=== PATIENT | male | born 1940 | race Caucasian/White ===

== ENCOUNTER 2023-09-19 10:38 | Emergency (ER) | payer OTHER, SELFPAY ==
[2023-09-19 10:44] VITALS: BP 143/74; PULSE 60; RESP 14; TEMP 36.5; O2SAT 99; BMI 28.5
--- NOTE | 2023-09-19 11:27 | ED_ITS ---
HPI - General Adult General Date Seen: 09/19/23 Chief complaint: Hip Injury/Pain Stated complaint: falling - right leg weakness Time Seen by Provider: 09/19/23 11:26 History of Present Illness HPI narrative: This is a very pleasant 82-year-old gentleman accompanied to the ER today by his concern for pain affecting his left buttock and radiating down his left leg in particular down the left hamstring. He is generally healthy. He has a history of colon cancer with colon resection done about 2 or 3 years ago (in [place]) with negative lymph node. He did not require any follow-up radiation or chemotherapy for his colon cancer and is not thought to be cancer free. He does not take any anticoagulants other than baby aspirin. He does have a history of hypertension (on lisinopril) and dyslipidemia (on a statin). He 1st started experiencing some pain in his low back about a month or 2 ago. He says he was under his sink trying to fix a drain when his back was really hurting and made it difficult for him to get up. He saw his physicians in [facility] and apparently was offered pain meds but decided to manage conservatively with over counter medications. Pain got better for a while. He has had some intermittent low back pain since then. However for the past couple of weeks he has had worsening pain in particular in his right posterior pelvis and buttock and radiating down his right arm. Pain is gotten worse for the past couple of days and he is now getting shooting pains down his leg and he feels like sometimes when he steps on his leg it might give out on him. He has not fallen yet, but he came to the ER today saying that he needs an evaluation to figure out what is wrong before he falls. No numbness or weakness in his leg. He is not exactly sure why it is giving out though. No fever or chills. No anterior abdominal pain. His pain is predominantly in the right buttock area. He is not having much back pain today. Left leg is normal. Related Data Home Medications ?Medication ?Instructions ?Recorded ?Confirmed allopurinol 100 mg tablet 100 mg PO DAILY 09/19/23 09/19/23 aspirin 81 mg tablet,delayed 81 mg PO DAILY 09/19/23 09/19/23 release (Adult Aspirin Regimen) atenolol .ROUTE 09/19/23 atorvastatin .ROUTE 09/19/23 hydrochlorothiazide PO 09/19/23 lisinopril 2.5 mg tablet 2.5 mg PO DAILY 09/19/23 09/19/23 pantoprazole 40 mg granules 40 mg PO DAILY 09/19/23 09/19/23 delayed-release for susp in packet (Protonix) Previous Rx's ?Medication ?Instructions ?Recorded Walker- 4 Wheels #1 ea 09/19/23 hydrocodone 5 mg-acetaminophen 325 1 tab PO Q4-6H PRN pain #14 tabs 09/19/23 mg tablet metoclopramide HCl 10 mg tablet 10 mg PO Q6H PRN nausea and 09/19/23 (Reglan) vomiting #10 tabs Allergies Allergy/AdvReac Type Severity Reaction Status Date / Time acetaminophen [From Percocet] AdvReac Mild Depression Verified 09/19/23 10:53 oxycodone [From Percocet] AdvReac Mild Depression Verified 09/19/23 10:53 PFSH PFSH Social History Smoking Status: Former smoker What tobacco products do you use: cigarettes Smoking quit date/years: >15 years ago Do you use any of these nicotine containing products: None How often do you have a drink containing alcohol: monthly or less How many standard drinks containing alcohol do you have on a typical day: 1 or 2 How often do you have six or more drinks on one occasion: Never AUDIT-C Alcohol total score: 1 Non-prescribed substance use: denies use Exam Narrative: Exam Narrative: Constitutional: Appears well-developed and well-nourished. Alert. Conversant. Non toxic. HENT: Head: Atraumatic. Nose: Nose normal. Mouth/Throat: Oral mucosa is clear and moist. no trismus. Pharynx normal. Eyes: Conjunctivae normal. EOM normal. Pupils equal, round, and reactive to light. No scleral icterus. Neck: Normal range of motion. Neck supple. No tracheal deviation present. Cardiovascular: Normal rate, regular rhythm. No gallop. No friction rub. No murmur heard. Symmetric radial artery pulses Pulmonary/Chest: Effort normal. No stridor. No respiratory distress. No wheezes. No rales. No rhonchi . No tenderness. Abdominal: Soft. Bowel sounds normal. No distension. No mass. No tenderness. No rebound. No guarding. Musculoskeletal: RUE: Normal range of motion. No tenderness. No deformity LUE: Normal range of motion. No tenderness. No deformity RLE: Normal range of motion. No edema. No tenderness. No deformity LLE: Normal range of motion. No edema. No tenderness. No deformity Neurological: Alert and oriented to person, place, and time. Normal strength. CN II-VII intact. No sensory deficit. GCS eye subscore is 4. GCS verbal subscore is 5. GCS motor subscore is 6. Normal coordination . He walks with a walker in the hallway. No footdrop. He uses the walker to prevent his right leg from giving out on him. Sensory: Normal light touch sensation bilaterally on the anteromedial thigh (L3), medial malleolus (L4), dorsal first web space (L5), lateral malleolus (S1). Strength: 5/5 strength hip flexors (L3) on the rig ht and left 5/5 strength in the quadriceps (L4) on t he right and left 5/5 strength in the tibialis anterior 5/5 strength in the EHL (L5) on the righ t and left 5/5 strength in the gastrocnemius (S1) o n the right and left 5/5 strength in the hamstring on the rig ht and left DTRs: symmetric in the patella (2/4) Negative straight leg raise bilaterally. Skin: Skin is warm and dry. No rash noted. No pallor. Normal capillary refill. Psychiatric: Normal mood. Normal affect. Const: Vital Signs, click to edit/add: Vital Signs - 24 hr 09/19/23 10:44 Temperature 97.7 F Pulse Rate [Pulse Oximeter] 60 Respiratory Rate 14 Blood Pressure [Ri ght Upper Arm] 143/74 H Pulse Oximetry 99 Oxygen Delivery Me thod Room Air Course Vital Signs Vital signs: Initial Vital Signs Temperature 97.7 F 09/19/23 10:44 Temperature Source Temporal Artery Scan 09/19/23 10:44 Pulse Rate 60 09/19/23 10:44 Respiratory Rate 14 09/19/23 10:44 Blood Pressure 143/74 H 09/19/23 10:44 Blood Pressure Mean 97 09/19/23 10:44 Blood Pressure Position Sitting 09/19/23 10:44 Pulse Oximetry 99 09/19/23 10:44 Oxygen Delivery Method Room Air 09/19/23 10:44 Vital Signs Temperature 97.7 F 09/19/23 10:44 Pulse Rate 60 09/19/23 10:44 Respiratory Rate 14 09/19/23 10:44 Blood Pressure 143/74 H 09/19/23 10:44 Pulse Oximetry 99 09/19/23 10:44 Oxygen Delivery Method Room Air 09/19/23 10:44 Temperature 97.7 F 09/19/23 10:44 Pulse Rate 60 09/19/23 10:44 Respiratory Rate 14 09/19/23 10:44 Blood Pressure 143/74 H 09/19/23 10:44 Pulse Oximetry 99 09/19/23 10:44 Oxygen Delivery Method Room Air 09/19/23 10:44 Medical Decision Making MDM Narrative Medical decision making narrative: This patient presented with right-sided buttock pain with some pain radiating down his right leg. Broad differential considered. This would include lumbar spine pathology such as lumbar radiculopathy. Also consider pelvic pathology such as right hip fracture, pelvic or hip muscle injury. No evidence for i nguinal hernia, shingles, cellulitis. No evidence for ischemia in the leg. No focal weakness to suggest stroke. No fever chills to suggest a septic hip arthritis. The patient did not sustain any recent trauma, therefore x-rays are not necessary due to the low likelihood of fracture or subluxation. The patient has not had a fever, saddle/perineal anesthesia, bilateral foot numbness, or bowel or bladder dysfunction. There is no clinical evidence of cauda equina syndrome, discitis, spinal/epidural space hematoma or epidural abscess. However given history of malignancy and progressively worsening symptoms not responding to conservative management over the past month or 2, as well as his age, we did feel that MRI of his lumbar spine was indicated. MRI is obtained and shows evidence for lesions in the T12 vertebral body as well as in the right side of the sacrum and right iliac bone. These are very suspicious for metastatic disease, per Radiology report. Discussed the radiographic findings with the patient, his , and his granddaughter. Discussed with him that this point we do not know the exact nature of these lesions. However there suspicious for malignancy and given history of colon cancer, could be metastatic colon cancer lesions. He will certainly need further workup to determine whether not these lesions are cancer, or what else may be causing them. He does not currently have any medical care here in [place] (since he lives most of the year in [place]). He did recently have some labs done through his doctors at [facility] in [place]. On July 31 he had a carcinoma embryonic antigen level that was 1.6. He also had screening basic labs on July 31 that were otherwise normal. Alk- phos 112, total bilirubin 0.8. Other LFTs normal. Hemoglobin A1c normal. He plans to be here for the next couple of months and his family can be here to support him. Therefore I did contact our Oncology Department, Dr. Cash. Discussed the presentation with her. She requests that we add on a CBC and CMP to start the workup. These are ordered and pending at the time of discharge. The oncology clinic will contact the patient to arrange expeditious outpatient follow-up. Like will need further workup with PET-CT imaging, additional labs, probably biopsy. Discussed this with the patient and his family. He feels like he will be able to manage his pain with [place]-prescription provided. We discussed opiate precautions. Will also get him a walker to help with balance and prevent falls. Precautions for return to the ER reviewed. Also Recommended outpatient follow-up with the [facility] where he has had primary care [place] in the past. Return to the ER any time if needed. Lab Data Labs: Lab Results 09/19/23 Range/Units 14:37 WBC 10.57 (4.50-11.00) K/uL RBC 5.20 (4.30-5.90) m/uL Hgb 15.0 (13.5-17.5) gm/dL Hct 44.4 (37.0-53.0) % MCV 85 (80-100) fL MCH 29 (26-34) pg MCHC 34 (32-36) gm/dL RDW Coeff of Sweta 13.9 (11.5-15.5) % Plt Count 203 (140-440) K/uL Neut % (Auto) 64.4 (42.0-72.0) % Lymph % (Auto) 27.3 (20-44) % [place] % (Auto) 7.3 (0.0-11.0) % Eos % (Auto) 0.6 (0.0-7.0) % Baso % (Auto) 0.2 (0.0-3.0) % Neut # (Auto) 6.81 (1.7-7.0) K/uL Lymph # (Auto) 2.89 (0.90-2.90) K/uL [place] # (Auto) 0.80 (0.00-0.90) K/UL Eos # (Auto) 0.06 (0.00-0.50) K/uL Baso # (Auto) 0.02 (0.00-0.30) K/uL Abs Immat Gran (auto) 0.02 (0.00-0.30) K/uL Imm/Tot Granulo (auto) 0.2 % Sodium 136 (135-149) mmol/L Potassium 3.8 (3.6-5.1) mmol/L Chloride 106 (96-114) mmol/L Carbon Dioxide 20 (20-32) mmol/L Anion Gap 10 (7-15) mEq/L BUN 33 H (7-30) mg/dL Creatinine 1.3 (0.5-1.5) mg/dL Estimated Creat Clear 48.91 Estimated GFR 55 ml/min Glucose 119 H (60-115) mg/dL Calcium 9.6 (8.4-10.6) mg/dL Total Bilirubin 0.8 (0.1-1.5) mg/dL AST 36 H (12-35) U/L ALT 17 (4-50) U/L Alkaline Phosphatase 193 H (40-150) U/L Total Protein 8.1 (6.0-8.3) g/dL Albumin 4.8 (3.3-5.0) g/dL Imaging Data MRI L spine: Attestation: I have reviewed the pertinent imaging results. Radiologist's impression: Impression: 1. Multiple suspicious marrow lesions involving the T12 vertebral body, right S1 sacral ala, and right ilium, highly suspicious for metastatic disease. Clinical correlation advised. 2. No evidence of pathologic fracture. 3. Scattered spondylosis with low-grade neural foraminal narrowing as detailed. No spinal canal stenosis. 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 Discharge Plan Discharge Clinical Impression: Cancer, metastatic to bone Patient Disposition: Home, Self-Care Condition: Stable Instructions: Bone Metastasis (ED) Additional Instructions: As we discussed, you will receive a phone call from the [facility] oncology clinic to set up a plan for follow-up and further workup. It is very important for you to follow-up with the oncologists and get further testing. Also, please call your doctors at the [facility] to set up a checkup appointment with them. They will be able to help you with ongoing pain management. Use the prescription for pain medicine if needed for pain. Be careful because this can cause drowsiness and dizziness. Avoid dangerous activities such as driving while you are taking the pain killers. Prescriptions: New hydrocodone-acetaminophen 5-325 mg tablet 1 tab PO Q4-6H PRN (Reason: pain) Qty: 14 0RF metoclopramide HCl [Reglan] 10 mg tablet 10 mg PO Q6H PRN (Reason: nausea and vomiting) Qty: 10 0RF (DME) Walker- 4 Wheels Misc See Rx Instructions .Route Qty: 1 0RF Rx Instructions: As directed No Action lisinopril 2.5 mg tablet 2.5 mg PO DAILY pantoprazole [Protonix] [address] for susp in packet 40 mg PO DAILY hydrochlorothiazide PO atorvastatin .ROUTE atenolol .ROUTE aspirin [Adult Aspirin Regimen] 81 mg tablet,delayed release (DR/EC) 81 mg PO DAILY allopurinol 100 mg tablet 100 mg PO DAILY Follow Up/Referrals: Provider,Not a Local [Primary Care Provider] - Stand Alone Forms: My Team Zone Info Instructions
--- NOTE | 2023-09-19 11:45 | CRLHL7_ITS ---
For Patients: As a result of the Century Cures Act, medical imaging exams and procedure reports are released immediately into your electronic medical record. You may view this report before your referring provider. If you have questions, please contact your health care provider. Indication: Low back, right buttock, and right leg pain. Right leg weakness. Technique: Multiplanar, multisequence, MRI of the lumbar spine, obtained without contrast. Comparison: No relevant comparison studies available at this institution. Findings: The normal lumbar lordosis is. No significant spondylolisthesis. Minimal chronic anterior wedge configuration of L1. No acute osseous abnormality. Lipid-rich hemangioma within the left aspect of the T12 vertebral body. Focal sclerotic, STIR hyperintense lesions are noted at the right superior T12 body, right S1 sacral ala, and scattered throughout the right ilium. Low-lying conus medullaris, terminating at approximately L3-L4. No suspicious findings identified in the paraspinal soft tissues. Bilateral presumed renal cysts. Degenerative changes and bridging osteophytes at the included SI joints. T11-T12: No neural foraminal or spinal canal stenosis. T12-L1: Mild diffuse disc bulge. No neural foraminal or spinal canal stenosis. L1-L2: Mild diffuse disc bulge. No neural foraminal or spinal canal stenosis. L2-L3: Mild diffuse disc bulge, mild facet arthropathy. No neural foraminal or spinal canal stenosis. L3-L4: Mild diffuse disc bulge, mild facet arthropathy. No left, mild-moderate right neural foraminal narrowing. No spinal canal stenosis. L4-L5: Mild diffuse disc bulge, moderate right asymmetric facet arthropathy. No left, mild right neural foraminal narrowing. No spinal canal stenosis.. L5-S1: Shallow central protrusion, mild facet arthropathy. No neural foraminal or spinal canal stenosis. Impression: 1. Multiple suspicious marrow lesions involving the T12 vertebral body, right S1 sacral ala, and right ilium, highly suspicious for metastatic disease. Clinical correlation advised. 2. No evidence of pathologic fracture. 3. Scattered spondylosis with low-grade neural foraminal narrowing as detailed. No spinal canal stenosis. Dictated by Fely Vazquez MD @ 09/19/2023 12:52:33 PM (Electronically Signed)
[2023-09-19 14:45] LABS: Basophils Absolute Auto 0.02 K/uL (0.00-0.30); Basophils Percent Auto 0.2 % (0.0-3.0); Eosinophils Absolute Auto 0.06 K/uL (0.00-0.50); Eosinophils Percent Auto 0.6 % (0.0-7.0); Hematocrit 44.4 % (37.0-53.0); Immature Granulocytes Abs Auto 0.02 K/uL (0.00-0.30); Immature Granulocytes Pct Auto 0.2 %; Lymphocytes Absolute Auto 2.89 K/uL (0.90-2.90); Lymphocytes Percent Auto 27.3 % (20-44); Mean Corpuscular HGB Conc 34 gm/dL (32-36); Mean Corpuscular Hemoglobin 29 pg (26-34); Mean Corpuscular Volume 85 fL (80-100); Monocytes Percent Auto 7.3 % (0.0-11.0); Neutrophils Absolute Auto 6.81 K/uL (1.7-7.0); Neutrophils Percent Auto 64.4 % (42.0-72.0); Platelet Count* 203 K/uL (140-440); RDW Coefficient of Variation % 13.9 % (11.5-15.5); White Blood Count* 10.57 K/uL (4.50-11.00)
[2023-09-19 14:52] LABS: Slide Review Reflex No
[2023-09-19 15:15] LABS: Albumin* 4.8 g/dL (3.3-5.0); Chloride* 106 mmol/L (96-114); Potassium* 3.8 mmol/L (3.6-5.1); Sodium* 136 mmol/L (135-149)
[2023-09-19 15:17] LABS: Creatinine* 1.3 mg/dL (0.5-1.5); Est. Creatinine Clearance* 48.91; Estimated Glomerular Filt Rate 55 ml/min
[2023-09-19 15:18] LABS: Alanine Aminotransferase* 17 U/L (4-50); Alkaline Phosphatase* 193 U/L (40-150); Anion Gap 10 mEq/L (7-15); Aspartate Amino Transferase* 36 U/L (12-35); Bilirubin Total* 0.8 mg/dL (0.1-1.5); Blood Urea Nitrogen* 33 mg/dL (7-30); Calcium* 9.6 mg/dL (8.4-10.6); Carbon Dioxide* 20 mmol/L (20-32); Glucose* 119 mg/dL (60-115); Total Protein* 8.1 g/dL (6.0-8.3)
== END 2023-09-19 14:43 | disposition home or self-care (01) ==
PROVIDERS: Emergency Provider Emergency Medicine
DX: C79.51 Secondary malignant neoplasm of bone (principal)
CPT/HCPCS: 36415; 72148; 80053; 85025; 99284

== ENCOUNTER 2023-09-24 14:32 | Outpatient (CLI) | payer OTHER, SELFPAY ==
--- NOTE | 2023-09-24 15:00 | CRLHL7_ITS ---
For Patients: As a result of the 21st Century Cures Act, medical imaging exams and procedure reports are released immediately into your electronic medical record. You may view this report before your referring provider. If you have questions, please contact your health care provider. INDICATION: Colon cancer metastatic to bone TECHNIQUE: CT chest, abdomen and pelvis acquired with 103 mL Isovue 370 IV contrast. COMPARISON: 09/19/2023 lumbar spine MRI FINDINGS: CHEST: Cardiovascular structures: Heart size is normal. CABG. Postsurgical changes in the ascending aorta. Mediastinum and rebeca: Enlarged right hilar lymph node measuring 2.3 x 1.4 cm. No other adenopathy. Lungs and pleura: Hyperinflation and upper lung predominant paraseptal emphysema. 8 x 4 mm right upper lobe pulmonary nodule image 18 series 3. 7 x 5 mm subpleural nodule medial right lower lobe image 42. 8 mm nodule in the left lung on image 40. Numerous additional tiny nodules throughout both lungs. These are best seen on the MIP images. Chest wall and axilla: No mass or adenopathy. Bones: Sclerosis in the T5 vertebral body compatible with metastasis. Sclerotic T12 metastasis similar to the MRI. Sternotomy. ABDOMEN AND PELVIS: Liver: Unremarkable. Gallbladder and bile ducts: Subtle area of high density in the gallbladder, likely gallstone. Pancreas: Unremarkable. Spleen: Unremarkable. Adrenal glands: Unremarkable. Kidneys: Bilateral cysts. GI tract: Right hemicolectomy. Diverticulosis involving the remainder of the colon. No diverticulitis. Vascular structures: Unremarkable. Lymph nodes: Unremarkable. Miscellaneous: Very small left inguinal hernia containing a couple of sigmoid diverticula. Pelvic Organs: Soft tissue fullness and enhancement in the posterior left prostate gland spanning roughly 3 cm. Prostate cancer not excluded. Bones: Sclerotic lesions in right S1, right inferior pubic bone compatible with metastatic disease. Subtle sclerosis in the medial right iliac bone and posterior right femur also suspicious. IMPRESSION: 1. Multiple sclerotic lesions involving the spine and pelvis, likely metastatic disease. 2. Possible primary tumor in the posterior left prostate gland. Pattern of metastases is consistent with prostate cancer. 3. Alternatively, metastatic disease could be from patient`s known primary colon cancer. 4. Numerous lung nodules, nonspecific. Largest measures 8 mm. 5. Probable cholelithiasis. Please note that all CT scans at this facility use dose modulation, iterative reconstruction, and/or weight-based dosing when appropriate to reduce radiation dose to as low as reasonably achievable. Dictated by Benigno Maher MD @ 09/25/2023 3:42:06 PM (Electronically Signed)
== END 2023-09-24 14:33 | disposition home or self-care (01) ==
LOC: CT 14:35
PROVIDERS: Visit Provider Clinical Nurse Specialist
DX: C79.51 Secondary malignant neoplasm of bone (principal); C18.9 Malignant neoplasm of colon, unspecified
CPT/HCPCS: 71260; 74177; Q9967

== ENCOUNTER 2023-09-27 11:00 | Outpatient (REF) | payer OTHER, SELFPAY ==
[2023-09-29 11:08] LABS: Carcinoembryonic Antigen 1.5 ng/mL
== END 2023-09-27 11:01 | disposition home or self-care (01) ==
LOC: NPINS 11:00
PROVIDERS: Visit Provider Internal Medicine Hematology & Oncology
DX: R97.20 Elevated prostate specific antigen [PSA] (principal); C18.9 Malignant neoplasm of colon, unspecified; R74.8 Abnormal levels of other serum enzymes
CPT/HCPCS: 36415; 82378; 84153

== ENCOUNTER 2023-10-03 15:07 | Outpatient (RCR) | payer OTHER, SELFPAY ==
--- NOTE | 2023-10-15 13:15 | ONC.NURNOTE ---
Addendum entered by Viki Alcaraz RN 10/21/23 14:06: Patient called this morning stating that he spent 2 hours on the phone with [facility] on Saturday trying to get his biopsy results. He questions whether someone from our office can call him to let him know. Results were found in the [facility] record. Last week patient told engineering technical writer that he did not want to schedule at the [facility] to come up with a plan, so no appointment was made. He states that he just wants the results. He was told that [facility] is here and is willing to call with the diagnosis, but that no plan can be made for him without an appointment. He was agreeable to this, however he asked treatment planning questions when he was called. He was told that we would need to do more testing and make an appointment to come up with a plan. See note from [facility]. Original Note: Patient had his bone biopsy completed at [facility] last Saturday. Chemical Etch Operator contacted patient to determine where he plans to follow up with this. He has not adjusted his flight home (Oct 25). He states that he has an appointment set up at home in [place] to discuss all results. He did question how to get this information and have it sent down there. He was told that he will need to contact [facility] if he has not heard from them by Saturday. He is understanding of this and is aware that he can reach out with any help needed.
== END 2024-03-31 23:59 | disposition home or self-care (01) ==
LOC: CCIC 15:07
PROVIDERS: Visit Provider Physician Assistant
DX: C18.9 Malignant neoplasm of colon, unspecified (principal); M89.9 Disorder of bone, unspecified; R97.20 Elevated prostate specific antigen [PSA]; M54.18 Radiculopathy, sacral and sacrococcygeal region; R74.8 Abnormal levels of other serum enzymes; Z79.82 Long term (current) use of aspirin
CPT/HCPCS: 99202; 99204; 99205

== ENCOUNTER 2024-08-21 17:03 | Emergency (ER) | payer OTHER, SELFPAY ==
--- OUTSIDE RECORDS SUMMARY | 2024-07-08 06:43 | XMS_ITS | Encounter Summary ---
Author Name [facility] [place] [place] Organization [facility] Address [address] [place] [address] Care Team Providers Care Airport Operations Manager Name Role Phone CHAS REARDON Primary Care Provider Unavailabl e Insurance Providers: All historical and current Section Date Range: From patient's date of to the date document was created. This section includes the names of all active insurance providers for the patient. Insurance Provider Type of Coverage Plan Name Start of Policy Coverage End of Policy Coverage Group Number Member ID Insurance Provider's Telephone Number Policy Tejeda's Name Patient's Relationship to Policy Tejeda [facility] ([place] MEDICARE ADVANTAGE [facility] ([facility]) Mar 25, 2011 [id number] JULIETTE LOO PATIENT [facility] (R) MEDICARE ADVANTAGE [facility] ([facility]) Mar 25, 2011 [facility] ([facility]) [id number] CINDA JULIETTE PATIENT [facility] (WNR) MEDICARE ADVANTAGE [facility] ([facility]) Mar 25, 2011 [facility] ([facility]) [id number] JULIETTE LOO PATIENT [facility] (R) MEDICARE ADVANTAGE [facility] ([facility]) Mar 25, 2011 [id number] JULIETTE LOO PATIENT Selected Encounter This section includes the information on record at [place] for the Encounter. Date/Time Encounter Type Encounter Description Reason Pro vider Source Jul 08, 2024 11:43 AM Outpatient Encounter PRIMARY CARE/MEDICINE IHE Encounter Template Text not used by [place] Plan of Treatment: Future Appointments (+ 6 months) and Future Tests (+/- 45 days) The Plan of Treatment section includes future care activities for the patient from all [place] treatmentfacilities. This section includes future appointments and future orders which are active, pending or scheduled. Active, Pending, and Scheduled Orders This section includes a listing of several types of active, pending, and scheduled orders, including clinic medications orders, diagnostic test orders, procedure orders and consult orders; where the start date of the order is 45 days before the date of the Encounter or 45 days after the date of theEncounter. The data comes from all [place] treatment facilities. Test Date/Time Test Type Test Details Facility Name Jul 03, 2024 12:00 AM Laboratory - Chemi stry Order COMPREHENSIVE METABOLIC (CHEM 13) BLOOD-GOLD SERUM SP [facility] Jul 03, 2024 12:00 AM Laboratory - Chemi stry Order LIPID PROFILE BLOOD-GOLD SERUM SP [facility] Jul 03, 2024 12:00 AM Laboratory - Chemi stry Order HEMOGLOBIN A1C (LAB) BLOOD-LAVENDER$ SP [facility] Jul 03, 2024 12:00 AM Laboratory - Chemi stry Order TSH BLOOD-GOLD SERUM SP [facility] Jul 03, 2024 12:00 AM Laboratory - Chemi stry Order CBC WITH NO DIFF BLOOD-LAVENDER$ SP [facility] Jul 03, 2024 12:00 AM Laboratory - Chemi stry Order VITAMIN D,25-OH,TOTAL BLOOD-GOLD SERUM SP [facility] Social History: Smoking Status (Most current) and Tobacco Use (All prior to encounter date) This section includes the most current, and the historical, smoking and tobacco- related health factors from the [place] facility where the Encounter took place. Current Smoking Status This section includes the most current smoking, or tobacco-related health factor, from the [place] facility where the Encounter took place. Date/Time Current Smoking Status Comment Facil ity Jul 04, 2023 09:09 AM [place]-TOBACCO QUIT 15 YRS OR MORE [facility] Tobacco Use History This section includes a history of the smoking, or tobacco-related health factors, that were collected on or before the date of the Encounter. The data comes from the [place] facility where the Encounter took place. Date/Time Smoking Status/Tobacco Use Comment F acility Jul 04, 2023 09:09 AM [place]-TOBACCO QUIT 15 YRS OR MORE [facility] Encounter Notes: All associated encounter notes This section contains the clinical notes associated to the Encounter. Date/Time Encounter Note(s) Provider Source Jul 08, 2024 11:43 AM ADMINISTRATIVE NOT E: LOCAL TITLE: SCHEDULERS' NOTE STANDARD TITLE: ADMINISTRATIVE NOTE DATE OF NOTE: JUL 08, 2024@11:43 ENTRY DATE: JUL 08, 2024@11:43:56 AUTHOR: MYRA HARVEY COSIGNER: URGENCY: STATUS: COMPLETED MESSAGE WAS LEFT FOR 1ST ATTEMPT TRYING TO GET IN CONTACT TO SCHEDULE FOR COR PACT MD 2 PATIENT DID NOT ANSWER, A VOICEMAIL WAS LEFT. FURTHER ATTEMPTS AND A LETTER WILL BE MADE /tiffany/ GRIS HANSON Signed: 07/08/2024 11:54 GRIS HARVEY OC
--- OUTSIDE RECORDS SUMMARY | 2024-07-09 05:44 | XMS_ITS | Encounter Summary ---
Author Name [facility] ([place]) [facility] Address [address] [place] [address] Care Team Providers Care Optimization Consultant Name Role Phone CHAS REARDON Primary Care [...] Tejeda's Name Patient's Relationship to Policy Tejeda [facility] (W MEDICARE ADVANTAGE [facility] ([facility]) Mar 25, 2011 [id number] JULIETTE LOO PATIENT [facility] (R) MEDICARE ADVANTAGE [facility] ([facility]) Mar 25, 2011 [facility] ([facility]) [id number] CINDA JULIETTE PATIENT [facility] (WNR) MEDICARE ADVANTAGE [facility] ([facility]) Mar 25, 2011 [facility] ([facility]) [id number] JULIETTE LOO PATIENT [facility] (R) MEDICARE ADVANTAGE [facility] ([facility]) Mar 25, 2011 [id number] JULIETTE LOO PATIENT Selected Encounter This section includes the information on record at [place] for the Encounter. Date/Time Encounter Type Encounter Description Reason Pro vider Source Jul 09, 2024 10:44 AM Outpatient Encounter PRIMARY CARE/MEDICINE IHE Encounter Template Text not used by [place] Plan of Treatment: Future Appointments (+ 6 months) and Future Tests (+/- 45 days) The Plan of Treatment section includes future care activities for the patient from all [place] treatmentfacilities. This section includes future appointments and [...] of theEncounter. The data comes from all [place] treatment facilities. Test Date/Time Test Type Test Details Facility Name Jul 03, 2024 12:00 AM Laboratory - Chemi stry Order COMPREHENSIVE METABOLIC (CHEM 13) BLOOD-GOLD SERUM SP ONCE [facility] Jul 03, 2024 12:00 AM Laboratory - Chemi stry Order HEMOGLOBIN A1C (LAB) BLOOD-LAVENDER$ [facility] Jul 03, 2024 [...] Order VITAMIN D,25-OH,TOTAL BLOOD-GOLD SERUM SP [facility] Social History: Smoking Status (Most current) and Tobacco Use (All prior to encounter date) This section includes the most current, and the historical, smoking and tobacco- related health factors from the [place] facility where the Encounter took place. Current Smoking Status This section includes the most current smoking, or tobacco-related health factor, from the [place] facility where the Encounter took place. Date/Time Current Smoking Status Comment Facil ity Jul 04, 2023 09:09 AM [place]-TOBACCO FORMER USER [facility] Tobacco Use History This section includes a history of the smoking, or tobacco-related health factors, that were collected on or before the date of the Encounter. The data comes from the [place] facility where the Encounter took place. Date/Time Smoking Status/Tobacco Use Comment F acility Jul 04, 2023 09:09 AM [place]-TOBACCO QUIT 15 YRS OR MORE [facility] Encounter Notes: All associated encounter notes This section contains the clinical notes associated to the Encounter. Date/Time Encounter Note(s) Provider Source Jul 09, 2024 10:45 AM SCANNED NOTE: LOCAL TITLE: POULTRY GRADER LETTER STANDARD TITLE: SCANNED NOTE DATE OF NOTE: JUL 09, 2024@10:45 ENTRY DATE: JUL 09, 2024@10:45:43 AUTHOR: MYRA HARVEY EXP COSIGNER: URGENCY: STATUS: COMPLETED Matt Platt [address] [address] [email or web address] JULIETTE LOO [address] [place], [place] [address] Dear [place]: JULIETTE LOO Date:JUL 09, 2024 You have been referred to [facility] 2 clinic. We have attempted to contact you by telephone but were unsuccessful. Please contact us at your earliest convenience at [phone] or [phone] to schedule your appointment. We value you as being a collaborative partner for your health care and concerns. Thank you for your Service. Confidential Information For Official Use Only GRIS HARVEY CB Jul 09, 2024 10:44 AM ADMINISTRATIVE NOT E: LOCAL TITLE: SCHEDULERS' NOTE STANDARD TITLE: ADMINISTRATIVE NOTE DATE OF NOTE: JUL 09, 2024@10:44 ENTRY DATE: JUL 09, 2024@10:44:43 AUTHOR: MYRA HARVEY EXP COSIGNER: URGENCY: STATUS: COMPLETED 3RD FINAL ATTEMPT TRYING TO GET IN CONTACT WITH [X]CALLED PATIENT TO GET SCHEDULED FOR cor pact md 2, PATIENT DID NOT ANSWER CALL, LEFT VOICEMAIL LETTING THEM KNOW THE REASON FOR THE APPOINTMENT TO GET SCHEDULED FOR AND TO GIVE US A CALL BACK TO GET SCHEDULED [ ]CALLED PATIENT TO GET SCHEDULED FOR, PATIENT DID NOT ANSWER CALL, WAS NOT ABLE TO LEAVE VOICEMAIL DUE TO NUMBER BEING DISCONNECTED/ NOT IN SERVICE /tiffany/ GRIS HANSON Signed: 07/09/2024 10:45 GRIS HARVEY OC
--- OUTSIDE RECORDS SUMMARY | 2024-07-21 04:06 | XMS_ITS | Encounter Summary ---
Author Name Department of Vetera Affairs ([place]) Organization [facility] Address [address] [place] [address] Care Team Providers Care Rim Turning Finisher Name Role Phone CHAS REARDON Primary Care [...] Tejeda's Name Patient's Relationship to Policy Tejeda [facility] (W MEDICARE ADVANTAGE [facility] ([facility]) Mar 25, 2011 [id number] JULIETTE LOO PATIENT [facility] (WNR) MEDICARE [facility] (WNR) Mar 25, 2011 [facility] ([facility]) [id number] CINDA JULIETTE PATIENT [facility] (WNR) MEDICARE ADVANTAGE [facility] (WNR) Mar 25, 2011 [id number] JULIETTE LOO PATIENT [facility] (WNR) MEDICARE ADVANTAGE [facility] ([facility]) Mar 25, 2011 [facility] ([facility]) [id number] JULIETTE LOO PATIENT Selected Encounter This section includes the information on record at [place] for the Encounter. Date/Time Encounter Type Encounter Description Reason Pro vider Source Jul 21, 2024 09:06 AM Outpatient Encounter PRIMARY CARE/MEDICINE IHE Encounter Template Text not used by [place] Plan of Treatment: Future Appointments (+ 6 months) and Future Tests (+/- 45 days) The Plan of Treatment section includes future care activities for the patient from all [place] treatmentfacilities. This section includes future appointments and [...] of theEncounter. The data comes from all [place] treatment facilities. Test Date/Time Test Type Test Details Facility Name Jul 03, 2024 12:00 AM Laboratory - Chemi stry Order COMPREHENSIVE METABOLIC (CHEM 13) BLOOD-GOLD SERUM SP ONCE [facility] Jul 03, 2024 12:00 AM [...] and tobacco- related health factors from the [place] facility where the Encounter took place. Current Smoking Status This section includes the most current smoking, or tobacco-related health factor, from the [place] facility where the Encounter took place. Date/Time Current Smoking Status Comment Facil ity Jul 04, 2023 09:09 AM [place]-TOBACCO FORMER USER [facility] Tobacco Use History This section includes a history of the smoking, or tobacco-related health factors, that were collected on or before the date of the Encounter. The data comes from the [place] facility where the Encounter took place. Date/Time Smoking Status/Tobacco Use Comment F acility Jul 04, 2023 09:09 AM [place]-TOBACCO QUIT 15 YRS OR MORE [facility] Encounter Notes: All associated encounter notes This section contains the clinical notes associated to the Encounter. Date/Time Encounter Note(s) Provider Source Jul 21, 2024 09:06 AM ADMINISTRATIVE NOT E: LOCAL TITLE: SCHEDULERS' NOTE STANDARD TITLE: ADMINISTRATIVE NOTE DATE OF NOTE: JUL 21, 2024@09:06 ENTRY DATE: JUL 21, 2024@09:07:04 AUTHOR: MYRA HARVEY COSIGNER: URGENCY: STATUS: COMPLETED RTC disposition Maximum number of attempts to schedule an appointment have been completed for the following clinic [X] COR PACT MD 2 [ ] COR MH YELLOW HOLTER TECHNICIAN [ ] [facility] PA[facility] PHARM [ ] [facility] LAB DRAW return to clinic order has been dispositioned, if need to schedule patient, please enter new rtc. /tiffany/ GRIS HANSON Signed: 07/21/2024 09:07 GRIS HARVEY
--- OUTSIDE RECORDS SUMMARY | 2024-08-04 05:38 | XMS_ITS | Continuity of Care Document ---
Author Name [facility] Organization [facility] Care Team Providers Care Textile Examiner Name Role Phone [facility] Unavailable Unavailable Problems Combined list of problems from Department of Defense and Veterans Affairs facilities. It does not include entries that were removed or entered in error. Problem Status Onset Date Problem Type Date of Resolution Comments Source CAD - Coronary artery disease Active Condition Sep 03, 2016 Entered By: SUNIL CAMACHO Comment: 2001? CABG 1V and dacron aortic aneurysm repair. [facility] Carcinoma of descending colon Active Condition Jul 16 0 Entered By: SUNIL CAMACHO Comment: 08/20/2018 s/p resection of 2 feet of colon with 16 LNs negative x pt report. No chemo or XRT. [facility] CO-MANAGED PCP Dr. Cecilia Rodríguez [place] Active Condition Sep 03, 2016 Entered By: SUNIL CAMACHO Comment: Cardiology Dr. Mcc[facility] 2019 Entered By: SUNIL CAMACHO Comment: Oncology [facility] 2019 Entered By: SUNIL CAMACHO Comment: Gastroenterology [facility] Diverticulosis Active Condition July 232011 Entered By: LYNDON GUTIERREZ Comment: colonoscopy 05/05/11 at [place], no polyps, int hemorrhoids [facility] DM - Diabetes mellitus Active Condition [facility] GERD - Gastro-esophageal reflux disease Active Condition [facility] Gout Active Condition [facility] History of male erectile disorder Active Condition [facility] HLD - Hyperlipidemia (SNOMED CT 29893190) Active Condition [facility] HTN - Hypertension (SNOMED CT [id number]) Active Condition [facility] Chronic kidney disease Inactive Condition 07/04/2023 [facility] Hypokalemia Inactive Condition 07/04/2023 [facility] Vitamin D deficiency Inactive Condition 07/04/2023 [facility] Diagnosis: ICD-10-CM 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 Medication Details Route Status Patient Instructions Prescription Expires Prescription Number Last Dispense Date Ordering Provider Order Date Order Qty Source ALLOPURINOL 100MG TAB TAKE ONE TABLET BY MOUTH DAILY ORAL ACTIVE ROVERAN,G IORGIO 2019 [facility] ASPIRIN 81MG TAB,EC TAKE ONE TABLET BY MOUTH DAILY ORAL ACTIVE KAHNG,LYNDON 2011 [facility] ATORVASTATI N CA 10MG TAB TAKE ONE TABLET BY MOUTH DAILY ORAL ACTIVE ROVERAN,G IORGIO 2016 [facility] CHOLECALCIF WAN 25MCG (1,000UNIT) TAB TAKE TWO TABLETS BY MOUTH DAILY ORAL ACTIVE ROVERAN,G IORGIO 2016 [facility] HYDROCHLORO THIAZIDE 25MG/TRIAMT ERENE 37.5MG CAP TAKE 2 CAPSULES BY MOUTH DAILY ORAL ACTIVE ROVERAN,G IORGIO 2015 [facility] KETOCONAZOL E 2% SHAMPOO SHAMPOO SMALL AMOUNT TOPICALL Y EVERY 72 HOURS FOR FUNGAL INFECTIO N TOPICA L 07/04/2024 [id number] Emily REARDON P 2023 120 [facility] LISINOPRIL 2.5MG TAB TAKE ONE TABLET BY MOUTH DAILY ORAL ACTIVE ROVERAN,G IORGIO 2015 [facility] LOPERAMIDE CAP,ORAL TAKE 1MG BY MOUTH TWICE A WEEK ORAL ACTIVE ROVERAN,G IORGIO 2019 [facility] MAGNESIUM OXIDE TAB TAKE BY MOUTH DAILY ORAL ACTIVE ROVERAN,G IORGIO 2021 [facility] PANTOPRAZOL E NA 40MG TAB,EC TAKE ONE TABLET BY MOUTH EVERY MORNING BEFORE MEAL ORAL ACTIVE ROVERAN,G IORGIO 2016 [facility] TAMSULOSIN HCL 0.4MG CAP TAKE 1 CAPSULE BY MOUTH AT BEDTIME ORAL ACTIVE ROVERAN,G IORGIO 2020 [facility] Immunizations Combined list of available immunizations from the Department of Defense and Veterans Affairs facilities. Immunization Series Date Given Administered By Site Reaction Lot Number CVX Code Drug Casino Investigator Status Comments Source INFLUENZA, HIGH-DOSE, TRIVALENT, PF 2023 135 complet ed HISTORICA L INFORMATI ON - FROM PUBLIC AGENCY, Received from [facility] Immunizat ion Registry on 4; [id number] [facility] INFLUENZA, HIGH-DOSE, QUADRIVALENT 2022 197 complet ed HISTORICA L INFORMATI ON - FROM PUBLIC AGENCY, Received from [facility] Immunizat ion Registry on 4; [id number] [facility] INFLUENZA, UNSPECIFIED FORMULATION 2021 88 complet ed HISTORICA L INFORMATI ON - FROM PATIENT'S WRITTEN RECORD, [facility] INFLUENZA, INJECTABLE, QUADRIVALENT, PRESERVATIVE FREE 2021 150 complet ed HISTORICA L INFORMATI ON - FROM OTHER REGISTRY, [facility] COVID-19 (MODERNA), MRNA, LNP-S, PF, 100 MCG/0.5ML DOSE OR 50 MCG/0.25ML DOSE 3 2021 207 complet ed HISTORICA L INFORMATI ON - FROM OTHER REGISTRY, [facility] COVID-19 (MODERNA), MRNA, LNP-S, PF, 100 MCG/0.5ML DOSE OR 50 MCG/0.25ML DOSE 2 2020 207 complet ed [facility] INFLUENZA, HIGH-DOSE, QUADRIVALENT 2020 197 complet ed HISTORICA L INFORMATI ON - FROM OTHER REGISTRY, [facility] INFLUENZA, UNSPECIFIED FORMULATION 2020 88 complet ed [facility] COVID-19 (MODERNA), MRNA, LNP-S, PF, 100 MCG/0.5ML DOSE OR 50 MCG/0.25ML DOSE 1 2020 207 complet ed [facility] INFLUENZA, HIGH-DOSE, QUADRIVALENT 2019 197 complet ed HISTORICA L INFORMATI ON - FROM OTHER REGISTRY, [facility] INFLUENZA, UNSPECIFIED FORMULATION 2019 88 complet ed [facility] NTE TDAP 1 2018 115 complet ed HISTORICA L INFORMATI ON - FROM OTHER REGISTRY, [facility] INFLUENZA, INJECTABLE, QUADRIVALENT, PRESERVATIVE FREE 2018 150 complet ed HISTORICA L INFORMATI ON - FROM OTHER REGISTRY, [facility] ZOSTER RECOMBINANT 2 2018 187 complet ed HISTORICA L INFORMATI ON - FROM OTHER REGISTRY, [facility] ZOSTER RECOMBINANT 1 2018 187 complet ed HISTORICA L INFORMATI ON - FROM OTHER REGISTRY, [facility] INFLUENZA, INJECTABLE, QUADRIVALENT 2017 158 complet ed HISTORICA L INFORMATI ON - FROM OTHER REGISTRY, [facility] INFLUENZA, INJECTABLE, QUADRIVALENT, PRESERVATIVE FREE 2016 150 complet ed HISTORICA L INFORMATI ON - FROM OTHER REGISTRY, [facility] INFLUENZA, SEASONAL, INJECTABLE, PRESERVATIVE FREE 2015 140 complet ed [facility] INFLUENZA, UNSPECIFIED FORMULATION 2015 88 complet ed HISTORICA L INFORMATI ON - FROM OTHER REGISTRY, [facility] INFLUENZA, UNSPECIFIED FORMULATION 2014 88 complet ed HISTORICA L INFORMATI ON - FROM OTHER REGISTRY, [facility] INFLUENZA, UNSPECIFIED FORMULATION 2014 88 complet ed [facility] PNEUMOCOCCAL CONJUGATE PCV 13 1 2014 133 complet ed HISTORICA L INFORMATI ON - FROM OTHER REGISTRY, [facility] INFLUENZA, UNSPECIFIED FORMULATION 2013 88 complet ed HISTORICA L INFORMATI ON - FROM OTHER REGISTRY, [facility] INFLUENZA, UNSPECIFIED FORMULATION 2013 88 complet ed [facility]) UNSPECIFIED FORMULATION 2012 139 complet ed [facility] INFLUENZA, UNSPECIFIED FORMULATION 2011 88 complet ed [facility] INFLUENZA, UNSPECIFIED FORMULATION 2011 88 complet ed [facility] PNEUMOCOCCAL, UNSPECIFIED FORMULATION 2011 109 complet ed [facility] INFLUENZA, UNSPECIFIED FORMULATION 2010 88 complet ed [facility] Results Combined list of recent chemistry, hematology and other laboratory results from Department of Defense and Veterans Affairs, ranging from 15 months to all on record, depending upon the facility. Order Name Results Value Reference Range Date Interpretation Specimen Comments Source HEMOGLOBI N A1C (LAB) HEMOGLOBIN A1C/HEMOGLO BIN.TOTAL IN BLOOD 6.3 4.6 - 6.0 07/01 H Specimen Type: BLOOD Comment: Values obtained from A1C measurement s can vary. For typical A1C assays a reported value of 7.0 could actually be between 6.72 and 7.28 if measured by a reference method. A reported value of 9.0 could actually be between 8.73 and 9.27. Ref: http://[email or web address] [email or web address]/[place] Pdata.asp Ordering Provider: DIANNE REARDON Report Released Date/Time: Jul 01, 2023 09:22 AM Reporting Lab: [facility] [address] [facility] [address] Performing Lab: [facility] [address] [facility] [address] [facility] LIPID PROFILE CHOLESTEROL [MASS/VOLUM E] IN SERUM OR PLASMA 139 mg/dL 0 - 200 07/01 Specimen Type: SERUM Comment: eGFR CKD-EPI Estimated Glomerular Filtration Rate (eGFR) calculated using the 2020 Chronic Kidney Disease-Epi demiology (CKD-EPI) Collaborati on creatinine equation; units of measure are mL/min/1.73 m2. Results are only valid for adults (>=18 years) whose serum creatinine is in a steady state. eGFR calculation s are not valid for patients with acute kidney injury and for patients on dialysis. Creatinine- based estimates of kidney function may also be inaccurate in patients with reduced creatinine generation due to decreased muscle mass (e.g., malnutritio n, severe hypoalbumin emia, sarcopenia, chronic neuromuscul ar disease, amputations , severe heart failure or liver disease) and in patients with increased creatinine generation due to increased muscle mass (e.g., muscle builders, anabolic steroids) or increased dietary intake. As drug clearance is proportiona l to total GFR and not GFR indexed to body surface area (BSA), in individuals with a BSA substantial ly different than 1.73 m2, drug dosing should be based on the reported eGFR value de-indexed from BSA by multiplying by the individual' s BSA and dividing by 1.73. CKD is diagnosed based on abnormaliti es of kidney structure or function, present for >3 months, with implication s for health and disease. CKD is classified and staged based on cause, eGFR and albuminuria (quantified as urine albumin to creatinine ratio). An eGFR >60 mL/min/1.73 m2 in the absence of increased urine albumin excretion or structural abnormaliti es does not represent CKD. eGFR (mL/min/1.7 3 m2) CKD stage Interpretat ion >=90 G1 Normal 60-89 G2 Mild decrease 45-59 G3A Mild to moderate decrease 30-44 G3B Moderate to severe decrease 15-29 G4 Severe decrease <15 G5 Kidney failure Ordering Provider: DIANNE REARDON Report Released Date/Time: Jul 01, 2023 09:22 AM Reporting Lab: [facility] [address] [facility] [address] Performing Lab: [facility] [address] [facility] [address] [facility] LIPID PROFILE TRIGLYCERID E [MASS/VOLUM E] IN SERUM OR PLASMA 124 mg/dL 0 - 150 07/01 Specimen Type: SERUM Comment: eGFR CKD-EPI Estimated Glomerular Filtration Rate (eGFR) calculated using the 2020 Chronic Kidney Disease-Epi demiology (CKD-EPI) Collaborati on creatinine equation; units of measure are mL/min/1.73 m2. Results are only valid for adults (>=18 years) whose serum creatinine is in a steady state. eGFR calculation s are not valid for patients with acute kidney injury and for patients on dialysis. Creatinine- based estimates of kidney function may also be inaccurate in patients with reduced creatinine generation due to decreased muscle mass (e.g., malnutritio n, severe hypoalbumin emia, sarcopenia, chronic neuromuscul ar disease, amputations , severe heart failure or liver disease) and in patients with increased creatinine generation due to increased muscle mass (e.g., muscle builders, anabolic steroids) or increased dietary intake. As drug clearance is proportiona l to total GFR and not GFR indexed to body surface area (BSA), in individuals with a BSA substantial ly different than 1.73 m2, drug dosing should be based on the reported eGFR value de-indexed from BSA by multiplying by the individual' s BSA and dividing by 1.73. CKD is diagnosed based on abnormaliti es of kidney structure or function, present for >3 months, with implication s for health and disease. CKD is classified and staged based on cause, eGFR and albuminuria (quantified as urine albumin to creatinine ratio). An eGFR >60 mL/min/1.73 m2 in the absence of increased urine albumin excretion or structural abnormaliti es does not represent CKD. eGFR (mL/min/1.7 3 m2) CKD stage Interpretat ion >=90 G1 Normal 60-89 G2 Mild decrease 45-59 G3A Mild to moderate decrease 30-44 G3B Moderate to severe decrease 15-29 G4 Severe decrease <15 G5 Kidney failure Ordering Provider: DIANNE REARDON Report Released Date/Time: Jul 01, 2023 09:22 AM Reporting Lab: [facility] [id number] [facility] [address] Performing Lab: [facility] [address] [facility] [address] [facility] LIPID PROFILE CHOLESTEROL IN HDL [MASS/VOLUM E] IN SERUM OR PLASMA 46 mg/dL 40 - 60 07/01 Specimen Type: SERUM Comment: eGFR CKD-EPI Estimated Glomerular Filtration Rate (eGFR) calculated using the 2020 Chronic Kidney Disease-Epi demiology (CKD-EPI) Collaborati on creatinine equation; units of measure are mL/min/1.73 m2. Results are only valid for adults (>=18 years) whose serum creatinine is in a steady state. eGFR calculation s are not valid for patients with acute kidney injury and for patients on dialysis. Creatinine- based estimates of kidney function may also be inaccurate in patients with reduced creatinine generation due to decreased muscle mass (e.g., malnutritio n, severe hypoalbumin emia, sarcopenia, chronic neuromuscul ar disease, amputations , severe heart failure or liver disease) and in patients with increased creatinine generation due to increased muscle mass (e.g., muscle builders, anabolic steroids) or increased dietary intake. As drug clearance is proportiona l to total GFR and not GFR indexed to body surface area (BSA), in individuals with a BSA substantial ly different than 1.73 m2, drug dosing should be based on the reported eGFR value de-indexed from BSA by multiplying by the individual' s BSA and dividing by 1.73. CKD is diagnosed based on abnormaliti es of kidney structure or function, present for >3 months, with implication s for health and disease. CKD is classified and staged based on cause, eGFR and albuminuria (quantified as urine albumin to creatinine ratio). An eGFR >60 mL/min/1.73 m2 in the absence of increased urine albumin excretion or structural abnormaliti es does not represent CKD. eGFR (mL/min/1.7 3 m2) CKD stage Interpretat ion >=90 G1 Normal 60-89 G2 Mild decrease 45-59 G3A Mild to moderate decrease 30-44 G3B Moderate to severe decrease 15-29 G4 Severe decrease <15 G5 Kidney failure Ordering Provider: DIANNE REARDON Report Released Date/Time: Jul 01, 2023 09:22 AM Reporting Lab: [facility] [address] [facility] [phone] Performing Lab: [facility] [address] [facility] [phone] [facility] LIPID PROFILE CHOLESTEROL IN LDL [MASS/VOLUM E] IN SERUM OR PLASMA BY CALCULATION 69.0 mg/dL 0 - 100 07/01 Specimen Type: SERUM Comment: eGFR CKD-EPI Estimated Glomerular Filtration Rate (eGFR) calculated using the 2020 Chronic Kidney Disease-Epi demiology (CKD-EPI) Collaborati on creatinine equation; units of measure are mL/min/1.73 m2. Results are only valid for adults (>=18 years) whose serum creatinine is in a steady state. eGFR calculation s are not valid for patients with acute kidney injury and for patients on dialysis. Creatinine- based estimates of kidney function may also be inaccurate in patients with reduced creatinine generation due to decreased muscle mass (e.g., malnutritio n, severe hypoalbumin emia, sarcopenia, chronic neuromuscul ar disease, amputations , severe heart failure or liver disease) and in patients with increased creatinine generation due to increased muscle mass (e.g., muscle builders, anabolic steroids) or increased dietary intake. As drug clearance is proportiona l to total GFR and not GFR indexed to body surface area (BSA), in individuals with a BSA substantial ly different than 1.73 m2, drug dosing should be based on the reported eGFR value de-indexed from BSA by multiplying by the individual' s BSA and dividing by 1.73. CKD is diagnosed based on abnormaliti es of kidney structure or function, present for >3 months, with implication s for health and disease. CKD is classified and staged based on cause, eGFR and albuminuria (quantified as urine albumin to creatinine ratio). An eGFR >60 mL/min/1.73 m2 in the absence of increased urine albumin excretion or structural abnormaliti es does not represent CKD. eGFR (mL/min/1.7 3 m2) CKD stage Interpretat ion >=90 G1 Normal 60-89 G2 Mild decrease 45-59 G3A Mild to moderate decrease 30-44 G3B Moderate to severe decrease 15-29 G4 Severe decrease <15 G5 Kidney failure Ordering Provider: DIANNE REARDON Report Released Date/Time: Jul 01, 2023 09:22 AM Reporting Lab: [facility] [address] [facility] [phone] Performing Lab: [facility] [address] [facility] [address] [facility] LIPID PROFILE CHOLESTEROL .TOTAL/CHOL ESTEROL IN HDL [MASS RATIO] IN SERUM OR PLASMA 3.0 4.0 - 6.7 07/01 L Specimen Type: SERUM Comment: eGFR CKD-EPI Estimated Glomerular Filtration Rate (eGFR) calculated using the 2020 Chronic Kidney Disease-Epi demiology (CKD-EPI) Collaborati on creatinine equation; units of measure are mL/min/1.73 m2. Results are only valid for adults (>=18 years) whose serum creatinine is in a steady state. eGFR calculation s are not valid for patients with acute kidney injury and for patients on dialysis. Creatinine- based estimates of kidney function may also be inaccurate in patients with reduced creatinine generation due to decreased muscle mass (e.g., malnutritio n, severe hypoalbumin emia, sarcopenia, chronic neuromuscul ar disease, amputations , severe heart failure or liver disease) and in patients with increased creatinine generation due to increased muscle mass (e.g., muscle builders, anabolic steroids) or increased dietary intake. As drug clearance is proportiona l to total GFR and not GFR indexed to body surface area (BSA), in individuals with a BSA substantial ly different than 1.73 m2, drug dosing should be based on the reported eGFR value de-indexed from BSA by multiplying by the individual' s BSA and dividing by 1.73. CKD is diagnosed based on abnormaliti es of kidney structure or function, present for >3 months, with implication s for health and disease. CKD is classified and staged based on cause, eGFR and albuminuria (quantified as urine albumin to creatinine ratio). An eGFR >60 mL/min/1.73 m2 in the absence of increased urine albumin excretion or structural abnormaliti es does not represent CKD. eGFR (mL/min/1.7 3 m2) CKD stage Interpretat ion >=90 G1 Normal 60-89 G2 Mild decrease 45-59 G3A Mild to moderate decrease 30-44 G3B Moderate to severe decrease 15-29 G4 Severe decrease <15 G5 Kidney failure Ordering Provider: DIANNE REARDON Report Released Date/Time: Jul 01, 2023 09:22 AM Reporting Lab: [facility] [address] [facility] [phone] Performing Lab: [facility] [address] [facility] [address] [facility] COMPREHEN SIVE METABOLIC (CHEM 13) CREATININE [MASS/VOLUM E] IN SERUM OR PLASMA 1.19 mg/dL .64 - 1.27 07/01 Specimen Type: SERUM Comment: eGFR CKD-EPI Estimated Glomerular Filtration Rate (eGFR) calculated using the 2020 Chronic Kidney Disease-Epi demiology (CKD-EPI) Collaborati on creatinine equation; units of measure are mL/min/1.73 m2. Results are only valid for adults (>=18 years) whose serum creatinine is in a steady state. eGFR calculation s are not valid for patients with acute kidney injury and for patients on dialysis. Creatinine- based estimates of kidney function may also be inaccurate in patients with reduced creatinine generation due to decreased muscle mass (e.g., malnutritio n, severe hypoalbumin emia, sarcopenia, chronic neuromuscul ar disease, amputations , severe heart failure or liver disease) and in patients with increased creatinine generation due to increased muscle mass (e.g., muscle builders, anabolic steroids) or increased dietary intake. As drug clearance is proportiona l to total GFR and not GFR indexed to body surface area (BSA), in individuals with a BSA substantial ly different than 1.73 m2, drug dosing should be based on the reported eGFR value de-indexed from BSA by multiplying by the individual' s BSA and dividing by 1.73. CKD is diagnosed based on abnormaliti es of kidney structure or function, present for >3 months, with implication s for health and disease. CKD is classified and staged based on cause, eGFR and albuminuria (quantified as urine albumin to creatinine ratio). An eGFR >60 mL/min/1.73 m2 in the absence of increased urine albumin excretion or structural abnormaliti es does not represent CKD. eGFR (mL/min/1.7 3 m2) CKD stage Interpretat ion >=90 G1 Normal 60-89 G2 Mild decrease 45-59 G3A Mild to moderate decrease 30-44 G3B Moderate to severe decrease 15-29 G4 Severe decrease <15 G5 Kidney failure Ordering Provider: DIANNE REARDON Report Released Date/Time: Jul 01, 2023 09:22 AM Reporting Lab: [facility] [address] [facility] [address] Performing Lab: [facility] [address] [facility] [address] [facility] COMPREHEN SIVE METABOLIC (CHEM 13) UREA NITROGEN [MASS/VOLUM E] IN SERUM OR PLASMA 22 mg/dL 8 - 20 07/01 H Specimen Type: SERUM Comment: eGFR CKD-EPI Estimated Glomerular Filtration Rate (eGFR) calculated using the 2020 Chronic Kidney Disease-Epi demiology (CKD-EPI) Collaborati on creatinine equation; units of measure are mL/min/1.73 m2. Results are only valid for adults (>=18 years) whose serum creatinine is in a steady state. eGFR calculation s are not valid for patients with acute kidney injury and for patients on dialysis. Creatinine- based estimates of kidney function may also be inaccurate in patients with reduced creatinine generation due to decreased muscle mass (e.g., malnutritio n, severe hypoalbumin emia, sarcopenia, chronic neuromuscul ar disease, amputations , severe heart failure or liver disease) and in patients with increased creatinine generation due to increased muscle mass (e.g., muscle builders, anabolic steroids) or increased dietary intake. As drug clearance is proportiona l to total GFR and not GFR indexed to body surface area (BSA), in individuals with a BSA substantial ly different than 1.73 m2, drug dosing should be based on the reported eGFR value de-indexed from BSA by multiplying by the individual' s BSA and dividing by 1.73. CKD is diagnosed based on abnormaliti es of kidney structure or function, present for >3 months, with implication s for health and disease. CKD is classified and staged based on cause, eGFR and albuminuria (quantified as urine albumin to creatinine ratio). An eGFR >60 mL/min/1.73 m2 in the absence of increased urine albumin excretion or structural abnormaliti es does not represent CKD. eGFR (mL/min/1.7 3 m2) CKD stage Interpretat ion >=90 G1 Normal 60-89 G2 Mild decrease 45-59 G3A Mild to moderate decrease 30-44 G3B Moderate to severe decrease 15-29 G4 Severe decrease <15 G5 Kidney failure Ordering Provider: DIANNE REARDON Report Released Date/Time: Jul 01, 2023 09:22 AM Reporting Lab: [facility] [address] [facility] [address] Performing Lab: [facility] [address] [facility] [address] [facility] COMPREHEN SIVE METABOLIC (CHEM 13) GLUCOSE [MASS/VOLUM E] IN SERUM OR PLASMA 105 mg/dL 74 - 118 07/01 Specimen Type: SERUM Comment: eGFR CKD-EPI Estimated Glomerular Filtration Rate (eGFR) calculated using the 2020 Chronic Kidney Disease-Epi demiology (CKD-EPI) Collaborati on creatinine equation; units of measure are mL/min/1.73 m2. Results are only valid for adults (>=18 years) whose serum creatinine is in a steady state. eGFR calculation s are not valid for patients with acute kidney injury and for patients on dialysis. Creatinine- based estimates of kidney function may also be inaccurate in patients with reduced creatinine generation due to decreased muscle mass (e.g., malnutritio n, severe hypoalbumin emia, sarcopenia, chronic neuromuscul ar disease, amputations , severe heart failure or liver disease) and in patients with increased creatinine generation due to increased muscle mass (e.g., muscle builders, anabolic steroids) or increased dietary intake. As drug clearance is proportiona l to total GFR and not GFR indexed to body surface area (BSA), in individuals with a BSA substantial ly different than 1.73 m2, drug dosing should be based on the reported eGFR value de-indexed from BSA by multiplying by the individual' s BSA and dividing by 1.73. CKD is diagnosed based on abnormaliti es of kidney structure or function, present for >3 months, with implication s for health and disease. CKD is classified and staged based on cause, eGFR and albuminuria (quantified as urine albumin to creatinine ratio). An eGFR >60 mL/min/1.73 m2 in the absence of increased urine albumin excretion or structural abnormaliti es does not represent CKD. eGFR (mL/min/1.7 3 m2) CKD stage Interpretat ion >=90 G1 Normal 60-89 G2 Mild decrease 45-59 G3A Mild to moderate decrease 30-44 G3B Moderate to severe decrease 15-29 G4 Severe decrease <15 G5 Kidney failure Ordering Provider: DIANNE REARDON Report Released Date/Time: Jul 01, 2023 09:22 AM Reporting Lab: [facility] [id number] [facility] [phone] Performing Lab: [facility] [address] [facility] [address] [facility] COMPREHEN SIVE METABOLIC (CHEM 13) SODIUM [MOLES/VOLU ME] IN SERUM OR PLASMA 135 mmol/L 136 - 144 07/01 L Specimen Type: SERUM Comment: eGFR CKD-EPI Estimated Glomerular Filtration Rate (eGFR) calculated using the 2020 Chronic Kidney Disease-Epi demiology (CKD-EPI) Collaborati on creatinine equation; units of measure are mL/min/1.73 m2. Results are only valid for adults (>=18 years) whose serum creatinine is in a steady state. eGFR calculation s are not valid for patients with acute kidney injury and for patients on dialysis. Creatinine- based estimates of kidney function may also be inaccurate in patients with reduced creatinine generation due to decreased muscle mass (e.g., malnutritio n, severe hypoalbumin emia, sarcopenia, chronic neuromuscul ar disease, amputations , severe heart failure or liver disease) and in patients with increased creatinine generation due to increased muscle mass (e.g., muscle builders, anabolic steroids) or increased dietary intake. As drug clearance is proportiona l to total GFR and not GFR indexed to body surface area (BSA), in individuals with a BSA substantial ly different than 1.73 m2, drug dosing should be based on the reported eGFR value de-indexed from BSA by multiplying by the individual' s BSA and dividing by 1.73. CKD is diagnosed based on abnormaliti es of kidney structure or function, present for >3 months, with implication s for health and disease. CKD is classified and staged based on cause, eGFR and albuminuria (quantified as urine albumin to creatinine ratio). An eGFR >60 mL/min/1.73 m2 in the absence of increased urine albumin excretion or structural abnormaliti es does not represent CKD. eGFR (mL/min/1.7 3 m2) CKD stage Interpretat ion >=90 G1 Normal 60-89 G2 Mild decrease 45-59 G3A Mild to moderate decrease 30-44 G3B Moderate to severe decrease 15-29 G4 Severe decrease <15 G5 Kidney failure Ordering Provider: DIANNE REARDON Report Released Date/Time: Jul 01, 2023 09:22 AM Reporting Lab: [facility] [id number] [facility] [phone] Performing Lab: [facility] [id number] [facility] [phone] [facility] COMPREHEN SIVE METABOLIC (CHEM 13) POTASSIUM [MOLES/VOLU ME] IN SERUM OR PLASMA 3.7 mmol/L 3.6 - 5.1 07/01 Specimen Type: SERUM Comment: eGFR CKD-EPI Estimated Glomerular Filtration Rate (eGFR) calculated using the 2020 Chronic Kidney Disease-Epi demiology (CKD-EPI) Collaborati on creatinine equation; units of measure are mL/min/1.73 m2. Results are only valid for adults (>=18 years) whose serum creatinine is in a steady state. eGFR calculation s are not valid for patients with acute kidney injury and for patients on dialysis. Creatinine- based estimates of kidney function may also be inaccurate in patients with reduced creatinine generation due to decreased muscle mass (e.g., malnutritio n, severe hypoalbumin emia, sarcopenia, chronic neuromuscul ar disease, amputations , severe heart failure or liver disease) and in patients with increased creatinine generation due to increased muscle mass (e.g., muscle builders, anabolic steroids) or increased dietary intake. As drug clearance is proportiona l to total GFR and not GFR indexed to body surface area (BSA), in individuals with a BSA substantial ly different than 1.73 m2, drug dosing should be based on the reported eGFR value de-indexed from BSA by multiplying by the individual' s BSA and dividing by 1.73. CKD is diagnosed based on abnormaliti es of kidney structure or function, present for >3 months, with implication s for health and disease. CKD is classified and staged based on cause, eGFR and albuminuria (quantified as urine albumin to creatinine ratio). An eGFR >60 mL/min/1.73 m2 in the absence of increased urine albumin excretion or structural abnormaliti es does not represent CKD. eGFR (mL/min/1.7 3 m2) CKD stage Interpretat ion >=90 G1 Normal 60-89 G2 Mild decrease 45-59 G3A Mild to moderate decrease 30-44 G3B Moderate to severe decrease 15-29 G4 Severe decrease <15 G5 Kidney failure Ordering Provider: DIANNE REARDON Report Released Date/Time: Jul 01, 2023 09:22 AM Reporting Lab: [facility] [id number] [facility] [phone] Performing Lab: [facility] [address] [facility] [phone] [facility] COMPREHEN SIVE METABOLIC (CHEM 13) CHLORIDE [MOLES/VOLU ME] IN SERUM OR PLASMA 101 mmol/L 101 - 111 07/01 Specimen Type: SERUM Comment: eGFR CKD-EPI Estimated Glomerular Filtration Rate (eGFR) calculated using the 2020 Chronic Kidney Disease-Epi demiology (CKD-EPI) Collaborati on creatinine equation; units of measure are mL/min/1.73 m2. Results are only valid for adults (>=18 years) whose serum creatinine is in a steady state. eGFR calculation s are not valid for patients with acute kidney injury and for patients on dialysis. Creatinine- based estimates of kidney function may also be inaccurate in patients with reduced creatinine generation due to decreased muscle mass (e.g., malnutritio n, severe hypoalbumin emia, sarcopenia, chronic neuromuscul ar disease, amputations , severe heart failure or liver disease) and in patients with increased creatinine generation due to increased muscle mass (e.g., muscle builders, anabolic steroids) or increased dietary intake. As drug clearance is proportiona l to total GFR and not GFR indexed to body surface area (BSA), in individuals with a BSA substantial ly different than 1.73 m2, drug dosing should be based on the reported eGFR value de-indexed from BSA by multiplying by the individual' s BSA and dividing by 1.73. CKD is diagnosed based on abnormaliti es of kidney structure or function, present for >3 months, with implication s for health and disease. CKD is classified and staged based on cause, eGFR and albuminuria (quantified as urine albumin to creatinine ratio). An eGFR >60 mL/min/1.73 m2 in the absence of increased urine albumin excretion or structural abnormaliti es does not represent CKD. eGFR (mL/min/1.7 3 m2) CKD stage Interpretat ion >=90 G1 Normal 60-89 G2 Mild decrease 45-59 G3A Mild to moderate decrease 30-44 G3B Moderate to severe decrease 15-29 G4 Severe decrease <15 G5 Kidney failure Ordering Provider: DIANNE REARDON Report Released Date/Time: Jul 01, 2023 09:22 AM Reporting Lab: [facility] [address] [facility] [phone] Performing Lab: [facility] [address] [facility] [phone] [facility] COMPREHEN SIVE METABOLIC (CHEM 13) CARBON DIOXIDE, TOTAL [MOLES/VOLU ME] IN SERUM OR PLASMA 23.0 mmol/L - 07/01 Specimen Type: SERUM Comment: eGFR CKD-EPI Estimated Glomerular Filtration Rate (eGFR) calculated using the 2020 Chronic Kidney Disease-Epi demiology (CKD-EPI) Collaborati on creatinine equation; units of measure are mL/min/1.73 m2. Results are only valid for adults (>=18 years) whose serum creatinine is in a steady state. eGFR calculation s are not valid for patients with acute kidney injury and for patients on dialysis. Creatinine- based estimates of kidney function may also be inaccurate in patients with reduced creatinine generation due to decreased muscle mass (e.g., malnutritio n, severe hypoalbumin emia, sarcopenia, chronic neuromuscul ar disease, amputations , severe heart failure or liver disease) and in patients with increased creatinine generation due to increased muscle mass (e.g., muscle builders, anabolic steroids) or increased dietary intake. As drug clearance is proportiona l to total GFR and not GFR indexed to body surface area (BSA), in individuals with a BSA substantial ly different than 1.73 m2, drug dosing should be based on the reported eGFR value de-indexed from BSA by multiplying by the individual' s BSA and dividing by 1.73. CKD is diagnosed based on abnormaliti es of kidney structure or function, present for >3 months, with implication s for health and disease. CKD is classified and staged based on cause, eGFR and albuminuria (quantified as urine albumin to creatinine ratio). An eGFR >60 mL/min/1.73 m2 in the absence of increased urine albumin excretion or structural abnormaliti es does not represent CKD. eGFR (mL/min/1.7 3 m2) CKD stage Interpretat ion >=90 G1 Normal 60-89 G2 Mild decrease 45-59 G3A Mild to moderate decrease 30-44 G3B Moderate to severe decrease 15-29 G4 Severe decrease <15 G5 Kidney failure Ordering Provider: DIANNE REARDON Report Released Date/Time: Jul 01, 2023 09:22 AM Reporting Lab: [facility] [id number] [facility] [phone] Performing Lab: [facility] [address] [facility] [phone] [facility] COMPREHEN SIVE METABOLIC (CHEM 13) CALCIUM [MASS/VOLUM E] IN SERUM OR PLASMA 9.5 mg/dL 8.9 - 10.3 07/01 Specimen Type: SERUM Comment: eGFR CKD-EPI Estimated Glomerular Filtration Rate (eGFR) calculated using the 2020 Chronic Kidney Disease-Epi demiology (CKD-EPI) Collaborati on creatinine equation; units of measure are mL/min/1.73 m2. Results are only valid for adults (>=18 years) whose serum creatinine is in a steady state. eGFR calculation s are not valid for patients with acute kidney injury and for patients on dialysis. Creatinine- based estimates of kidney function may also be inaccurate in patients with reduced creatinine generation due to decreased muscle mass (e.g., malnutritio n, severe hypoalbumin emia, sarcopenia, chronic neuromuscul ar disease, amputations , severe heart failure or liver disease) and in patients with increased creatinine generation due to increased muscle mass (e.g., muscle builders, anabolic steroids) or increased dietary intake. As drug clearance is proportiona l to total GFR and not GFR indexed to body surface area (BSA), in individuals with a BSA substantial ly different than 1.73 m2, drug dosing should be based on the reported eGFR value de-indexed from BSA by multiplying by the individual' s BSA and dividing by 1.73. CKD is diagnosed based on abnormaliti es of kidney structure or function, present for >3 months, with implication s for health and disease. CKD is classified and staged based on cause, eGFR and albuminuria (quantified as urine albumin to creatinine ratio). An eGFR >60 mL/min/1.73 m2 in the absence of increased urine albumin excretion or structural abnormaliti es does not represent CKD. eGFR (mL/min/1.7 3 m2) CKD stage Interpretat ion >=90 G1 Normal 60-89 G2 Mild decrease 45-59 G3A Mild to moderate decrease 30-44 G3B Moderate to severe decrease 15-29 G4 Severe decrease <15 G5 Kidney failure Ordering Provider: DIANNE REARDON Report Released Date/Time: Jul 01, 2023 09:22 AM Reporting Lab: [facility] [address] [facility] [phone] Performing Lab: [facility] [address] [facility] [address] [facility] COMPREHEN SIVE METABOLIC (CHEM 13) PROTEIN [MASS/VOLUM E] IN SERUM OR PLASMA 6.9 g/dL 6.1 - 7.9 07/01 Specimen Type: SERUM Comment: eGFR CKD-EPI Estimated Glomerular Filtration Rate (eGFR) calculated using the 2020 Chronic Kidney Disease-Epi demiology (CKD-EPI) Collaborati on creatinine equation; units of measure are mL/min/1.73 m2. Results are only valid for adults (>=18 years) whose serum creatinine is in a steady state. eGFR calculation s are not valid for patients with acute kidney injury and for patients on dialysis. Creatinine- based estimates of kidney function may also be inaccurate in patients with reduced creatinine generation due to decreased muscle mass (e.g., malnutritio n, severe hypoalbumin emia, sarcopenia, chronic neuromuscul ar disease, amputations , severe heart failure or liver disease) and in patients with increased creatinine generation due to increased muscle mass (e.g., muscle builders, anabolic steroids) or increased dietary intake. As drug clearance is proportiona l to total GFR and not GFR indexed to body surface area (BSA), in individuals with a BSA substantial ly different than 1.73 m2, drug dosing should be based on the reported eGFR value de-indexed from BSA by multiplying by the individual' s BSA and dividing by 1.73. CKD is diagnosed based on abnormaliti es of kidney structure or function, present for >3 months, with implication s for health and disease. CKD is classified and staged based on cause, eGFR and albuminuria (quantified as urine albumin to creatinine ratio). An eGFR >60 mL/min/1.73 m2 in the absence of increased urine albumin excretion or structural abnormaliti es does not represent CKD. eGFR (mL/min/1.7 3 m2) CKD stage Interpretat ion >=90 G1 Normal 60-89 G2 Mild decrease 45-59 G3A Mild to moderate decrease 30-44 G3B Moderate to severe decrease 15-29 G4 Severe decrease <15 G5 Kidney failure Ordering Provider: DIANNE REARDON Report Released Date/Time: Jul 01, 2023 09:22 AM Reporting Lab: [facility] [address] [facility] [phone] Performing Lab: [facility] [address] [facility] [phone] [facility] COMPREHEN SIVE METABOLIC (CHEM 13) ALBUMIN [MASS/VOLUM E] IN SERUM OR PLASMA 3.8 g/dL 3.5 - 4.8 07/01 Specimen Type: SERUM Comment: eGFR CKD-EPI Estimated Glomerular Filtration Rate (eGFR) calculated using the 2020 Chronic Kidney Disease-Epi demiology (CKD-EPI) Collaborati on creatinine equation; units of measure are mL/min/1.73 m2. Results are only valid for adults (>=18 years) whose serum creatinine is in a steady state. eGFR calculation s are not valid for patients with acute kidney injury and for patients on dialysis. Creatinine- based estimates of kidney function may also be inaccurate in patients with reduced creatinine generation due to decreased muscle mass (e.g., malnutritio n, severe hypoalbumin emia, sarcopenia, chronic neuromuscul ar disease, amputations , severe heart failure or liver disease) and in patients with increased creatinine generation due to increased muscle mass (e.g., muscle builders, anabolic steroids) or increased dietary intake. As drug clearance is proportiona l to total GFR and not GFR indexed to body surface area (BSA), in individuals with a BSA substantial ly different than 1.73 m2, drug dosing should be based on the reported eGFR value de-indexed from BSA by multiplying by the individual' s BSA and dividing by 1.73. CKD is diagnosed based on abnormaliti es of kidney structure or function, present for >3 months, with implication s for health and disease. CKD is classified and staged based on cause, eGFR and albuminuria (quantified as urine albumin to creatinine ratio). An eGFR >60 mL/min/1.73 m2 in the absence of increased urine albumin excretion or structural abnormaliti es does not represent CKD. eGFR (mL/min/1.7 3 m2) CKD stage Interpretat ion >=90 G1 Normal 60-89 G2 Mild decrease 45-59 G3A Mild to moderate decrease 30-44 G3B Moderate to severe decrease 15-29 G4 Severe decrease <15 G5 Kidney failure Ordering Provider: DIANNE REARDON Report Released Date/Time: Jul 01, 2023 09:22 AM Reporting Lab: [facility] [address] [facility] [phone] Performing Lab: [facility] [address] [facility] [phone] [facility] COMPREHEN SIVE METABOLIC (CHEM 13) BILIRUBIN.T OTAL [MASS/VOLUM E] IN SERUM OR PLASMA 0.7 mg/dL 0.2 - 1.2 07/01 Specimen Type: SERUM Comment: eGFR CKD-EPI Estimated Glomerular Filtration Rate (eGFR) calculated using the 2020 Chronic Kidney Disease-Epi demiology (CKD-EPI) Collaborati on creatinine equation; units of measure are mL/min/1.73 m2. Results are only valid for adults (>=18 years) whose serum creatinine is in a steady state. eGFR calculation s are not valid for patients with acute kidney injury and for patients on dialysis. Creatinine- based estimates of kidney function may also be inaccurate in patients with reduced creatinine generation due to decreased muscle mass (e.g., malnutritio n, severe hypoalbumin emia, sarcopenia, chronic neuromuscul ar disease, amputations , severe heart failure or liver disease) and in patients with increased creatinine generation due to increased muscle mass (e.g., muscle builders, anabolic steroids) or increased dietary intake. As drug clearance is proportiona l to total GFR and not GFR indexed to body surface area (BSA), in individuals with a BSA substantial ly different than 1.73 m2, drug dosing should be based on the reported eGFR value de-indexed from BSA by multiplying by the individual' s BSA and dividing by 1.73. CKD is diagnosed based on abnormaliti es of kidney structure or function, present for >3 months, with implication s for health and disease. CKD is classified and staged based on cause, eGFR and albuminuria (quantified as urine albumin to creatinine ratio). An eGFR >60 mL/min/1.73 m2 in the absence of increased urine albumin excretion or structural abnormaliti es does not represent CKD. eGFR (mL/min/1.7 3 m2) CKD stage Interpretat ion >=90 G1 Normal 60-89 G2 Mild decrease 45-59 G3A Mild to moderate decrease 30-44 G3B Moderate to severe decrease 15-29 G4 Severe decrease <15 G5 Kidney failure Ordering Provider: DIANNE REARDON Report Released Date/Time: Jul 01, 2023 09:22 AM Reporting Lab: [facility] [address] [facility] [phone] Performing Lab: [facility] [address] [facility] [phone] [facility] COMPREHEN SIVE METABOLIC (CHEM 13) ALKALINE PHOSPHATASE [ENZYMATIC ACTIVITY/VO LUME] IN SERUM OR PLASMA 124 [IU]/L 32 - 91 07/01 H Specimen Type: SERUM Comment: eGFR CKD-EPI Estimated Glomerular Filtration Rate (eGFR) calculated using the 2020 Chronic Kidney Disease-Epi demiology (CKD-EPI) Collaborati on creatinine equation; units of measure are mL/min/1.73 m2. Results are only valid for adults (>=18 years) whose serum creatinine is in a steady state. eGFR calculation s are not valid for patients with acute kidney injury and for patients on dialysis. Creatinine- based estimates of kidney function may also be inaccurate in patients with reduced creatinine generation due to decreased muscle mass (e.g., malnutritio n, severe hypoalbumin emia, sarcopenia, chronic neuromuscul ar disease, amputations , severe heart failure or liver disease) and in patients with increased creatinine generation due to increased muscle mass (e.g., muscle builders, anabolic steroids) or increased dietary intake. As drug clearance is proportiona l to total GFR and not GFR indexed to body surface area (BSA), in individuals with a BSA substantial ly different than 1.73 m2, drug dosing should be based on the reported eGFR value de-indexed from BSA by multiplying by the individual' s BSA and dividing by 1.73. CKD is diagnosed based on abnormaliti es of kidney structure or function, present for >3 months, with implication s for health and disease. CKD is classified and staged based on cause, eGFR and albuminuria (quantified as urine albumin to creatinine ratio). An eGFR >60 mL/min/1.73 m2 in the absence of increased urine albumin excretion or structural abnormaliti es does not represent CKD. eGFR (mL/min/1.7 3 m2) CKD stage Interpretat ion >=90 G1 Normal 60-89 G2 Mild decrease 45-59 G3A Mild to moderate decrease 30-44 G3B Moderate to severe decrease 15-29 G4 Severe decrease <15 G5 Kidney failure Ordering Provider: DIANNE REARDON Report Released Date/Time: Jul 01, 2023 09:22 AM Reporting Lab: [facility] [address] [facility] [phone] Performing Lab: [facility] [address] [facility] [address] [facility] COMPREHEN SIVE METABOLIC (CHEM 13) ANION GAP IN SERUM OR PLASMA 11.0 3 - 11 07/01 Specimen Type: SERUM Comment: eGFR CKD-EPI Estimated Glomerular Filtration Rate (eGFR) calculated using the 2020 Chronic Kidney Disease-Epi demiology (CKD-EPI) Collaborati on creatinine equation; units of measure are mL/min/1.73 m2. Results are only valid for adults (>=18 years) whose serum creatinine is in a steady state. eGFR calculation s are not valid for patients with acute kidney injury and for patients on dialysis. Creatinine- based estimates of kidney function may also be inaccurate in patients with reduced creatinine generation due to decreased muscle mass (e.g., malnutritio n, severe hypoalbumin emia, sarcopenia, chronic neuromuscul ar disease, amputations , severe heart failure or liver disease) and in patients with increased creatinine generation due to increased muscle mass (e.g., muscle builders, anabolic steroids) or increased dietary intake. As drug clearance is proportiona l to total GFR and not GFR indexed to body surface area (BSA), in individuals with a BSA substantial ly different than 1.73 m2, drug dosing should be based on the reported eGFR value de-indexed from BSA by multiplying by the individual' s BSA and dividing by 1.73. CKD is diagnosed based on abnormaliti es of kidney structure or function, present for >3 months, with implication s for health and disease. CKD is classified and staged based on cause, eGFR and albuminuria (quantified as urine albumin to creatinine ratio). An eGFR >60 mL/min/1.73 m2 in the absence of increased urine albumin excretion or structural abnormaliti es does not represent CKD. eGFR (mL/min/1.7 3 m2) CKD stage Interpretat ion >=90 G1 Normal 60-89 G2 Mild decrease 45-59 G3A Mild to moderate decrease 30-44 G3B Moderate to severe decrease 15-29 G4 Severe decrease <15 G5 Kidney failure Ordering Provider: DIANNE REARDON Report Released Date/Time: Jul 01, 2023 09:22 AM Reporting Lab: [facility] [address] [facility] [phone] Performing Lab: [facility] [address] [facility] [phone] [facility] COMPREHEN SIVE METABOLIC (CHEM 13) GLOMERULAR FILTRATION RATE/1.73 SQ M.PREDICTED [VOLUME RATE/AREA] IN SERUM, PLASMA OR BLOOD BY CREATININE- BASED FORMULA (CKD-EPI 2020) 61.4 mL/min 60 07/01 Specimen Type: SERUM Comment: eGFR CKD-EPI Estimated Glomerular Filtration Rate (eGFR) calculated using the 2020 Chronic Kidney Disease-Epi demiology (CKD-EPI) Collaborati on creatinine equation; units of measure are mL/min/1.73 m2. Results are only valid for adults (>=18 years) whose serum creatinine is in a steady state. eGFR calculation s are not valid for patients with acute kidney injury and for patients on dialysis. Creatinine- based estimates of kidney function may also be inaccurate in patients with reduced creatinine generation due to decreased muscle mass (e.g., malnutritio n, severe hypoalbumin emia, sarcopenia, chronic neuromuscul ar disease, amputations , severe heart failure or liver disease) and in patients with increased creatinine generation due to increased muscle mass (e.g., muscle builders, anabolic steroids) or increased dietary intake. As drug clearance is proportiona l to total GFR and not GFR indexed to body surface area (BSA), in individuals with a BSA substantial ly different than 1.73 m2, drug dosing should be based on the reported eGFR value de-indexed from BSA by multiplying by the individual' s BSA and dividing by 1.73. CKD is diagnosed based on abnormaliti es of kidney structure or function, present for >3 months, with implication s for health and disease. CKD is classified and staged based on cause, eGFR and albuminuria (quantified as urine albumin to creatinine ratio). An eGFR >60 mL/min/1.73 m2 in the absence of increased urine albumin excretion or structural abnormaliti es does not represent CKD. eGFR (mL/min/1.7 3 m2) CKD stage Interpretat ion >=90 G1 Normal 60-89 G2 Mild decrease 45-59 G3A Mild to moderate decrease 30-44 G3B Moderate to severe decrease 15-29 G4 Severe decrease <15 G5 Kidney failure Ordering Provider: DIANNE REARDON Report Released Date/Time: Jul 01, 2023 09:22 AM Reporting Lab: [facility] [address] [facility] [address] Performing Lab: [facility] [address] [facility] [address] [facility] COMPREHEN SIVE METABOLIC (CHEM 13) ALANINE AMINOTRANSF ERASE [ENZYMATIC ACTIVITY/VO LUME] IN SERUM OR PLASMA 20 [IU]/L 17 - 63 07/01 Specimen Type: SERUM Comment: eGFR CKD-EPI Estimated Glomerular Filtration Rate (eGFR) calculated using the 2020 Chronic Kidney Disease-Epi demiology (CKD-EPI) Collaborati on creatinine equation; units of measure are mL/min/1.73 m2. Results are only valid for adults (>=18 years) whose serum creatinine is in a steady state. eGFR calculation s are not valid for patients with acute kidney injury and for patients on dialysis. Creatinine- based estimates of kidney function may also be inaccurate in patients with reduced creatinine generation due to decreased muscle mass (e.g., malnutritio n, severe hypoalbumin emia, sarcopenia, chronic neuromuscul ar disease, amputations , severe heart failure or liver disease) and in patients with increased creatinine generation due to increased muscle mass (e.g., muscle builders, anabolic steroids) or increased dietary intake. As drug clearance is proportiona l to total GFR and not GFR indexed to body surface area (BSA), in individuals with a BSA substantial ly different than 1.73 m2, drug dosing should be based on the reported eGFR value de-indexed from BSA by multiplying by the individual' s BSA and dividing by 1.73. CKD is diagnosed based on abnormaliti es of kidney structure or function, present for >3 months, with implication s for health and disease. CKD is classified and staged based on cause, eGFR and albuminuria (quantified as urine albumin to creatinine ratio). An eGFR >60 mL/min/1.73 m2 in the absence of increased urine albumin excretion or structural abnormaliti es does not represent CKD. eGFR (mL/min/1.7 3 m2) CKD stage Interpretat ion >=90 G1 Normal 60-89 G2 Mild decrease 45-59 G3A Mild to moderate decrease 30-44 G3B Moderate to severe decrease 15-29 G4 Severe decrease <15 G5 Kidney failure Ordering Provider: DIANNE REARDON Report Released Date/Time: Jul 01, 2023 09:22 AM Reporting Lab: [facility] [address] [facility] [address] Performing Lab: [facility] [address] [facility] [address] [facility] COMPREHEN SIVE METABOLIC (CHEM 13) ASPARTATE AMINOTRANSF ERASE [ENZYMATIC ACTIVITY/VO LUME] IN SERUM OR PLASMA 20 [IU]/L 15 - 41 07/01 Specimen Type: SERUM Comment: eGFR CKD-EPI Estimated Glomerular Filtration Rate (eGFR) calculated using the 2020 Chronic Kidney Disease-Epi demiology (CKD-EPI) Collaborati on creatinine equation; units of measure are mL/min/1.73 m2. Results are only valid for adults (>=18 years) whose serum creatinine is in a steady state. eGFR calculation s are not valid for patients with acute kidney injury and for patients on dialysis. Creatinine- based estimates of kidney function may also be inaccurate in patients with reduced creatinine generation due to decreased muscle mass (e.g., malnutritio n, severe hypoalbumin emia, sarcopenia, chronic neuromuscul ar disease, amputations , severe heart failure or liver disease) and in patients with increased creatinine generation due to increased muscle mass (e.g., muscle builders, anabolic steroids) or increased dietary intake. As drug clearance is proportiona l to total GFR and not GFR indexed to body surface area (BSA), in individuals with a BSA substantial ly different than 1.73 m2, drug dosing should be based on the reported eGFR value de-indexed from BSA by multiplying by the individual' s BSA and dividing by 1.73. CKD is diagnosed based on abnormaliti es of kidney structure or function, present for >3 months, with implication s for health and disease. CKD is classified and staged based on cause, eGFR and albuminuria (quantified as urine albumin to creatinine ratio). An eGFR >60 mL/min/1.73 m2 in the absence of increased urine albumin excretion or structural abnormaliti es does not represent CKD. eGFR (mL/min/1.7 3 m2) CKD stage Interpretat ion >=90 G1 Normal 60-89 G2 Mild decrease 45-59 G3A Mild to moderate decrease 30-44 G3B Moderate to severe decrease 15-29 G4 Severe decrease <15 G5 Kidney failure Ordering Provider: DIANNE REARDON Report Released Date/Time: Jul 01, 2023 09:22 AM Reporting Lab: [place] [id number] [facility] [address] Performing Lab: [address] [address] [facility] VITAMIN D,25-OH,T OTAL 25-HYDROXYV ITAMIN D3 [MASS/VOLUM E] IN SERUM OR PLASMA 39.54 ng/mL 30 - 100 07/01 Specimen Type: SERUM No comment entered. Ordering Provider: DIANNE REARDON Report Released Date/Time: Jul 01, 2023 09:22 AM Reporting Lab: [place] [id number] [facility] [address] Performing Lab: [place] [id number] [facility] [address] [facility] CBC WITH NO DIFF LEUKOCYTES [#/VOLUME] IN BLOOD BY AUTOMATED COUNT 8.36 10*3/uL 4.00 - 10.00 07/01 Specimen Type: BLOOD No comment entered. Ordering Provider: DIANNE REARDON Report Released Date/Time: Jul 01, 2023 09:22 AM Reporting Lab: [place] [id number] [facility] [address] Performing Lab: [place] [id number] [facility] [address] [facility] CBC WITH NO DIFF ERYTHROCYTE S [#/VOLUME] IN BLOOD BY AUTOMATED COUNT 5.30 10*6/uL 4.40 - 5.70 07/01 Specimen Type: BLOOD No comment entered. Ordering Provider: DIANNE REARDON Report Released Date/Time: Jul 01, 2023 09:22 AM Reporting Lab: [place] [id number] [facility] [address] Performing Lab: [place] [id number] [facility] [address] [facility] CBC WITH NO DIFF HEMATOCRIT [VOLUME FRACTION] OF BLOOD BY AUTOMATED COUNT 45.6 40.0 - 53.0 07/01 Specimen Type: BLOOD No comment entered. Ordering Provider: DIANNE REARDON Report Released Date/Time: Jul 01, 2023 09:22 AM Reporting Lab: [place] [id number] [facility] [address] Performing Lab: [place] [id number] [facility] [address] [facility] CBC WITH NO DIFF HEMOGLOBIN [MASS/VOLUM E] IN BLOOD 15.2 g/dL 13.5 - 17.5 07/01 Specimen Type: BLOOD No comment entered. Ordering Provider: DIANNE REARDON Report Released Date/Time: Jul 01, 2023 09:22 AM Reporting Lab: [address] [address] Performing Lab: [address] [address] [facility] CBC WITH NO DIFF MCV [ENTITIC VOLUME] BY AUTOMATED COUNT 86.0 fL 80.0 - 100.0 07/01 Specimen Type: BLOOD No comment entered. Ordering Provider: DIANNE REARDON Report Released Date/Time: Jul 01, 2023 09:22 AM Reporting Lab: [place] [id number] [facility] [address] Performing Lab: [place] [id number] [facility] [address] [facility] CBC WITH NO DIFF MCH [ENTITIC MASS] BY AUTOMATED COUNT 28.7 pg 27.6 - 33.3 07/01 Specimen Type: BLOOD No comment entered. Ordering Provider: DIANNE REARDON Report Released Date/Time: Jul 01, 2023 09:22 AM Reporting Lab: [facility] [address] [facility] [address] Performing Lab: [facility] [address] [facility] [address] [facility] CBC WITH NO DIFF MCHC [MASS/VOLUM E] BY AUTOMATED COUNT 33.3 g/dL 32.0 - 35.0 07/01 Specimen Type: BLOOD No comment entered. Ordering Provider: DIANNE REARDON Report Released Date/Time: Jul 01, 2023 09:22 AM Reporting Lab: [address] [address] Performing Lab: [address] [address] [facility] CBC WITH NO DIFF PLATELET MEAN VOLUME [ENTITIC VOLUME] IN BLOOD BY AUTOMATED COUNT 10.0 fL 8.8 - 11.8 07/01 Specimen Type: BLOOD No comment entered. Ordering Provider: DIANNE REARDON Report Released Date/Time: Jul 01, 2023 09:22 AM Reporting Lab: [address] [address] Performing Lab: [address] [address] [facility] CBC WITH NO DIFF PLATELETS [#/VOLUME] IN BLOOD BY AUTOMATED COUNT 222 10*3/uL 150 - 450 07/01 Specimen Type: BLOOD No comment entered. Ordering Provider: DIANNE REARDON Report Released Date/Time: Jul 01, 2023 09:22 AM Reporting Lab: [address] [address] Performing Lab: [address] [address] [facility] CBC WITH NO DIFF ERYTHROCYTE DISTRIBUTIO N WIDTH [ENTITIC VOLUME] BY AUTOMATED COUNT 43.9 fL 35.1 - 43.9 07/01 Specimen Type: BLOOD No comment entered. Ordering Provider: DIANNE REARDON Report Released Date/Time: Jul 01, 2023 09:22 AM Reporting Lab: [address] [address] Performing Lab: [address] [address] [facility] TSH THYROTROPIN [UNITS/VOLU ME] IN SERUM OR PLASMA 1.484 u[IU]/mL 0.300 - 6.000 07/01 Specimen Type: SERUM No comment entered. Ordering Provider: DIANNE REARDON Report Released Date/Time: Jul 01, 2023 09:22 AM Reporting Lab: [facility] [address] [facility] [address] Performing Lab: [facility] [address] [facility] [address] [facility] URINE ALBUMIN/C REATININE RATIO PANEL CREATININE [MASS/VOLUM E] IN URINE 95.9 mg/dL 07/01 Specimen Type: URINE RANDOM No comment entered. Ordering Provider: DIANNE REARDON Report Released Date/Time: Jul 01, 2023 09:22 AM Reporting Lab: [facility] [address] [facility] [address] Performing Lab: [facility] [address] [facility] [address] [facility] URINE ALBUMIN/C REATININE RATIO PANEL ALBUMIN [MASS/VOLUM E] IN URINE 1.7 mg/dL 0 - 1.9 07/01 Specimen Type: URINE RANDOM No comment entered. Ordering Provider: DIANNE REARDON Report Released Date/Time: Jul 01, 2023 09:22 AM Reporting Lab: [facility] [address] [facility] [address] Performing Lab: [facility] [address] [facility] [address] [facility] URINE ALBUMIN/C REATININE RATIO PANEL ALBUMIN/CRE ATININE [MASS RATIO] IN URINE 17.7 mg/g{cre at} 0 - 30 07/01 Specimen Type: URINE RANDOM No comment entered. Ordering Provider: DIANNE REARDON Report Released Date/Time: Jul 01, 2023 09:22 AM Reporting Lab: [facility] [address] [facility] [address] Performing Lab: [facility] [address] [facility] [address] [facility] UA (C&S If indicated ) - IRIS COLOR OF URINE Yellow 07/01 Specimen Type: URINE RANDOM No comment entered. Ordering Provider: DIANNE REARDON Report Released Date/Time: Jul 01, 2023 09:22 AM Reporting Lab: [facility] [address] [facility] [address] Performing Lab: [facility] [address] [facility] [address] [facility] UA (C&S If indicated ) - IRIS BILIRUBIN.T OTAL [MASS/VOLUM E] IN URINE BY TEST STRIP NEGATIVE mg/dL 07/01 Specimen Type: URINE RANDOM No comment entered. Ordering Provider: DIANNE REARDON Report Released Date/Time: Jul 01, 2023 09:22 AM Reporting Lab: [address] [address] Performing Lab: [address] [address] [facility] UA (C&S If indicated ) - IRIS KETONES [MASS/VOLUM E] IN URINE BY TEST STRIP NEGATIVE mg/dL 07/01 Specimen Type: URINE RANDOM No comment entered. Ordering Provider: DIANNE REARDON Report Released Date/Time: Jul 01, 2023 09:22 AM Reporting Lab: [address] [address] Performing Lab: [address] [address] [facility] UA (C&S If indicated ) - IRIS GLUCOSE [MASS/VOLUM E] IN URINE BY TEST STRIP NEGATIVE mg/dL 07/01 Specimen Type: URINE RANDOM No comment entered. Ordering Provider: DIANNE REARDON Report Released Date/Time: Jul 01, 2023 09:22 AM Reporting Lab: [place] [id number] [facility] [address] Performing Lab: [address] [address] [facility] UA (C&S If indicated ) - IRIS PROTEIN [MASS/VOLUM E] IN URINE BY TEST STRIP NEGATIVE mg/dL 0 - 10 07/01 Specimen Type: URINE RANDOM No comment entered. Ordering Provider: DIANNE REARDON Report Released Date/Time: Jul 01, 2023 09:22 AM Reporting Lab: [place] [id number] [facility] [address] Performing Lab: [place] [id number] [facility] [address] [facility] UA (C&S If indicated ) - IRIS PH OF URINE BY TEST STRIP 5.0 5.0 - 8.0 07/01 Specimen Type: URINE RANDOM No comment entered. Ordering Provider: DIANNE REARDON Report Released Date/Time: Jul 01, 2023 09:22 AM Reporting Lab: [facility] [address] [place] [address] Performing Lab: [facility] [address] [place] [address] [facility] UA (C&S If indicated ) - IRIS ERYTHROCYTE S [#/VOLUME] IN URINE BY TEST STRIP NEGATIVE mg/dL 07/01 Specimen Type: URINE RANDOM No comment entered. Ordering Provider: DIANNE REARDON Report Released Date/Time: Jul 01, 2023 09:22 AM Reporting Lab: [facility] [address] [place] [address] Performing Lab: [facility] [address] [place] [place] [address] [facility] UA (C&S If indicated ) - IRIS NITRITE [PRESENCE] IN URINE BY TEST STRIP NEGATIVE 07/01 Specimen Type: URINE RANDOM No comment entered. Ordering Provider: DIANNE REARDON Report Released Date/Time: Jul 01, 2023 09:22 AM Reporting Lab: [facility] [address] [place] [address] Performing Lab: [facility] [address] [place] [address] [facility] UA (C&S If indicated ) - IRIS LEUKOCYTE ESTERASE [UNITS/VOLU ME] IN URINE LARGE 07/01 Specimen Type: URINE RANDOM No comment entered. Ordering Provider: DIANNE REARDON P Report Released Date/Time: Jul 01, 2023 09:22 AM Reporting Lab: [facility] [address] [place] [address] Performing Lab: [facility] [address] [place] [address] [facility] UA (C&S If indicated ) - IRIS C&S Indicated? YES 07/01 Specimen Type: URINE RANDOM No comment entered. Ordering Provider: DIANNE REARDON P Report Released Date/Time: Jul 01, 2023 09:22 AM Reporting Lab: [facility] [address] [place] [address] Performing Lab: [facility] [address] [facility] [address] [facility] UA (C&S If indicated ) - IRIS APPEARANCE OF URINE HAZY 07/01 Specimen Type: URINE RANDOM No comment entered. Ordering Provider: DIANNE REARDON Report Released Date/Time: Jul 01, 2023 09:22 AM Reporting Lab: [facility] [address] [facility] [address] Performing Lab: [facility] [address] [facility] [address] [facility] UA (C&S If indicated ) - IRIS SPECIFIC GRAVITY OF URINE 1.015 1.003 - 1.035 07/01 Specimen Type: URINE RANDOM No comment entered. Ordering Provider: DIANNE REARDON Report Released Date/Time: Jul 01, 2023 09:22 AM Reporting Lab: [facility] [address] [facility] [address] Performing Lab: [facility] [address] [facility] [address] [facility] UA (C&S If indicated ) - IRIS UROBILINOGE N [MASS/VOLUM E] IN URINE NEGATIVE mg/dL 0 - 2 07/01 Specimen Type: URINE RANDOM No comment entered. Ordering Provider: DIANNE REARDON Report Released Date/Time: Jul 01, 2023 09:22 AM Reporting Lab: [facility] [address] [facility] [address] Performing Lab: [facility] [address] [facility] [address] [facility] UA (C&S If indicated ) - IRIS ERYTHROCYTE S [#/AREA] IN URINE SEDIMENT BY MICROSCOPY HIGH POWER FIELD 4 /[HPF] 0 - 6 07/01 Specimen Type: URINE RANDOM No comment entered. Ordering Provider: DIANNE REARDON Report Released Date/Time: Jul 01, 2023 09:22 AM Reporting Lab: [facility] [address] [facility] [address] Performing Lab: [facility] [address] [facility] [address] [facility] UA (C&S If indicated ) - IRIS LEUKOCYTES [#/AREA] IN URINE SEDIMENT BY MICROSCOPY HIGH POWER FIELD 55 /[HPF] 0 - 6 07/01 H Specimen Type: URINE RANDOM No comment entered. Ordering Provider: DIANNE REARDON Report Released Date/Time: Jul 01, 2023 09:22 AM Reporting Lab: [facility] [address] [facility] [address] Performing Lab: [facility] [address] [facility] [address] [facility] UA (C&S If indicated ) - IRIS LEUKOCYTE CLUMPS [#/AREA] IN URINE SEDIMENT BY MICROSCOPY HIGH POWER FIELD FEW/[HPF ] 07/01 Specimen Type: URINE RANDOM No comment entered. Ordering Provider: DIANNE REARDON Report Released Date/Time: Jul 01, 2023 09:22 AM Reporting Lab: [facility] [address] [facility] [address] Performing Lab: [facility] [address] [facility] [address] [facility] UA (C&S If indicated ) - IRIS EPITHELIAL CELLS.SQUAM OUS [#/AREA] IN URINE SEDIMENT BY MICROSCOPY LOW POWER FIELD FEW/[LPF ] 0 - 5 07/01 Specimen Type: URINE RANDOM No comment entered. Ordering Provider: DIANNE REARDON Report Released Date/Time: Jul 01, 2023 09:22 AM Reporting Lab: [facility] [address] [facility] [address] Performing Lab: [facility] [address] [facility] [address] [facility] UA (C&S If indicated ) - IRIS BACTERIA [#/AREA] IN URINE SEDIMENT BY AUTOMATED COUNT 2+/[HPF] 07/01 Specimen Type: URINE RANDOM No comment entered. Ordering Provider: DIANNE REARDON Report Released Date/Time: Jul 01, 2023 09:22 AM Reporting Lab: [facility] [address] [facility] [address] Performing Lab: [facility] [address] [facility] [address] [facility] UA (C&S If indicated ) - IRIS HYALINE CASTS [#/AREA] IN URINE SEDIMENT BY AUTOMATED COUNT 3 /[LPF] 0 - 2 07/01 H Specimen Type: URINE RANDOM No comment entered. Ordering Provider: DIANNE REARDON Report Released Date/Time: Jul 01, 2023 09:22 AM Reporting Lab: [facility] [address] [facility] [address] Performing Lab: [facility] [address] [facility] [address] [facility] UA (C&S If indicated ) - IRIS MUCUS [#/AREA] IN URINE SEDIMENT BY MICROSCOPY HIGH POWER FIELD ABUNDANT /[HPF] 07/01 Specimen Type: URINE RANDOM No comment entered. Ordering Provider: DIANNE REARDON Report Released Date/Time: Jul 01, 2023 09:22 AM Reporting Lab: [facility] [address] [facility] [address] Performing Lab: [facility] [address] [facility] [address] [facility] UA (C&S If indicated ) - IRIS ASCORBATE [PRESENCE] IN URINE NEGATIVE 07/01 Specimen Type: URINE RANDOM No comment entered. Ordering Provider: DIANNE REARDON Report Released Date/Time: Jul 01, 2023 09:22 AM Reporting Lab: [facility] [address] [facility] [address] Performing Lab: [facility] [address] [facility] [address] [facility] Encounters Combined list of: 1) Encounters from Department of Veterans Affairs facilities going backup to the last 18 months, not all VA inpatient encounters are included; 2) Encounters from the Department of Defense facilities going backup to 280 months. Location Location Details Encounter Type Encounter Number Reason For Visit Attending Provider ADM Date DC Date Status Disposition Source [facility] Outpatient Encounter [id number] 06/25 [facility] Outpatient Encounter [id number] CHE[facility] Outpatient [facility]counter [id number] 07/03 [facility] OFFICE O/P EST LOW 20 MIN [id number] Diagnos is: ICD-10- CM 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 unspeci fied complic atCHEMA Nunn P 07/03 [facility] En[facility] [id number] JOSSIE CHICAS B 07/03 [facility] Outpatient Encounter [id number] 12/01 [facility] Outpatient Encounter [id number] 07/08 [facility] Outpatient Encounter [id number] 07/09 [facility] Outpatient Encounter [id number] 07/21 [facility] Social History Combined list of available smoking, tobacco, and other social history from Department of Defense and Veterans Affairs facilities. Social History Type Response Date Comment Sour e Tobacco smoking status FLIS VA-TOBACCO FORMER USER 07/04/2023 [facility] History of tobacco use VA-TOBACCO QUIT 15 YRS OR MORE 07/04/2023 [facility] History of tobacco use VA-TOBACCO FORMER USER 07/05/2022 [facility] History of tobacco use VA-TOBACCO NEVER USED 07/11/2021 [facility] History of tobacco use VA-TOBACCO NEVER USED 07/19/2020 [facility] History of tobacco use VA-TOBACCO QUIT 15 YRS OR MORE 07/14/2019 [facility] History of tobacco use CURRENT NON-SMOKER 07/25/2017 [facility] History of tobacco use CURRENT NON-SMOKER 09/03/2016 Pt stated he quit smoking 40 yrs ago [facility] History of tobacco use CURRENT NON-SMOKER 08/31/2015 per patient [facility] History of tobacco use CURRENT NON-SMOKER 08/19/2014 [facility] History of tobacco use CURRENT NON-SMOKER 08/19/2013 quit years ago [facility] History of tobacco use CURRENT NON-SMOKER 08/01/2012 quit age 46 [facility] History of tobacco use CURRENT NON-SMOKER 08/02/2011 quit 30 years ago [facility] Plan of Care List of future care activities from [facility] facilities. Additional future care activities may be listed in the Assessment and Plan section. Date/Time Care Activity Care Activity Detail Facili ty 07/03/2024 Laboratory - Chemistry Order COM PREHENSIVE METABOLIC (CHEM 13) BLOOD-GOLD SERUM SP ONCE [facility]
--- OUTSIDE RECORDS SUMMARY | 2024-08-04 05:38 | XMS_ITS | Continuity of Care Document ---
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 It does not include entries that were removed or entered in error. Problem Status Onset Date Problem Type Date of Resolution Comments Source CAD - Coronary artery disease Active Condition Sep 03, 2016 Entered By: SUNIL CAMACHO Comment: 2001? CABG 1V and dacron aortic aneurysm repair. [facility] Carcinoma of descending colon Active Condition Jul 16 0 Entered By: SUNIL CAMACHO Comment: 08/20/2018 s/p resection of 2 feet of colon with 16 LNs negative x pt report. No chemo or XRT. [facility] CO-MANAGED PCP Dr. Cecilia Rodríguez [place] Active Condition Sep 03, 2016 Entered By: SUNIL CAMACHO Comment: Cardiology Dr. Mccoy [facility] 2019 Entered By: SUNIL CAMACHO Comment: Oncology [facility] 2019 Entered By: SUNIL CAMACHO Comment: Gastroenterology [facility] Diverticulosis Active Condition July 232011 Entered By: LYNDON GUTIERREZ Comment: colonoscopy 05/05/11 at [place], no polyps, int hemorrhoids [facility] DM - Diabetes mellitus Active Condition [facility] GERD - Gastro-esophageal reflux disease Active Condition [facility] Gout Active Condition [facility] History of male erectile disorder Active Condition [facility]LD - Hyperlipidemia (SNOMED CT 04343218) Active Condition [facility] HTN - Hypertension (SNOMED CT 88239845) Active Condition [facility] Chronic kidney disease Inactive Condition 07/04/2023 [facility] Hypokalemia Inactive Condition 07/04/2023 [facility] Vitamin D deficiency Inactive Condition 07/04/2023 [facility] Diagnosis: ICD-10-CM E11.8 Type 2 diabetes mellitus [...] MOUTH DAILY ORAL ACTIVE ROVERAN,G IORGIO 2019 [facility] ASPIRIN 81MG TAB,EC TAKE ONE TABLET [...] FOR FUNGAL INFECTIO N TOPICA L 07/04/2024 [id number] 4 Emily REARDON P 2023 120 [facility] [...] Site Reaction Lot Number CVX Code Drug Finishing Supervisor Plastic Sheets Status Comments Source INFLUENZA, HIGH-DOSE, TRIVALENT, PF 2023 135 complet ed HISTORICA L INFORMATI ON - FROM PUBLIC AGENCY, Received from [facility] on 4; [id number] 54 [facility] INFLUENZA, HIGH-DOSE, QUADRIVALENT 2022 197 complet ed HISTORICA L INFORMATI ON - FROM PUBLIC AGENCY, Received from [facility] on 4; [facility] 60 [facility] INFLUENZA, UNSPECIFIED FORMULATION 2021 88 complet ed HISTORICA L INFORMATI ON - FROM PATIENT'S WRITTEN RECORD, [facility] INFLUENZA, INJECTABLE, QUADRIVALENT, PRESERVATIVE FREE 2021 150 complet ed HISTORICA L INFORMATI ON - FROM OTHER REGISTRY, [facility] COVID-19 (MODERNA), MRNA, LNP-S, PF, 100 MCG/0.5ML DOSE OR 50 MCG/0.25ML DOSE 3 2021 207 complet ed HISTORICA L INFORMATI ON - FROM OTHER REGISTRY, [facility] COVID-19 (MODERNA), MRNA, LNP-S, PF, 100 MCG/0.5ML DOSE OR 50 MCG/0.25ML DOSE 2 2020 207 complet ed [facility] INFLUENZA, HIGH-DOSE, QUADRIVALENT 2020 197 complet ed HISTORICA L INFORMATI ON - FROM OTHER REGISTRY, [facility] INFLUENZA, UNSPECIFIED FORMULATION 2020 88 complet ed [facility] COVID-19 (MODERNA), MRNA, LNP-S, PF, 100 MCG/0.5ML DOSE OR 50 MCG/0.25ML DOSE 1 2020 207 complet ed [facility] INFLUENZA, HIGH-DOSE, QUADRIVALENT 2019 197 complet ed HISTORICA L INFORMATI ON - FROM OTHER REGISTRY, [facility] INFLUENZA, UNSPECIFIED FORMULATION 2019 88 complet ed [facility] NTE TDAP 1 2018 115 complet ed HISTORICA L INFORMATI ON - FROM OTHER REGISTRY, [facility] INFLUENZA, INJECTABLE, QUADRIVALENT, PRESERVATIVE FREE 2018 150 complet ed HISTORICA L INFORMATI ON - FROM OTHER REGISTRY, [facility] ZOSTER RECOMBINANT 2 2018 187 complet ed HISTORICA L INFORMATI ON - FROM OTHER REGISTRY, [facility] ZOSTER RECOMBINANT 1 2018 187 complet ed HISTORICA L INFORMATI ON - FROM OTHER REGISTRY, [facility] INFLUENZA, INJECTABLE, QUADRIVALENT 2017 158 complet ed HISTORICA L INFORMATI ON - FROM OTHER REGISTRY, [facility] INFLUENZA, INJECTABLE, QUADRIVALENT, PRESERVATIVE FREE 2016 150 complet ed HISTORICA L INFORMATI ON - FROM OTHER REGISTRY, [facility] INFLUENZA, SEASONAL, INJECTABLE, PRESERVATIVE FREE 2015 140 complet ed [facility] INFLUEN[facility], UNSPECIFIED FORMULATION 2015 88 complet ed HISTORICA L INFORMATI ON - FROM OTHER REGISTRY, [facility] INFLUENZA, UNSPECIFIED FORMULATION 2014 88 complet ed HISTORICA L INFORMATI ON - FROM OTHER REGISTRY, [facility] INFLUENZA, UNSPECIFIED FORMULATION 2014 88 complet ed [facility] PNEUMOCOCCAL CONJUGATE PCV 13 1 2014 133 complet ed HISTORICA L INFORMATI ON - FROM OTHER REGISTRY, [facility] INFLUENZA, UNSPECIFIED FORMULATION 2013 88 complet ed HISTORICA L INFORMATI ON - FROM OTHER REGISTRY, [facility] INFLUENZA, UNSPECIFIED FORMULATION 2013 88 complet ed [facility] UNSPECIFIED FORMULATION 2012 139 complet ed [facility] INFLUENZA, UNSPECIFIED FORMULATION 2011 88 complet ed [facility] INFLUENZA, UNSPECIFIED FORMULATION 2011 88 complet ed [facility] PNEUMOCOCCAL, UNSPECIFIED FORMULATION 2011 109 complet ed [facility] INFLUENZA, UNSPECIFIED FORMULATION 2010 88 complet ed [facility] Results Combined list of recent chemistry, hematology and other laboratory results from Department of Defense and Veterans Affairs, ranging from 15 months to all on record, depending upon the facility. Order Name Results Value Reference Range Date Interpretation Specimen Comments Source CBC WITH NO DIFF LEUKOCYTES [#/VOLUME] IN BLOOD BY AUTOMATED COUNT 8.36 10*3/uL 4.00 - 10.00 07/01 Specimen Type: BLOOD No comment entered. Ordering Provider: DIANNE REARDON Report Released Date/Time: Jul 01, 2023 09:22 AM Reporting Lab: [address] [address] Performing Lab: [address] [address] [facility] CBC WITH NO DIFF ERYTHROCYTE S [#/VOLUME] IN BLOOD BY AUTOMATED COUNT 5.30 10*6/uL 4.40 - 5.70 07/01 Specimen Type: BLOOD No comment entered. Ordering Provider: DIANNE REARDON Report Released Date/Time: Jul 01, 2023 09:22 AM Reporting Lab: [address] [address] Performing Lab: [address] [address] [facility] CBC WITH NO DIFF HEMATOCRIT [VOLUME FRACTION] OF BLOOD BY AUTOMATED COUNT 45.6 40.0 - 53.0 07/01 Specimen Type: BLOOD No comment entered. Ordering Provider: DIANNE REARDON Report Released Date/Time: Jul 01, 2023 09:22 AM Reporting Lab: [place] [id number] [facility] [address] Performing Lab: [address] [address] [facility] CBC WITH NO DIFF HEMOGLOBIN [MASS/VOLUM E] IN BLOOD 15.2 g/dL 13.5 - 17.5 07/01 Specimen Type: BLOOD No comment entered. Ordering Provider: DIANNE REARDON Report Released Date/Time: Jul 01, 2023 09:22 AM Reporting Lab: [facility] [address] [facility] [address] Performing Lab: [place] [id number] [facility] [address] [facility] CBC WITH NO DIFF MCV [ENTITIC VOLUME] BY AUTOMATED COUNT 86.0 fL 80.0 - 100.0 07/01 Specimen Type: BLOOD No comment entered. Ordering Provider: DIANNE REARDON Report Released Date/Time: Jul 01, 2023 09:22 AM Reporting Lab: [facility] [address] [facility] [place] [address] Performing Lab: [facility] [address] [facility] [address] [facility] CBC WITH NO DIFF MCH [ENTITIC MASS] BY AUTOMATED COUNT 28.7 pg 27.6 - 33.3 07/01 Specimen Type: BLOOD No comment entered. Ordering Provider: DIANNE REARDON Report Released Date/Time: Jul 01, 2023 09:22 AM Reporting Lab: [facility] [address] [facility] [address] Performing Lab: [facility] [address] [facility] [address] [facility] CBC WITH NO DIFF MCHC [MASS/VOLUM E] BY AUTOMATED COUNT 33.3 g/dL 32.0 - 35.0 07/01 Specimen Type: BLOOD No comment entered. Ordering Provider: DIANNE REARDON Report Released Date/Time: Jul 01, 2023 09:22 AM Reporting Lab: [facility] [address] [facility] [address] Performing Lab: [facility] [address] [facility] [address] [facility] CBC WITH NO DIFF PLATELET MEAN VOLUME [ENTITIC VOLUME] IN BLOOD BY AUTOMATED COUNT 10.0 fL 8.8 - 11.8 07/01 Specimen Type: BLOOD No comment entered. Ordering Provider: DIANNE REARDON Report Released Date/Time: Jul 01, 2023 09:22 AM Reporting Lab: [facility] [address] [facility] [place] [address] Performing Lab: [facility] [address] [facility] [place] [address] [facility] CBC WITH NO DIFF PLATELETS [#/VOLUME] IN BLOOD BY AUTOMATED COUNT 222 10*3/uL 150 - 450 07/01 Specimen Type: BLOOD No comment entered. Ordering Provider: DIANNE REARDON Report Released Date/Time: Jul 01, 2023 09:22 AM Reporting Lab: [facility] [address] [facility] [address] Performing Lab: [facility] [address] [facility] [place] [address] [facility] CBC WITH NO DIFF ERYTHROCYTE DISTRIBUTIO N WIDTH [ENTITIC VOLUME] BY AUTOMATED COUNT 43.9 fL 35.1 - 43.9 07/01 Specimen Type: BLOOD No comment entered. Ordering Provider: DIANNE REARDON Report Released Date/Time: Jul 01, 2023 09:22 AM Reporting Lab: [facility] [address] [facility] [address] Performing Lab: [place] [id number] [facility] [address] [facility] COMPREHEN SIVE METABOLIC (CHEM 13) [...] Jul 01, 2023 09:22 AM Reporting Lab: [facility] [address] [facility] [address] Performing Lab: [facility] [address] [facility] [address] [facility] COMPREHEN SIVE METABOLIC (CHEM 13) [...] Jul 01, 2023 09:22 AM Reporting Lab: [facility] [address] [facility] [address] Performing Lab: [facility] [address] [facility] [address] [facility] COMPREHEN SIVE METABOLIC (CHEM 13) [...] Jul 01, 2023 09:22 AM Reporting Lab: [facility] [address] [facility] [address] Performing Lab: [facility] [address] [facility] [address] [facility] COMPREHEN SIVE METABOLIC (CHEM 13) [...] Jul 01, 2023 09:22 AM Reporting Lab: [facility] [address] [facility] [address] Performing Lab: [facility] [address] [facility] [address] [facility] COMPREHEN SIVE METABOLIC (CHEM 13) [...] Jul 01, 2023 09:22 AM Reporting Lab: [facility] [address] [facility] [address] Performing Lab: [facility] [address] [facility] [address] [facility] COMPREHEN SIVE METABOLIC (CHEM 13) [...] Jul 01, 2023 09:22 AM Reporting Lab: [facility] [address] [facility] [address] Performing Lab: [facility] [address] [facility] [address] [facility] COMPREHEN SIVE METABOLIC (CHEM 13) [...] Jul 01, 2023 09:22 AM Reporting Lab: [facility] [address] [facility] [address] Performing Lab: [facility] [address] [facility] [address] [facility] COMPREHEN SIVE METABOLIC (CHEM 13) [...] Jul 01, 2023 09:22 AM Reporting Lab: [facility] [address] [facility] [address] Performing Lab: [facility] [address] [facility] [address] [facility] COMPREHEN SIVE METABOLIC (CHEM 13) [...] Jul 01, 2023 09:22 AM Reporting Lab: [facility] [address] [facility] [address] Performing Lab: [facility] [address] [facility] [address] [facility] COMPREHEN SIVE METABOLIC (CHEM 13) [...] Jul 01, 2023 09:22 AM Reporting Lab: [facility] [address] [facility] [address] Performing Lab: [facility] [address] [facility] [address] [facility] COMPREHEN SIVE METABOLIC (CHEM 13) [...] Jul 01, 2023 09:22 AM Reporting Lab: [facility] [address] [facility] [address] Performing Lab: [facility] [address] [facility] [address] [facility] COMPREHEN SIVE METABOLIC (CHEM 13) [...] Jul 01, 2023 09:22 AM Reporting Lab: [facility] [address] [facility] [address] Performing Lab: [facility] [address] [facility] [address] [facility] COMPREHEN SIVE METABOLIC (CHEM 13) [...] Jul 01, 2023 09:22 AM Reporting Lab: [facility] [address] [facility] [address] Performing Lab: [facility] [address] [facility] [address] [facility] COMPREHEN SIVE METABOLIC (CHEM 13) [...] Jul 01, 2023 09:22 AM Reporting Lab: [facility] [address] [facility] [address] Performing Lab: [facility] [address] [facility] [address] [facility] COMPREHEN SIVE METABOLIC (CHEM 13) [...] Jul 01, 2023 09:22 AM Reporting Lab: [facility] [address] [facility] [address] Performing Lab: [facility] [address] [facility] [address] [facility] COMPREHEN SIVE METABOLIC (CHEM 13) [...] Jul 01, 2023 09:22 AM Reporting Lab: [facility] [address] [facility] [address] Performing Lab: [facility] [address] [facility] [address] [facility] HEMOGLOBI N A1C (LAB) HEMOGLOBIN A1C/HEMOGLO BIN.TOTAL [...] Jul 01, 2023 09:22 AM Reporting Lab: [facility] [address] [facility] [address] Performing Lab: [facility] [address] [facility] [address] [facility] LIPID PROFILE CHOLESTEROL [MASS/VOLUM E] [...] Jul 01, 2023 09:22 AM Reporting Lab: [facility] [address] [facility] [address] Performing Lab: [facility] [address] [facility] [address] [facility] LIPID PROFILE TRIGLYCERID E [MASS/VOLUM [...] Jul 01, 2023 09:22 AM Reporting Lab: [facility] [address] [facility] [address] Performing Lab: [facility] [address] [facility] [address] [facility] LIPID PROFILE CHOLESTEROL IN HDL [...] Jul 01, 2023 09:22 AM Reporting Lab: [facility] [address] [facility] [address] Performing Lab: [facility] [address] [facility] [address] [facility] LIPID PROFILE CHOLESTEROL IN LDL [...] Jul 01, 2023 09:22 AM Reporting Lab: [facility] [address] [facility] [address] Performing Lab: [facility] [address] [facility] [address] [facility] LIPID PROFILE CHOLESTEROL .TOTAL/CHOL ESTEROL [...] 09:22 AM Reporting Lab: [facility] [address] [facility] [place] [address] Performing Lab: [facility] [address] [facility] [address] [facility] TSH THYROTROPIN [UNITS/VOLU ME] IN SERUM OR PLASMA 1.484 u[IU]/mL 0.300 - 6.000 07/01 Specimen Type: SERUM No comment entered. Ordering Provider: DIANNE REARDON Report Released Date/Time: Jul 01, 2023 09:22 AM Reporting Lab: [facility] [address] [facility] [place] [address] Performing Lab: [facility] [address] [facility] [address] [facility] UA (C&S If indicated ) - IRIS COLOR OF URINE Yellow 07/01 Specimen Type: URINE RANDOM No comment entered. Ordering Provider: DIANNE REARDON Report Released Date/Time: Jul 01, 2023 09:22 AM Reporting Lab: [facility] [address] [facility] [place] [address] Performing Lab: [facility] [address] [facility] [address] [facility] UA (C&S If indicated ) - [facility] BILIRUBIN.T OTAL [MASS/VOLUM E] IN URINE BY TEST STRIP NEGATIVE mg/dL 07/01 Specimen Type: URINE RANDOM No comment entered. Ordering Provider: DIANNE REARDON Report Released Date/Time: Jul 01, 2023 09:22 AM Reporting Lab: [facility] [address] [facility] [address] Performing Lab[facility] [address] [facility] [address] [facility] UA (C&S If indicated ) - IRIS KETONES [MASS/VOLUM E] IN URINE BY TEST STRIP NEGATIVE mg/dL 07/01 Specimen Type: URINE RANDOM No comment entered. Ordering Provider: DIANNE REARDON Report Released Date/Time: Jul 01, 2023 09:22 AM Reporting Lab: [facility] [address] [facility] [address] Performing Lab: [facility] [address] [facility] [address] [facility] UA (C&S If indicated ) - IRIS GLUCOSE [MASS/VOLUM E] IN URINE BY TEST STRIP NEGATIVE mg/dL 07/01 Specimen Type: URINE RANDOM No comment entered. Ordering Provider: DIANNE REARDON Report Released Date/Time: Jul 01, 2023 09:22 AM Reporting Lab: [facility] [address] [facility] [address] Performing Lab: [facility] [address] [facility] [address] [facility] UA (C&S If indicated ) - IRIS PROTEIN [MASS/VOLUM E] IN URINE BY TEST STRIP NEGATIVE mg/dL 0 - 10 07/01 Specimen Type: URINE RANDOM No comment entered. Ordering Provider: DIANNE REARDON Report Released Date/Time: Jul 01, 2023 09:22 AM Reporting Lab: [facility] [address] [facility] [address] Performing Lab: [facility] [address] [facility] [address] [facility] UA (C&S If indicated ) - IRIS PH OF URINE BY TEST STRIP 5.0 5.0 - 8.0 07/01 Specimen Type: URINE RANDOM No comment entered. Ordering Provider: DIANNE REARDON Report Released Date/Time: Jul 01, 2023 09:22 AM Reporting Lab: [facility] [address] [facility] [address] Performing Lab: [facility] [address] [facility] [address] [facility] UA (C&S If indicated ) - IRIS ERYTHROCYTE S [#/VOLUME] IN URINE BY TEST STRIP NEGATIVE mg/dL 07/01 Specimen Type: URINE RANDOM No comment entered. Ordering Provider: DIANNE REARDON Report Released Date/Time: Jul 01, 2023 09:22 AM Reporting Lab: [facility] [address] [facility] [address] Performing Lab: [facility] [address] [facility] [address] [facility] UA (C&S If indicated ) - IRIS NITRITE [PRESENCE] IN URINE BY TEST STRIP NEGATIVE 07/01 Specimen Type: URINE RANDOM No comment entered. Ordering Provider: DIANNE REARDON Report Released Date/Time: Jul 01, 2023 09:22 AM Reporting Lab: [facility] [address] [facility] [address] Performing Lab: [facility] [address] [facility] [address] [facility] UA (C&S If indicated ) - IRIS LEUKOCYTE ESTERASE [UNITS/VOLU ME] IN URINE LARGE 07/01 Specimen Type: URINE RANDOM No comment entered. Ordering Provider: DIANNE REARDON P Report Released Date/Time: Jul 01, 2023 09:22 AM Reporting Lab: [facility] [address] [facility] [address] Performing Lab: [facility] [address] [facility] [address] [facility] UA (C&S If indicated ) - IRIS C&S Indicated? YES 07/01 Specimen Type: URINE RANDOM No comment entered. Ordering Provider: DIANNE REARDON Report Released Date/Time: Jul 01, 2023 09:22 AM Reporting Lab: [facility] [address] [facility] [place] [address] Performing Lab: [facility] [address] [facility] [address] [facility] UA (C&S If indicated ) - IRIS APPEARANCE OF URINE HAZY 07/01 Specimen Type: URINE RANDOM No comment entered. Ordering Provider: DIANNE REARDON Report Released Date/Time: Jul 01, 2023 09:22 AM Reporting Lab: [facility] [address] [facility] [place] [address] Performing Lab: [facility] [address] [facility] [address] [facility] UA (C&S If indicated ) - IRIS SPECIFIC GRAVITY OF URINE 1.015 1.003 - 1.035 07/01 Specimen Type: URINE RANDOM No comment entered. Ordering Provider: DIANNE REARDON Report Released Date/Time: Jul 01, 2023 09:22 AM Reporting Lab: [facility] [address] [facility] [place] [address] Performing Lab: [facility] [address] [facility] [address] [facility] UA (C&S If indicated ) - IRIS UROBILINOGE N [MASS/VOLUM E] IN URINE NEGATIVE mg/dL 0 - 2 07/01 Specimen Type: URINE RANDOM No comment entered. Ordering Provider: DIANNE REARDON Report Released Date/Time: Jul 01, 2023 09:22 AM Reporting Lab: [facility] [address] [facility] [place] [address] Performing Lab: [facility] [address] [facility] [place] [address] [facility] UA (C&S If indicated ) - IRIS ERYTHROCYTE S [#/AREA] IN URINE SEDIMENT BY MICROSCOPY HIGH POWER FIELD 4 /[HPF] 0 - 6 07/01 Specimen Type: URINE RANDOM No comment entered. Ordering Provider: DIANNE REARDON Report Released Date/Time: Jul 01, 2023 09:22 AM Reporting Lab: [facility] [address] [facility] [place] [address] Performing Lab: [facility] [address] [facility] [address] [facility] UA (C&S If indicated ) - IRIS LEUKOCYTES [#/AREA] IN URINE SEDIMENT BY MICROSCOPY HIGH POWER FIELD 55 /[HPF] 0 - 6 07/01 H Specimen Type: URINE RANDOM No comment entered. Ordering Provider: DIANNE REARDON Report Released Date/Time: Jul 01, 2023 09:22 AM Reporting Lab: [facility] [address] [facility] [address] Performing Lab: [facility] [address] [facility] [address] [facility] UA (C&S If indicated ) - IRIS LEUKOCYTE CLUMPS [#/AREA] IN URINE SEDIMENT BY MICROSCOPY HIGH POWER FIELD FEW/[HPF ] 07/01 Specimen Type: URINE RANDOM No comment entered. Ordering Provider: DIANNE REARDON Report Released Date/Time: Jul 01, 2023 09:22 AM Reporting Lab: [facility] [address] [place] [facility] [address] Performing Lab: [facility] [address] [place] [facility] [address] [facility] UA (C&S If indicated ) - IRIS EPITHELIAL CELLS.SQUAM OUS [#/AREA] IN URINE SEDIMENT BY MICROSCOPY LOW POWER FIELD FEW/[LPF ] 0 - 5 07/01 Specimen Type: URINE RANDOM No comment entered. Ordering Provider: DIANNE REARDON Report Released Date/Time: Jul 01, 2023 09:22 AM Reporting Lab: [facility] [address] [place] [place] [facility] [address] Performing Lab: [facility] [address] [place] [facility] [address] [facility] UA (C&S If indicated ) - IRIS BACTERIA [#/AREA] IN URINE SEDIMENT BY AUTOMATED COUNT 2+/[HPF] 07/01 Specimen Type: URINE RANDOM No comment entered. Ordering Provider: DIANNE REARDON Report Released Date/Time: Jul 01, 2023 09:22 AM Reporting Lab: [facility] [address] [place] [facility] [address] Performing Lab: [facility] [address] [facility] [address] [facility] UA (C&S If indicated ) - IRIS HYALINE CASTS [#/AREA] IN URINE SEDIMENT BY AUTOMATED COUNT 3 /[LPF] 0 - 2 07/01 H Specimen Type: URINE RANDOM No comment entered. Ordering Provider: DIANNE REARDON Report Released Date/Time: Jul 01, 2023 09:22 AM Reporting Lab: [facility] [address] [facility] [address] Performing Lab: [facility] [address] [facility] [address] [facility] UA (C&S If indicated ) - IRIS MUCUS [#/AREA] IN URINE SEDIMENT BY MICROSCOPY HIGH POWER FIELD ABUNDANT /[HPF] 07/01 Specimen Type: URINE RANDOM No comment entered. Ordering Provider: DIANNE REARDON Report Released Date/Time: Jul 01, 2023 09:22 AM Reporting Lab: [facility] [address] [facility] [address] Performing Lab: [facility] [address] [facility] [address] [facility] UA (C&S If indicated ) - IRIS ASCORBATE [PRESENCE] IN URINE NEGATIVE 07/01 Specimen Type: URINE RANDOM No comment entered. Ordering Provider: DIANNE REARDON P Report Released Date/Time: Jul 01, 2023 09:22 AM Reporting Lab: [facility] [address] [facility] [address] Performing Lab: [facility] [address] [facility] [address] [facility] URINE ALBUMIN/C REATININE RATIO PANEL CREATININE [MASS/VOLUM E] IN URINE 95.9 mg/dL 07/01 Specimen Type: URINE RANDOM No comment entered. Ordering Provider: DIANNE REARDON P Report Released Date/Time: Jul 01, 2023 09:22 AM Reporting Lab: [facility] [address] [facility] [address] Performing Lab: [facility] [address] [facility] [address] [facility] URINE ALBUMIN/C REATININE RATIO PANEL ALBUMIN [MASS/VOLUM E] IN URINE 1.7 mg/dL 0 - 1.9 07/01 Specimen Type: URINE RANDOM No comment entered. Ordering Provider: DIANNE REARDON Report Released Date/Time: Jul 01, 2023 09:22 AM Reporting Lab: [facility] [address] [facility] [address] Performing Lab: [facility] [address] [facility] [address] [facility] URINE ALBUMIN/C REATININE RATIO PANEL ALBUMIN/CRE ATININE [MASS RATIO] IN URINE 17.7 mg/g{cre at} 0 - 30 07/01 Specimen Type: URINE RANDOM No comment entered. Ordering Provider: DIANNE REARDON Report Released Date/Time: Jul 01, 2023 09:22 AM Reporting Lab: [facility] [address] [facility] [address] Performing Lab: [facility] [address] [facility] [address] [facility] VITAMIN D,25-OH,T OTAL 25-HYDROXYV ITAMIN D3 [MASS/VOLUM E] IN SERUM OR PLASMA 39.54 ng/mL 30 - 100 07/01 Specimen Type: SERUM No comment entered. Ordering Provider: DIANNE REARDON Report Released Date/Time: Jul 01, 2023 09:22 AM Reporting Lab: [facility] [address] [facility] [address] Performing Lab: [facility] [address] [facility] [address] [facility] Encounters Combined list of: 1) Encounters from Department of Veterans Affairs facilities going backup to the last 18 months, not all VA inpatient encounters are included; 2) Encounters from the Department of Defense facilities going backup to 280 months. Location Location Details Encounter Type Encounter Number Reason For Visit Attending Provider ADM Date DC Date Status Disposition Source [facility] Outpatient Encounter [id number] 06/25 [facility] Outpatient Encounter [id number] CHEMA REARDON 07[facility]01 [facility] Outpatient Encounter [id number] 07/03 [facility] OFFICE O/P EST LOW 20 MIN [id number] Diagnos is: ICD-10- CM 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 unspeci fied complic atCHEMA Nunn P 07/03 [facility] Encounter [id number] JOSSIE CHICAS B 07/03 [facility] Outpatient Encounter [id number] 12/01 [facility] Outpatient Encounter [id number] 07/08 [facility] Outpatient Encounter [id number] 07/09 [facility] Outpatient Encounter [id number] 07/21 [facility] Social History Combined list of available smoking, tobacco, and other social history from Department of Defense and Veterans Affairs facilities. Social History Type Response Date Comment Sour e Tobacco smoking status SDIS VA-TOBACCO FORMER USER 07/04/2023 [facility] History of tobacco use VA-TOBACCO QUIT 15 YRS OR MORE 07/04/2023 [facility] History of tobacco use VA-TOBACCO FORMER USER [...] Care List of future care activities from [facility] facilities. Additional future care activities may be listed in the Assessment and Plan section. Date/Time Care Activity Care Activity Detail Facili ty 07/03/2024 Laboratory - Chemistry Order COM PREHENSIVE METABOLIC (CHEM 13) BLOOD-GOLD SERUM SP ONCE [facility]
--- OUTSIDE RECORDS SUMMARY | 2024-08-21 17:05 | XMS_ITS | Encounter Summary ---
Author Organization [facility] Address [address] [facility] [place] [address] Care Team Providers Care Winding Machine Operator Name Role Phone Bakari Brooks M.D., M.D. Primary Care Prov ider -[phone] Encounter Details Date Type Department Care Team (Late st Contact Info) Description 01/24/2024 Orders Only [facility] E-VISITS ADMIN DEPT [address] [place] [address] Scal E-Visit, Provider (Rianna), Rianna [address] [place] [address] VACCINATION FOR SARS-COV-2 Social History Tobacco Use Types Packs/Day Years Used Date Smoking Tobacco: Former Cigarettes Q uit: 03/25/1979 Passive Smoke Exposure: Past Smokeless Tobacco: Never Alcohol Use Standard Drinks/Week Comments Yes 1 (1 standard drink = 0.6 oz pur e alcohol) 3OZ/WEEK PHQ-2 Answer Date Recorded 1. Little interest or pleasure in doing things 0 - Not at all 11/12/2023 Substance Use Types Use/Week Comments No Sex and Gender Information Value Date Recorded Sex Assigned at Not on file Gender Identity Not on file Sexual Orientation Not on file documented as of this encounter Plan of Treatment Upcoming Encounters Date Type Department Care Team (Late st Contact Info) Description 09/22/2024 10:30 AM PDT Office Visit HEMATOLOGY/ONCOLOGY [address] [place] [phone] Adonis Pantoja), Rianna [address] [place] [phone] documented as of this encounter Visit Diagnoses Diagnosis VACCINATION FOR SARS-COV-2 documented in this encounter Care Teams Winding Machine Operator Relationship Specialty Start Date End Date Bakari Brooks M.D., M.D. [address] [place] [address] [phone] (Work) [phone] (Fax) PCP - General Family Practice 04/06/11 documented as of this encounter
--- OUTSIDE RECORDS SUMMARY | 2024-08-21 17:05 | XMS_ITS | Clinical Summary ---
Author Organization [facility] Address [address] [place] [address] Care Team Providers Care Tug Master Name Role Phone Pcp, No Primary Care Provider Unavailabl e Allergies No known active allergies Medications allopurinol (ZYLOPRIM) 100 mg tablet Take 100 mg by mouth once daily. 09/09/2018 Active atenolol (TENORMIN) 25 mg tablet Take 25 mg by mouth once daily. 09/09/2018 Active atorvastatin (LIPITOR) 20 mg tablet Take 20 mg by mouth once daily. 03/06/2018 Active potassium chloride (MICRO-K) 10 mEq Controlled-relea se capsule Take 10 mEq by mouth once daily. 10/23/2018 Active lisinopril (PRINIVIL; ZESTRIL) 2.5 mg tablet Take 2.5 mg by mouth once daily. 09/09/2018 Active pantoprazole (PROTONIX) 40 mg delayed-release tablet Take 40 mg by mouth once daily. 09/09/2018 Active triamterene-hydr ochlorothiazide, as half 75-50 mg, (MAXZIDE) 37.5-25 mg tab Take 25 mg by mouth once daily. 09/09/2018 Active potassium chloride (K-RADHA) 20 mEq packetIndication s:Hypokalemia Take 1 Packet by mouth once daily with a meal. 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 Diverticulosis of colon 05/05/2011 Essential hypertension 04/19/2011 GERD (gastroesophageal reflux disease) 2 Gout 04/19/2011 Hyperlipidemia 04/19/2011 Other specified postprocedural states 04/19/2011 Social History Tobacco Use Types Packs/Day Years Used Date Smoking Tobacco: Never Smokeless Tobacco: Never Tobacco Cessation:Counseling Given: Yes Alcohol Use Standard Drinks/Week Comments Never 0 (1 standard drink = 0.6 oz pur e alcohol) Sex and Gender Information Value Date Recorded Sex Assigned at Not on file Legal Sex Male 10:38 AM CDT Gender Identity Not on file Sexual Orientation Not on file Obstetrics History Last Filed Vital Signs Vital Sign Reading Time Taken Comments Blood Pressure 114/68 11/15/2018 11:47 AM CDT Pulse 75 11/15/2018 11:47 AM CDT Temperature 36.9 C (98.4 F) 11/15/2018 11:47 AM CDT Respiratory Rate - - Oxygen Saturation 97% 11/15/2018 11:47 AM CDT Inhaled Oxygen Concentration - - Weight 92.8 kg (204 lb 9.6 oz) 11/15/2018 11:47 AM CDT Height 180.8 cm (5' 11.18) 11/15/2018 11:47 AM CDT Body Mass Index 28.39 11/15/2018 11:47 AM CDT Plan of Treatment Health Maintenance Due Date Last Done Comments Tdap 1952 Depression screening for age 12+ 1953 Tetanus booster 1961 Pneumococcal series for age 50+ (1 of 1 - PCV) 09/21/1991 Zoster (shingles) series for age 50+ (1 of 2) 09/21/1991 RSV vaccine for adults or (1 - 1-dose 75+ series) 2016 BMI (ht and wt on same day) for age 18+ 11/16/2019 11/15/2018 COVID-19 vaccine series (1 - 2023- season) 2023 Influenza Vaccine (Season Ended) 2024 Hepatitis B series for 19+ Aged Out N o longer eligible based on patient's age to complete this topic Insurance MEDICARE PFFS MR Care Teams Tug Master Relationship Specialty Start Date End Date Pcp, Josephine Morel PCP - General 11/15/18
--- OUTSIDE RECORDS SUMMARY | 2024-08-21 17:05 | XMS_ITS | Clinical Summary ---
Author Organization [facility] Address [address] [place] [address] Care Team Providers Care Shoulder Sawyer Name Role Phone Unavailable Primary Care Provider Unavailabl e Source Comments Patient records contain information from all sites at [facility]. For routine questions regarding patient records, call [phone] during business hours, M-F 8:00 AM - 5:00 PM Central Time. Record requests for emergency care only can be directed to [phone] at any time.[facility] Allergies No known active allergies Medications aspirin [address] tablet Take 81 mg by mouth daily. Active allopurinoL (Zyloprim) 100 mg tablet Take 100 mg by mouth daily. Active atorvastatin calcium (ATORVASTATIN ORAL) Take by mouth. Active ATENOLOL ORAL Take by mouth. Active acetaminophen (TylenoL) 500 mg tablet Take 1,000 mg by mouth every 6 (six) hours as needed for pain. Active HYDROCHLOROTHIA ZIDE ORAL Take by mouth. Active lisinopriL 2.5 mg tablet Take 2.5 mg by mouth daily. Active metoclopramide (Reglan) 10 mg tablet Take 10 mg by mouth 4 (four) times a day as needed. Active pantoprazole (Protonix) [address] for susp in packet DR granules 40 mg daily before morning meal. Active Active Problems Problem Noted Date Diagnosed Date Lesion Bone 10/03/2023 Overview (10/03/2023): 1. Presentation 09/19/2023 Presented to ER with radiating left flank pain. 09/19/2023 MRI Lumbar spine - multiple suspicious osseous lesions involving T12 vertebral body, right S1 sacral ala, and right ilium. Suspicious for metastatic disease. no pathologic fracture - also scattered spondylosis with low-grade neural foraminal narrowing. No spinal canal stenosis. 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 2. Critical Imaging / Workup 09/24/2023 CT c/a/p - right hilar lymph node measures 2.3 x 1.4 cm. RUL pulmonary nodule measures 8x4mm. RLL medial subpleural nodules measures 7.5mm. Left Lung nodule measures 8mm. Many other tiny nodules bilaterally. - sclerotic bony lesions T5 vertebral body, T12, right S1, right inferior pubic bone, medial right iliac bone, posterior right femur - soft tissue fullness and enhancement of posterior left prostate spanning 3 cm. - no other lesions concerning for metastatic disease. 09/27/2023 Critical Labs - CBC unremarkable - CMP significant for alk-phos 193. - CEA unremarkable at 1.5. - PSA 248 Social History Tobacco Use Types Packs/Day Years Used Date Smoking Tobacco: Former Cigarettes Smokeless Tobacco: Never Tobacco Cessation:Counseling Given: Not Answered Dental Answer Date Recorded Dental: Regular Dentist Unknown 10/03/19 Sex and Gender Information Value Date Recorded Sex Assigned at Not on file Legal Sex Male 10:02 AM CDT Gender Identity Not on file Sexual Orientation Not on file Last Filed Vital Signs Vital Sign Reading Time Taken Comments Blood Pressure 129/63 10/11/2023 10:57 AM CDT Pulse 62 10/11/2023 10:57 AM CDT Temperature 36.7 C (98.1 F) 10/11/2023 9:57 AM CDT Respiratory Rate 17 10/11/2023 10:57 AM CDT Oxygen Saturation 92% 10/11/2023 10:57 AM CDT Inhaled Oxygen Concentration - - Weight - - Height - - Body Mass Index - - Plan of Treatment Health Maintenance Due Date Last Done Comments RSV vaccine - (32-36 weeks) or 60+ years (1 - 1-dose 75+ series) 2016 Creatinine Level (Kidney Function Test) 11/16/2019 11/15/2018 Potassium Level 11/16/2019 11/15/2018 Sodium Level 11/16/2019 11/15/2018 COVID-19 Vaccine ( season) 2023 08/01/2021, 03/01/2021, 05/10/2020, Additional history exists Depression Screening (Annual PHQ-2) 03/25/2024 Fall Risk Screen (Annual) 03/25/2024 DTaP,Tdap,and Td Vaccines (2 - Td or Tdap) 03/20/2029 03/20/2019, 08/23/2012 Pneumococcal vaccine (50+ years) Completed 08/24/2014, 04/25/2011, 04/19/2011 Zoster Vaccines Completed 12/09/2018, 06/12/2018 Influenza Vaccine Completed 12/02/2023, , 11/23/2021, Additional history exists IPV Vaccines Aged Out No longer eligi ble based on patient's age to complete this topic Insurance [facility]
--- OUTSIDE RECORDS SUMMARY | 2024-08-21 17:05 | XMS_ITS | Encounter Summary ---
Author Organization [facility] Address [address] [facility] [place] [address] Care Team Providers Care First Officer Name Role Phone Bakari Brooks) MRoverto. Primary Care Prov ider -[phone] Encounter Details Date Type Department Care Team (Late st Contact Info) Description 08/28/2021 Refill FAMILY PRACTICE [address] [place] [address] Bakari Brooks), M.D. [address] [place] [address] Medications Social History Tobacco Use Types Packs/Day Years Used Date Smoking Tobacco: Former Cigarettes Q uit: 03/25/1979 Smokeless Tobacco: Never Alcohol Use Standard Drinks/Week Comments Yes 1 (1 standard drink = 0.6 oz pur e alcohol) 3OZ/WEEK Substance Use Types Use/Week Comments No Sex and Gender Information Value Date Recorded Sex Assigned at Not on file Gender Identity Not on file Sexual Orientation Not on file documented as of this encounter Plan of Treatment Upcoming Encounters Date Type Department Care Team (Late st Contact Info) Description 09/22/2024 10:30 AM PDT Office Visit HEMATOLOGY/ONCOLOGY [address] [place] [phone] Adonis Pantoja)Jean. [address] [place] [phone] documented as of this encounter Visit Diagnoses Diagnosis GOUT documented in this encounter Care Teams First Officer Relationship Specialty Start Date End Date Bakari Brooks M.D., M.D. [address] [place] [address] [phone] (Work) [phone] (Fax) PCP - General Family Practice 04/06/11 documented as of this encounter
--- OUTSIDE RECORDS SUMMARY | 2024-08-21 17:05 | XMS_ITS | Encounter Summary ---
Author Organization [facility] Address [address] [facility] [address] Care Team Providers Care Lathe Puller Name Role Phone Bakari Brooks M.D., M.D. Primary Care Prov ider -[phone] Encounter Details Date Type Department Care Team (Late st Contact Info) Description 11/12/2023 Orders Only HEMATOLOGY/ONCOLOGY [address] [place] [address] Adonis Pantoja), Rianna [address] [place] [address] Social History Tobacco Use Types Packs/Day Years [...] 09/22/2024 10:30 AM PDT Office Visit HEMATOLOGY/ONCOLOGY [address] [place] [phone] Adonis Pantoja), Rianna [address] [place] [phone] documented as of this encounter Visit Diagnoses Not on filedocumented in this encounter Care Teams Lathe Puller Relationship Specialty Start Date End Date Bakari Brooks M.D., Jean. [address] [place] [address] [phone] (Work) [phone] (Fax) PCP - General Family Practice 04/06/11 documented as of this encounter
--- OUTSIDE RECORDS SUMMARY | 2024-08-21 17:05 | XMS_ITS | Encounter Summary ---
Author Organization [facility] Address [address] [facility] [place] [address] Care Team Providers Care Director Of Marketing Analytics Name Role Phone Bakari Brooks M.D., M.D. Primary Care Prov ider -[phone] Encounter Details Date Type Department Care Team (Late st Contact Info) Description 01/11/2021 Orders Only FAMILY MEDICINE CV19 VACCINE [address] [place] [address] Scal E-Visit, Provider (Rianna), Rianna [address] [place] [address] VACCINATION FOR SARS-COV-2 Social History Tobacco Use [...] 09/22/2024 10:30 AM PDT Office Visit HEMATOLOGY/ONCOLOGY [address] [place] [address] Adonis Pantoja), Rianna [address] [place] [phone] documented as of this encounter Visit Diagnoses Diagnosis VACCINATION FOR SARS-COV-2 documented in this encounter Care Teams Director Of Marketing Analytics Relationship Specialty Start Date End Date Bakari Brooks), MRoverto. [address] [place] [address] [phone] (Work) [phone]) PCP - General Family Practice 04/06/11 documented as of this encounter
--- OUTSIDE RECORDS SUMMARY | 2024-08-21 17:06 | XMS_ITS | Encounter Summary ---
Author Organization [facility] Address [address] [facility] [place] [address] Care Team Providers Care Credit Union Manager Name Role Phone Bakari Brooks) MRoverto. Primary Care Prov ider -[phone] Encounter Details Date Type Department Care Team (Late st Contact Info) Description 11/03/2021 Refill FAMILY PRACTICE [address] [place] [address] Bakari Brooks), M.D. [address] [place] [address] Medications Social History Tobacco Use [...] 09/22/2024 10:30 AM PDT Office Visit HEMATOLOGY/ONCOLOGY [address] [place] [address] Adonis Pantoja), Jean. [address] [place] [phone] documented as of this encounter Visit Diagnoses Diagnosis ESSENTIAL HTN HYPERLIPIDEMIA BPH (BENIGN PROSTATIC HYPERPLASIA) BPH (BENIGN PROSTATIC HYPERTROPHY) GERD (GASTROESOPHAGEAL REFLUX DISEASE) documented in this encounter Care Teams Credit Union Manager Relationship Specialty Start Date End Date Bakari Brooks), Jean. [address] [place] [address] -[phone] (Work) [phone] (Fax) PCP - General Family Practice 04/06/11 documented as of this encounter
--- OUTSIDE RECORDS SUMMARY | 2024-08-21 17:06 | XMS_ITS | Encounter Summary ---
Author Organization [facility] Address [address] [facility] [place] [address] Care Team Providers Care Home Health Assistant Name Role Phone Bakari Brooks M.D. MRoverto. Primary Care Prov ider -[phone] Reason for Visit * Reason Onset Date Comments PRESCRIPTION PROBLEM 04/04/2020 Encounter Details Date Type Department Care Team (Late st Contact Info) Description 04/04/2020 Telephone DEFAULT PHARMACY SERVICES [address] [place] [address] Gosia Jones (Pharm.D.), PHARM.D. [address] [place] [address] PRESCRIPTION PROBLEM Social History Tobacco Use Types Packs/Day Years [...] on file documented as of this encounter Progress Notes * Bakari Brooks), MRoverto. - 04/04/2020 11:39 AM PST I placed the refill. Thanks. * Gosia Jones (Pharm.[place]), PHARM.D. - 04/04/2020 11:[address] Brooks, Patient would like new order placed to pharmacy [facility] for Tamsulosin 0.4mg. [facility] Thank you, Gosia Jones, PharmD [facility] Tie Line [phone] 04/04/2020 11:24 AM documented in this encounter Plan of Treatment Upcoming Encounters Date Type Department Care Team (Late st Contact Info) Description 09/22/2024 10:30 AM PDT Office Visit HEMATOLOGY/ONCOLOGY [address] [place] [address] Adonis Pantoja M.D., M.D. [address] [place] [phone] documented as of this encounter Visit Diagnoses Diagnosis BPH (BENIGN PROSTATIC HYPERPLASIA) BPH (BENIGN PROSTATIC HYPERTROPHY) documented in this encounter Care Teams Home Health Assistant Relationship Specialty Start Date End Date aBkari Brooks M.D., M.D. [address] [place] [address] [phone] (Work) [phone] (Fax) PCP - General Family Practice 04/06/11 documented as of this encounter
--- OUTSIDE RECORDS SUMMARY | 2024-08-21 17:06 | XMS_ITS | Encounter Summary ---
Author Organization [facility] Address [address] [facility] [place] [address] Care Team Providers Care Correction Lieutenant Name Role Phone Bakari Brooks) MRoverto. Primary Care Prov ider -[phone] Encounter Details Date Type Department Care Team (Late st Contact Info) Description 02/13/2022 Refill FAMILY PRACTICE [address] [place] [address] Bakari Brooks), M.D. [address] [place] [address] Medications Social History Tobacco Use [...] 09/22/2024 10:30 AM PDT Office Visit HEMATOLOGY/ONCOLOGY [address] [place] [phone] Adonis Pantoja)Rianna [address] [place] [phone] documented as of this encounter Visit Diagnoses Diagnosis ESSENTIAL HTN documented in this encounter Care Teams Correction Lieutenant Relationship Specialty Start Date End Date Bakari Brooks M.D., M.D. [address] [place] [address] -[phone] (Work) [phone]) PCP - General Family Practice 04/06/11 documented as of this encounter
--- OUTSIDE RECORDS SUMMARY | 2024-08-21 17:06 | XMS_ITS | Encounter Summary ---
Author Organization [facility] Address [address] [place] [place] [address] Care Team Providers Care Boat Hand Name Role Phone Bakari Brooks) Jean. Primary Care Prov ider -[phone] Reason for Visit * Reason Comments PHARMACY ORAL ONCOLOGY SERVICE Encounter Details Date Type Department Care Team (Late st Contact Info) Description 08/13/2024 Telephone ONCOLOGY PHARMACY [facility] [address] [place] [address] Antonia Toussaint ([facility]), [facility] [address] [place] [address] PHARMACY ORAL ONCOLOGY SERVICE Social History Tobacco Use Types Packs/Day Years [...] as of this encounter Progress Notes * Usha Ring (Pharm.D), PHARM.D. - 08/20/2024 12:03 PM PDT National Oncology Oral Chemotherapy Management Assessment/Plan notes: 08/20/24: LMTCB to update if able to do labs in [place]. Oral chemo follow up date: 08/27/24 Oral chemo follow up date comment: Pt able to get labs done while in [place]? * Antonia Toussaint ([facility]), [facility] - 08/13/2024 3:36 PM PDT National Oncology Oral Chemotherapy Management Type of Oral Chemo Visit: (enc): Follow up [facility] (pat): Indication (pat): Prostate cancer Oncologist (pat): Dr. Pantoja Compendia/Formulary review (Pat): Yes Financial barrier review (pat): Yes Best # for pharmacist appointment (pat): Work HIPAA Authorized Him Coder(s) (pat): Spouse ok for information Okay to leave detailed message (pat): Yes [email or web address] (pat): Yes Preferred Pharmacy (pat): [facility] Special requests (delivery, other) (pat): Cop[facility] $5483.59 Subjective/Objective Spoke with (enc): Patient Subjective/Objective additional documention (pat): CURRENT DOSE: Abiraterone(1000mg PO) Prednisone 5mg daily Dosing History: Treatment Parameters Lab Parameters To Assess: Total Bili less than 1.5 times ULN; AST less than or equal to 2.5 times ULN; ALT less than or equalto 2.5 times ULN Labs Before Each Treatment: Total Bili, AST, ALT, K, Phosphorus Intermittent Labs: Total Bili, AST, and ALT every 2 weeks for the first 3 months, then monthly. For patients with baseline moderate hepatic impairment (Child-Claire class B): Total Bili, AST, and ALT every week for the first month, then every 2 weeks for the next 2 months, then monthly. For patients who resume treatment after hepatotoxicity has resolved to safe levels: Total Bili, ALT, and AST every 2 weeks for 3 months, then monthly. Medication Therapy Assessment/Plan Medication Conversions (enc) Assessment/Plan notes: 08/13/24 1) Labs not yet done. Spoke to pt, says they are in [place] and wont be back until September 22 2) Advised pt to contact [facility] to see which location would be best to get lab work done in [place] 3) F/up 1 week to see if pt was able to get blood work done. If not, can check with Dr. Pantoja if ok togo without labs until pt returns. Pt has MD appt 09/22/24 07/16/2024 Called and left voice message (1) Continue zytiga and prednisone (2) Increase to KCL 40meq BID x2 days and then return to 20meq daily. If pt has not been taking 20meq daily, then call back for new instructions. (3) Next lab in 4 weeks on 08/1206/17/2024 Spoke to patient 1) Labs within parameters to Cont Zytiga/Pred 2) Cont. Kcl 20 meq daily. Pt is still taking abx for UTI but UTI sxs has improved significantly 3) Next labs in 4 weeks 07/14/24 4) Dr. Pantoja last appointment 05/21/24, RTC 3 months LFTS q2w x 3 months (until 06/24/24) ; then monthly. Oral chemo follow up date: 08/20/24 Oral chemo follow up date comment: Pt able to get labs done while in [place]? ANTONIA TOUSSAINT [facility] Clinical Pharmacist Hematology/Oncology Department [facility] 08/13/2024 documented in this encounter Plan of Treatment Upcoming Encounters Date Type Department Care Team (Late st Contact Info) Description 09/22/2024 10:30 AM PDT Office Visit HEMATOLOGY/[place] [address] Adonis Pantoja), [address] [address] [place] [address] documented as of this encounter Visit Diagnoses Not on filedocumented in this encounter Care Teams Boat Hand Relationship Specialty Start Date End Date Bakari Brooks M.D., Jean. [address] [place] [address] [phone] (Work) [phone] (Fax) PCP - General Family Practice 04/06/11 documented as of this encounter
--- OUTSIDE RECORDS SUMMARY | 2024-08-21 17:06 | XMS_ITS | Encounter Summary ---
Author Organization [facility] Address [address] [address] Care Team Providers Care Rural Carrier Name Role Phone Bakari Brooks) MRoverto. Primary Care Prov ider -[phone] Encounter Details Date Type Department Care Team (Late st Contact Info) Description 07/09/2024 Refill FAMILY PRACTICE [address] [place] [address] Bakari Brooks), M.D. [address] [place] [address] Medications Social History Tobacco Use [...] 09/22/2024 10:30 AM PDT Office Visit HEMATOLOGY/ONCOLOGY [address] [place] [id number] Adonis Pantoja), MRoverto. [address] [place] [phone] documented as of this encounter Visit Diagnoses Diagnosis ESSENTIAL HTN BPH (BENIGN PROSTATIC HYPERPLASIA) BPH (BENIGN PROSTATIC HYPERTROPHY) documented in this encounter Care Teams Rural Carrier Relationship Specialty Start Date End Date Bakari Brooks), Jean. [address] [place] [address] [phone] (Work) [phone] (Fax) PCP - General Family Practice 04/06/11 documented as of this encounter
--- OUTSIDE RECORDS SUMMARY | 2024-08-21 17:06 | XMS_ITS | Clinical Summary ---
Author Organization [facility] Address [address] [place] [address] Care Team Providers Care E Marketing Specialist Name Role Phone Bakari Brooks M.D., M.D. Primary Care Prov ider [phone] Source Comments NOTE: The information displayed by Care Everywhere is extracted from the complete medical record and may not identify all current or past patient conditions.[facility] Allergies Active Allergy Reactions Criticality Noted Date Comments No Known Drug Allergies 04/03/2024 Medications Medication Sig Dispensed Refills Start Date End Date Status Aspirin (ECOTRIN LOW STRENGTH) 81 mg Oral TBEC TabIndications:AFT ERCARE FOLLOWING HOSPITALIZATION,NO NTRAUMATIC ACUTE KIDNEY INJURY,ESSENTIAL HTN Take 1 tablet by mouth daily 100 tablet 1 12/18/2023 12/17/2025 Active hydroCHLOROthiazid e (ESIDRIX/HYDRODIUR IL) 25 mg Oral TabIndications:ESS ENTIAL HTN Take 2 tablets by mouth daily 200 tablet 3 12/27/2023 12/26/2025 Active Allopurinol (ZYLOPRIM) 100 mg Oral TabIndications:GOU T Take 1 and one-half tablets by mouth daily 150 tablet 3 01/01/2024 12/31/2025 Active predniSONE (DELTASONE) 5 mg Oral TabIndications: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,CANCER METASTATIC TO BONE Take 1 tablet by mouth daily 100 tablet 2 03/19/2024 03/19/2026 Active Abiraterone (ZYTIGA) 250 mg Oral TabIndications: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,CANCER METASTATIC TO BONE Take 4 tablets by mouth daily on an empty stomach, either 1 hour before or 2 hours after a meal 120 tablet 3 03/19/2024 03/19/2026 Active Potassium Chloride (K-TAB/KLOR-CON) 10 mEq Oral SR TabIndications:ESS ENTIAL HTN Take 2 tablets by mouth daily 200 tablet 2 04/15/2024 04/15/2026 Active Pantoprazole (PROTONIX) [address] TabIndications:CHRIS D (GASTROESOPHAGEAL REFLUX DISEASE) Take 2 tablets by mouth daily 100 tablet 3 04/16/2024 04/16/2026 Active Simvastatin (ZOCOR) 20 mg Oral TabIndications:HYP ERLIPIDEMIA Take 1 tablet by mouth every evening to reduce risk of heart attacks and strokes 100 tablet 3 04/17/2024 04/17/2026 Active Amoxicillin 500 mg Oral Cap Take 1 capsule by mouth every 8 hours until finish 30 capsule 05/13/2024 05/13/2026 Active Amoxicillin 500 mg Oral Cap Take 1 capsule by mouth 3 times a day 21 capsule 06/02/2024 06/02/2026 Active Ofloxacin (OCUFLOX) 0.3 % Opht DropIndications:NM EOP EXAM Instill 1 Drop in affected eye(s) 4 times a day Start 1 day BEFORE surgery and continue for 7 days 5 mL 1 06/09/2024 06/09/2026 Active Ketorolac (ACULAR) 0.5 % Opht DropIndications:NM EOP EXAM Instill 1 Drop in both eyes 4 times a day Start after surgery and finish the bottle 10 mL 06/09/2024 06/09/2026 Active prednisoLONE Acetate (PRED FORTE) 1 % Opht Susp DropsIndications:P REOP EXAM Instill 1 Drop in both eyes 4 times a day START AFTER SURGERY AND TAPER OFF OVER 5 WEEKS DIRECTED 15 mL 1 06/09/2024 06/09/2026 Active Abiraterone (ZYTIGA) 250 mg Oral TabIndications:CAN CER METASTATIC TO BONE,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 Take 4 tablets by mouth daily on an empty stomach, either 1 hour before or 2 hours after a meal 120 tablet 5 06/17/2024 06/17/2025 Active Atenolol (TENORMIN) 25 mg Oral TabIndications:ESS ENTIAL HTN Take 2 tablets by mouth daily 200 tablet 07/09/2024 Active Tamsulosin (FLOMAX) 0.4 mg Oral CapIndications:BPH (BENIGN PROSTATIC HYPERPLASIA) Take 1 capsule by mouth daily 100 capsule 07/09/2024 Active Mupirocin (CENTANY) 2 % Top OintIndications:RA SH Apply to affected area(s) 2 times a day 22 g 1 08/13/2022 08/12/2024 Hospital, Clinic, or Other Facility Administered Medication Ordered Dose Route Frequency Start Date End Date Status Leuprolide (3 Month) Inj Kit 22.5 mg (LUPRON DEPOT 3 MONTH)Indications: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,CANCER METASTATIC TO BONE 22.5 mg IM Every 3 Months 11/12/2023 11/08/2026 Active Propofol IV Soln (DIPRIVAN)Indications: PREOP EXAM,HX OF CHOLELITHIASIS 600 mg IV CONTINUOUS 02/24/2024 Active Lactated Ringers IV PremixIndications:PREO P EXAM,HX OF CHOLELITHIASIS 75 mL/hr IV CONTINUOUS 02/24/2024 Active Active Problems Problem Noted Date Diagnosed Date HYPERLIPIDEMIA 04/03/2024 EMPHYSEMA 01/04/2024 ELEVATED TRANSAMINASE 12/09/2023 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 Presentation 09/19/2023 Presented to ER with [...] CEA unremarkable at 1.5. 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 05/01/2011 COLORECTAL CANCER SCREENING COUNSELING, DISCUSSION ONLY 05/01/2011 05/05/2011 Encounters Date Type Department Care Team Description 08/13/2024 Telephone ONCOLOGY PHARMACY [address]L [address] [place] [address] Ilsa Wang ([facility]), [facility] ORAL ONCOLOGY SERVICE 07/16/2024 Telephone DEFAULT PHARMACY [address]IME [address] [address] [place] [address] Ghada Harmon (Pharm.DMaria Teresa), PHARM.D. PHARMACY ORAL ONCOLOGY SERVICE 07/09/2024 Refill [facility] [address] [place] [address] Bakari Brooks), MRoverto. Medications 06/30/2024 2:10 PM PDT Office Visit OPHTHALMOLOGY [address] [place] [phone] Lanette Harman), MNewton AFTERCARE FOLLOWING CATARACT SURGERY WITH INTRAOCULAR LENS REPLACEMENT 06/24/2024 10:10 AM PDT Office Visit OPHTHALMOLOGY [address] [place] [phone] Lanette Harman), MNewton AFTERCARE FOLLOWING CATARACT SURGERY WITH INTRAOCULAR LENS REPLACEMENT 06/23/2024 11:59 PM PDT Anesthesia Event SDA1 [address] [place] [address] Josias Gardiner), Rianna 06/23/2024 3:45 PM PDT Surgery SDA1 [address] [place] [address] Lanette Harman)Jean. CATARACT SURGERY BILATERAL INTRAOCULAR LENS-PHACO 06/23/2024 2:22 PM PDT - 06/23/2024 4:22 PM PDT Hospital Encounter SDA1 [address] [place] [address] Lanette Harman), Rianna BILAT CATARACT Discharge Disposition: Home or Self Care. 06/17/2024 Telephone DEFAULT PHARMACY [address] [address] [place] [address] Salas Gaston (Pharm.D), PHARM.D. PHARMACY ONCOLOGY SERVICE; PHARMACY ORAL ONCOLOGY SERVICE 06/13/2024 8:55 AM PDT - 06/13/2024 11:59 PM PDT Hospital Encounter LABORATORY MAIN [address] [address] [place] [address] Bj Cash)Rianna UTI (URINARY TRACT INFECTION) Discharge Disposition: Home or Self Care. 06/12/2024 8:10 PM PDT Telephone Appointment Visit [facility] [address] [address] [place] [phone] Bj Cash)Rianna UTI (URINARY TRACT INFECTION) 06/12/2024 Call Center Telephone Encounter [facility]ILY [facility] [address] [place] [phone] Bakari Brooks), MNewton MEDICAL PROBLEMS (URINARY TRACT INFECTION) 06/09/2024 3:10 PM PDT Office Visit OPHTHALMOLOGY [address] [place] [address] Lanette Harman), Rianna PREOP EXAM 06/03/2024 Telephone DEFAULT PHARMACY [address] [address] [place] [address] Manisha Moya (Pharm.D), PHARM.D. PHARMACY ORAL ONCOLOGY SERVICE 06/02/2024 Orders Only [facility]ARE [address] [place] [phone] Bakari Brooks), MRoverto. DM 2 WO COMPLICATIONS 05/26/2024 1:04 PM PST - 05/26/2024 11:59 PM PST Hospital Encounter [facility] [address] [address] [place] [address] Discharge Disposition: Home or Self Care. 05/26/2024 Telephone DEFAULT PHARMACY [address] [address] [place] [address] Nighat Seo (Pharm.D), PHARM.D. PHARMACY ORAL ONCOLOGY SERVICE 05/26/2024 Orders Only [facility]PLETE [facility]ARE [address] [place] [phone] Bakari Brooks), MRoverto. DM 2 WO COMPLICATIONS from Last 3 Months Immunizations Name Administration Dates Next Due COVID-19 mRNA LNP-S, PF (MOD HAWA),50 MCG/0.25 mL 08/01/2021,03/01/2021 COVID-19 mRNA LNP-S, PF (Moderna) 05/10/2020,05/12/2020 INF (Influenza) unspecified formulation 11/23/2021,12/23/2014,11/23/2013,02/22,05/24/2011,01/23/2011,12/23/2010 INFS 6mos-adult (Flulaval quadrivalent) (influenza) 12/26/2017 INFS pres free 65 yrs and ov er high dose (Fluzone quadrivalent 01/11/2023,12/29/2020,12/24/2019 INFS pres free 65 yrs and ov er high dose (Fluzone trivalent) (influenza) 12/02/2023 INFS pres free 6mos-adult (F luarix quadrivalent) (influenza) 11/16/2021,12/09/2018,12/13/2015 INFS pres free, trivalent (influenza) seasonal unspecified 01/24/2016 INFs (Influenza split virus ). 01/03/2012 INFs 4yrs and over (FLUVIRIN ) (Influenza) 02/15/2015,02/09/2014,01/01/2013 PCV13 ([id number]) (Pneumococ joey conjugate, 13 valent) 08/24/2014 PNU (Pneumococcal, pneumonia ) 04/25/2011 PPSV23 (Pneumococcal polysaccharide) 04/19/2011 Td adult (Tetanus, diphtheri a toxoids) unspecified formulation 08/23/2012 Tdap (ADACEL) (Tetanus, diph theria, acellular pertussis) 03/20/2019 ZOS (Herpes zoster recombina nt) Shingrix 12/09/2018,06/12/2018 infs pres free 3yrs-adult (f lulaval quadrivalent) (influenza) 01/12/2017 Social History Tobacco Use Types Packs/Day Years Used Date Smoking Tobacco: Former Cigarettes Q uit: 03/25/1979 Passive Smoke Exposure: Past Smokeless Tobacco: Never Tobacco Cessation:Counseling Given: No Alcohol Use Standard Drinks/Week Comments Yes 1 [...] Sign Reading Time Taken Comments Blood Pressure 169/70 06/23/2024 4:05 PM PDT Pulse 51 06/23/2024 4:05 PM PDT Temperature 36.4 C (97.5 F) 06/23/2024 4:05 PM PDT Respiratory Rate 15 06/23/2024 4:05 PM PDT Oxygen Saturation 98% 06/23/2024 4:05 PM PDT Inhaled Oxygen Concentration - - Weight 93.1 kg (205 lb 4.8 oz) 06/23/2024 2:44 P M PDT Height 182.9 cm (6') 06/23/2024 2:44 PM PDT Body Mass Index 27.84 06/23/2024 2:44 PM PDT Plan of Treatment Upcoming Encounters Date Type Department Care Team (Late st Contact Info) Description 09/22/2024 10:30 AM PDT Office Visit HEMATOLOGY/ONCOLOGY [address] [place] [phone] Adonis Pantoja), Rianna [address] [place] [phone] Health Maintenance Due Date Last Done Comments IMM RSV (75 YRS AND OLDER) ( 1 - 1-dose 75+ series) 2016 IMM COVID-19 (6 MO AND OLDER ) (3 - Moderna risk series) 08/29/2021 08/01/2021, 03/01/2021, 05/10/2020, Additional history exists DIABETIC FOOT EXAM 04/16/2025 04/16/2024, 0 07/31/2023, 11/16/2021, Additional history exists IMM DTAP,TDAP,TD (42 DAYS-12 0 YRS) (3 - Td or Tdap) 03/20/2029 03/20/2019, 08/23/2012 IMM PNEUMOCOCCAL Completed 08/24/2014, 03/2011, 04/19/2011 IMM ZOSTER (19 YRS AND OLDER) Completed 12/09/2018, 06/12/2018 IMM INFLUENZA (6 MO AND OLDER) Completed 0 12/02/2023, 01/11/2023, 11/23/2021, Additional history exists Medical Devices Implanted Type Area Office Machines Wirer Device Identifier Shelf Expiration Date Model / Serial / Lot Lens Tecnis Eyehance Tecnis 1pc Clr [place] 23.0d - [id number] Implanted:Qt y: 1 on 06/23/2024 by Lanette Harman), Jean. Ophthalmology Right: Eye [employer] [id number] 04/10/2027 [id number] 30 / [id number] / Lens Tecnis Eyehance Tecnis 1pc Clr [place] 23.0d - [id number] Implanted:Qt y: 1 on 06/23/2024 by Lanette Harman)Jean. 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 METASTATIC TO BONE TESTOSTERONE Routine 08/04/2024 8:36 AM PDT 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 CANCER METASTATIC TO BONE CALCIUM STAT 07/15/2024 12:59 PM PDT CANCER METASTATIC TO BONE CREATININE STAT 07/15/2024 12:59 PM PDT CANCER METASTATIC TO BONE PHOSPHATE STAT 07/15/2024 12:59 PM PDT CANCER METASTATIC TO BONE 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 POTASSIUM STAT 07/15/2024 12:59 PM PDT CANCER METASTATIC TO BONE 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 LIVER FUNCTION PANEL (TBILI, ALT, ALKP) STAT 07/15/2024 12:59 PM PDT CANCER METASTATIC TO BONE 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 CATARACT SURGERY BILATERAL INTRAOCULAR LENS-PHACO 06/23/2024 3:45 PM PDT BILAT CATARACT POTASSIUM STAT 06/16/2024 9:50 AM PDT 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 PHOSPHATE STAT 06/16/2024 9:50 AM PDT 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 TESTOSTERONE Routine 06/16/2024 9:50 AM PDT 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 PSA STAT 06/16/2024 9:50 AM PDT 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 AST STAT 06/16/2024 9:50 AM PDT 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 LIVER FUNCTION PANEL (TBILI, ALT, ALKP) STAT 06/16/2024 9:50 AM PDT 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 URINALYSIS, MICROSCOPY Routine 06/13/2024 9:21 AM PDT URINALYSIS, AUTOMATED W REFLEX TO MICROSCOPY AND CULTURE Routine 06/13/2024 9:21 AM PDT UTI (URINARY TRACT INFECTION) URINE CULTURE Routine 06/13/2024 9:21 AM PDT ALBUMIN URINE Routine 06/02/2024 4:00 PM PDT DM 2 WO COMPLICATIONS AST STAT 06/02/2024 11:55 AM PDT 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 LIVER FUNCTION PANEL (TBILI, ALT, ALKP) STAT 06/02/2024 11:55 AM PDT 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 HEMOGLOBIN A1C, DIABETIC MONITORING Routine 06/02/2024 11:55 AM PDT DM 2 WO COMPLICATIONS DEXA BONE DENSITY APPENDICULAR SKELETON 1 OR MORE SITES Routine 05/26/2024 1:52 PM PST SCREENING FOR OSTEOPOROSIS DEXA BONE DENSITY HIP AND SPINE Routine 05/26/2024 1:52 PM PST SCREENING FOR OSTEOPOROSIS from Last 3 Months Results * (ABNORMAL) TESTOSTERONE (08/04/2024 8:36 AM PDT) Only the most recent of2 resultswithin the time period is included. TESTOSTERONE, TOTAL 6(L) 221 - 716 ng/dL [facility], CLINICAL PATHOLOGY [facility] Comment: Pediatric testosterone values should be interpreted in regards to both age and Stephen stage. Testosterone (ng/dL) Stephen Male Female Stage Low High Low High I 7 17 7 17 II 25 160 14 36 III 109 333 22 43 IV 211 639 20 40 V 364 996 27 46 BLOOD / Unknown 08/04/2024 8 :36 AM PDT Narrative [facility], CLINICAL PATHOLOGY [facility] - 08/04/2024 7:06 PM PDT [facility] ACCN: [id number] Adonis Pantoja M.D. ENDOCRINOLOGY Performing Organization Address City/State/[facility] Co de Phone Number [address] [address] * PSA (08/04/2024 8:36 AM PDT) Only the most recent of2 resultswithin the time period is included. PSA 4.2 <=6.5 ng/mL [facility] Comment: The determination that his age-related PSA is either normal or abnormal is valid only if this patient has never been treated for prostate cancer and is not on any medication that would change the PSA value. Clinical correlation is strongly recommended. This PSA assay is performed with the [employer]' Medical Physics Teacher i system analyzer, using chemiluminescent microparticle immunoassay (CMIA) technology, with flexible assay protocols, referred to as Chemiflex. BLOOD / Unknown 08/04/2024 8 :36 AM PDT Narrative [facility] - 08/04/2024 6:33 PM PDT [facility] ACCN: [id number] Adonis Pantoja M.D. ENDOCRINOLOGY Performing Organization Address [facility] de Phone Number [address] [address] * LIVER FUNCTION PANEL (TBILI, ALT, ALKP) (07/15/2024 12:59 PM PDT) Only the most recent of3 resultswithin the time period is included. ALT 18 <=63 U/L [facility] ALKALINE PHOSPHATASE 116 <=125 U/L [facility] BILIRUBIN, TOTAL 0.9 <=1.0 mg/dL [facility] BLOOD / Unknown 07/15/2024 1 2:59 PM PDT Narrative [facility] - 07/15/2024 7:21 PM PDT [facility] ACCN: [id number] Adonis Pantoja M.D. SERUM CHEMISTRY Performing Organization Address [facility] Co de Phone Number [facility] [address] [place] [address] * (ABNORMAL) POTASSIUM (07/15/2024 12:59 PM PDT) Only the most recent of2 resultswithin the time period is included. POTASSIUM 3.2(L) 3.5 - 5.0 mEq/L [facility] BLOOD / Unknown 07/15/2024 1 2:59 PM PDT Narrative [facility] - 07/15/2024 7:13 PM PDT [facility] ACCN: [id number] Adonis Vogel) Kit Blanca SERUM CHEMISTRY Performing Organization Address [facility] Co de Phone Number [facility] [address] [place] [address] * PHOSPHATE (07/15/2024 12:59 PM PDT) Only the most recent of2 resultswithin the time period is included. PHOSPHORUS 3.3 2.7 - 4.5 mg/dL [facility] BLOOD / Unknown 07/15/2024 1 2:59 PM PDT Narrative [facility] - 07/15/2024 7:13 PM PDT [facility] ACCN: [id number] Adonis Pantoja M.D. SERUM CHEMISTRY Performing Organization Address [facility]/ZIP Co de Phone Number [facility] [address] [place] [address] * CREATININE (07/15/2024 12:59 PM PDT) CREATININE 1.10 <=1.30 mg/dL [facility] EGFR, CREATININE-BASED FORMULA (CKD-EPI 2020) 67 >=60 mL/min/BS A [facility] Comment: GFR estimate is by the CKD-EPI 2020 equation which uses age, sex, and serum creatinine. GFR estimate is less reliable if on dialysis or if acute kidney injury. Additional advice for the provider is available in Renal Failure Risk Assessment below. CKD Categorization by GFR & ACR (urine Albumin/Creatinine Ratio) GFR >3 months ACR <30(A1) ACR 30-<300(A2) ACR 300+(A3) >=90 CKD1 A2 or * CKD1 A3 60-<90 CKD2 A2 or * CKD2 A3 45-<60 CKD3a A1 or * CKD3a A2 CKD3 A3 30-<45 CKD3b A1 CKD3b A2 CKD3 A3 15-<30 CKD4 A1 CKD4 A2 CKD4 A3 <15 CKD5 A1 CKD5 A2 CKD5 A3 * or may label a bnormal kidney function or p roteinuria as appropriate. BLOOD / Unknown 07/15/2024 1 2:59 PM PDT Narrative [facility] - 07/15/2024 7:04 PM PDT [facility] ACCN: [id number] Adonis Vogel) Kit Blanca SERUM CHEMISTRY Performing Organization Address City/[facility] de Phone Number [facility] [address] [place] [address] * CALCIUM (07/15/2024 12:59 PM PDT) CALCIUM 9.0 8.5 - 10.7 mg/dL [facility] BLOOD / Unknown 07/15/2024 1 2:59 PM PDT Narrative [facility] - 07/15/2024 7:04 PM PDT [facility] ACCN: [id number] Adonis Pantoja M.D. SERUM CHEMISTRY Performing Organization Address [facility] de Phone Number [facility] [address] [place] [address] * AST (06/16/2024 9:50 AM PDT) Only the most recent of2 resultswithin the time period is included. AST 19 <=34 U/L [facility] BLOOD / Unknown 06/16/2024 9 :50 AM PDT Narrative [facility] - 06/16/2024 1:37 PM PDT [facility] ACCN: [id number] OTHER PROVIDERS HAVE RECEIVED THIS RESULT DUE TO DUPLICATE ORDERS FOR THIS TEST. YOU MAY HAVE ORDERED THIS EXACT TEST OR ONE OF ITS COMPONENTS. THUS, COORDINATION OF CARE IS NECESSARY. CLICK ON THE ORDER DETAILS HYPERLINK FOR INDICATION OF ALL PROVIDERS WHO HAVE RECEIVED NOTIFICATION OF THIS RESULT. Adonis Pantoja M.D. SERUM CHEMISTRY Performing Organization Address [facility] Co de Phone Number [facility] [address] [place] [address] * (ABNORMAL) URINALYSIS, AUTOMATED W REFLEX TO MICROSCOPY AND CULTURE (06/13/2024 9:21 AM PDT) GLUCOSE, UA Negative Negative mg/dL [facility] KETONES, UA Negative Negative mg/dL [facility] SPECIFIC GRAVITY, UA 1.012 1.005 - 1.030 [facility] UA HGB >=1.00 (3+)(A) Negative mg/dL [facility] PH, UA 5.0 5.0 - 8.0 [facility] PROTEIN, UA Negative Negative mg/dL [facility] NITRITE, UA Negative Negative [facility] LEUKOCYTE ESTERASE, UA Positive(A) Negative [facility] UROBILINOGEN, UA, QL 2.0 (1+)(A) Negative mg/dL [facility] BILIRUBIN, UA Negative Negative mg/dL [facility] MICROSCOPIC EXAM, URINE To follow [facility] URINE 06/13/2024 9:21 AM PDT Narrative [facility] - 06/13/2024 9:26 AM PDT [facility] ACCN: [id number] Bj Cash M.D. URINALYSI S Performing Organization Address [facility] Co de Phone Number [facility] [address] [place] [address] * (ABNORMAL) URINALYSIS, MICROSCOPY (06/13/2024 9:21 AM PDT) WBC'S, UA/HPF >25(A) 0 - 5 /HPF [facility] RBC, URINE HPF >50(A) 0 - 3 /HPF [facility] BACTERIA, URINE HPF Many(A) None /HPF [facility] SQUAMOUS EPITHELIAL CELLS, URINE SED, AUTOMATED COUNT, QUAL None /HPF [facility] MUCUS, UR SED, QL, AUTOMATED COUNT Present /HPF [facility] URINE CULTURE RESULT To follow [facility] URINE 06/13/2024 9:21 AM PDT Narrative [facility] - 06/13/2024 9:51 AM PDT [facility] ACCN: [id number] Bj Cash M.D. URINALYSI S Performing Organization Address [facility] Co de Phone Number [facility] [address] [place] [address] * (ABNORMAL) URINE CULTURE (06/13/2024 9:21 AM PDT) FINAL RESULT >100,000 cfu/ml Klebsiella pneumoniae(A) [facility] CLINICAL [facility]OLOGY - [place] ORGANISM Klebsiella pneumoniae(A) [facility] - [place] URINE 06/13/2024 9:21 AM PDT Narrative [facility] [place] - 06/15/2024 4:32 PM PDT DAVID ACCN: [id number] Organism Antibiotic Method Susceptibility Klebsiella pneumoniae Ampicillin ANTIMICROBIAL SUSCEPTIBILITY >=32: RESISTANT Klebsiella pneumoniae Cefazolin urine ANTIMICROBIAL SUSCEPTIBILITY <=4: SUSCEPTIBLE Klebsiella pneumoniae Ceftriaxone ANTIMICROBIAL SUSCEPTIBILITY <=1: SUSCEPTIBLE Klebsiella pneumoniae Ciprofloxacin ANTIMICROBIAL SUSCEPTIBILITY <=0.25: SUSCEPTIBLE Klebsiella pneumoniae Gentamicin ANTIMICROBIAL SUSCEPTIBILITY <=1: SUSCEPTIBLE Klebsiella pneumoniae Nitrofurantoin ANTIMICROBIAL SUSCEPTIBILITY 64: INTERMEDIATE Comment:Nitrofuranto in should not be used for treatment of pyelonephritis. Klebsiella pneumoniae Piperacillin+Tazobacta m ANTIMICROBIAL SUSCEPTIBILITY <=4: SUSCEPTIBLE Klebsiella pneumoniae Trimethoprim+Sulfameth oxazole ANTIMICROBIAL SUSCEPTIBILITY <=20: SUSCEPTIBLE Bj Cash M.D. MICROBIOL OGY Performing Organization Address City/[facility]/ZIP Co de Phone Number [place] [facility] [address] [place] [address] * (ABNORMAL) ALBUMIN URINE (06/02/2024 4:00 PM PDT) ALBUMIN/CREATININE , URINE 13.8 <=29.9 mcg/mg Creat [facility] ALBUMIN, URINE, DETECTION LIMIT <= 20 MG/L 8.1 <=120.0 mg/L [facility] CREATININE, URINE 58.6(L) 63.0 - 166.0 mg/dL [facility] Comment: ACR (urine Albumin/Creatinine Ratio): <30 -> A1 normal; 30-<300 -> A2 moderately increased; >=300 -> A3 severely increased (with >= 2200 nephrotic range). A2 and A3 require 2nd value to confirm >2 weeks from first. Additional advice for the provider is available in Renal Failure Risk Assessment below. CKD Categorization by GFR & ACR (urine Albumin/Creatinine Ratio) GFR >3 months ACR <30(A1) ACR 30-<300(A2) ACR 300+(A3) >=90 CKD1 A2 or * CKD1 A3 60-<90 CKD2 A2 or * CKD2 A3 45-<60 CKD3a A1 or * CKD3a A2 CKD3 A3 30-<45 CKD3b A1 CKD3b A2 CKD3 A3 15-<30 CKD4 A1 CKD4 A2 CKD4 A3 <15 CKD5 A1 CKD5 A2 CKD5 A3 * or may label a bnormal kidney function or p roteinuria as appropriate. URINE 06/02/2024 4:00 PM PDT Narrative [facility] - 06/03/2024 3:54 AM PDT DAVID ACCN: [id number] Bakari Vogel) Cecilia Blanca URINE CHEM ISTRY [facility] [id number] [place] [address] * HEMOGLOBIN A1C, DIABETIC MONITORING (06/02/2024 11:55 AM PDT) HGBA1C% 6.1 4.6 - 7.9 % [facility] Comment: A less stringent goal of < 9.0% may be appropriate for an individual patient with a history of severe hypoglycemia, advanced microvascular or macrovascular complications, or extensive comorbid conditions. ESTIMATED AVERAGE GLUCOSE 128 mg/dL [facility] BLOOD / Unknown 06/02/2024 1 1:55 AM PDT Narrative [facility] - 06/02/2024 11:02 PM PDT DAVID ACCN: [id number] Bakari Vogel) Cecilia Blanca SERUM CHEM ISTRY [facility] [address] [place] [address] * DEXA BONE DENSITY HIP AND SPINE (05/26/2024 1:52 PM PST) Anatomical Region Laterality Modality Hip, Spine, Vertebra, Muscskel, Pelvis DEXA 05/26/2024 4:43 PM PST Narrative 05/26/2024 4:43 PM PST CLINICAL HISTORY: Reason: Screening exam DXA Haynes Findings: Combined results for accessions [id number] and [id number] Self Reported History / Risk Factors: History of Fracture (Adult), (C) HX Lupron, (M) FX after age 50 Lowest T_Score: -3.3 Region: Forearm RADIUS 33 Left Lowest Z_Score: -2.0 Region: Forearm RADIUS 33 Left FRAX - Ten year risk for hip fracture: N/A FRAX - Ten year risk for other major osteoporotic fracture: N/A BMD CHANGE from DXA on 03/31/19: -1.0% AP Spine L1_L4 -19.6% Femur NECK Left -12.6% Femur TOTAL HIP Left 24.2% Femur NECK Right 80.7% Femur TOTAL HIP Right See [facility] tab for the full report containing DXA result details Treatment Recommendations (Men and Women): All Patients: Calcium 1,200 mg/daily; vitamin D 1,000 IU/daily; Weight-bearing and muscle-building exercise; Dermatology Nurse to stop smoking. If lowest T-scores = -2.5; OR FRAX Hip score = 3% OR FRAX Major osteoporotic score = 20% First line treatment - Alendronate 70 mg once weekly (risedronate 35 mg once weekly if alendronate is not tolerated or contraindicated). Check serum calcium, creatinine and vitamin D 25-hydroxy. See Clinical Practice Guidelines Osteoporosis Management for the treatment of vitamin D deficiency. Second line treatment - See Clinical Practice Guidelines ?Osteoporosis Management? If lowest Z-score = -2.0, or if fracture occurs while on treatment, work up for secondary causes and consider referral to Endocrinology or Rheumatology. Suggested labs prior to referral: TSH; AM testosterone (men); ALT; creatinine; albumin; alkaline phosphatase; vitamin D 25-hydroxy; 24 hr urine for calcium/creatinine; parathyroid hormone; serum calcium WHO Criteria for Osteoporosis and low bone mass Normal = T-score of -1.0 or higher Low bone mass = T-score between -1.0 and -2.4 Osteoporosis = T-score -2.5 or lower Other Comments: This report electronically signed by Catia Mccoy on 05/26/2024 4:43 PM Procedure Note Catia Mccoy M.D., M.D. - 05/26/2024 CLINICAL HISTORY: Reason: Screening exam DXA Haynes Findings: Combined results for accessions [id number] and [id number] Self Reported History / Risk Factors: History of Fracture (Adult), (C) HXLupron, (M) FX after age 50 Lowest T_Score: -3.3 Region: Forearm RADIUS 33 Left Lowest Z_Score: -2.0 Region: Forearm RADIUS 33 Left FRAX - Ten year risk for hip fracture: N/A FRAX - Ten year risk for other major osteoporotic fracture: N/A BMD CHANGE from DXA on 03/31/19: -1.0% AP Spine L1_L4 -19.6% Femur NECK Left -12.6% Femur TOTAL HIP Left 24.2% Femur NECK Right 80.7% Femur TOTAL HIP Right See [facility] tab for the full report containing DXA resultdetails Treatment Recommendations (Men and Women): All Patients: Calcium 1,200 mg/daily; vitamin D 1,000 IU/daily;Weight-bearing and muscle-building exercise; Dermatology Nurse to stop smoking. If lowest T-scores = -2.5; OR FRAX Hip score = 3% OR FRAX Majorosteoporotic score = 20% First line treatment - Alendronate 70 mg once weekly (risedronate 35 mg once weekly ifalendronate is not tolerated or contraindicated). Check serum calcium,creatinine and vitamin D 25-hydroxy. See Clinical Practice Guidelines Osteoporosis Management for the treatmentof vitamin D deficiency. Second line treatment - See Clinical Practice Guidelines ?OsteoporosisManagement? If lowest Z-score = -2.0, or if fracture occurs while on treatment, workup for secondary causes and consider referral to Endocrinology orRheumatology. Suggested labs prior to referral: TSH; AM testosterone (men); ALT;creatinine; albumin; alkaline phosphatase; vitamin D 25-hydroxy; 24 hrurine for calcium/creatinine; parathyroid hormone; serum calcium WHO Criteria for Osteoporosis and low bone mass Normal = T-score of -1.0 or higher Low bone mass = T-score between -1.0 and -2.4 Osteoporosis = T-score -2.5 or lower Other Comments: This report electronically signed by Catia Mccoy on 05/26/2024 4:43 PM Bakari Vogel) Cecilia Blanca DEXA SCAN * DEXA BONE DENSITY APPENDICULAR SKELETON 1 OR MORE SITES (05/26/2024 1:52 PM PST) Anatomical Region Laterality Modality Upper Extremities, Muscskel DEXA 05/26/2024 4:42 PM PST Narrative 05/26/2024 4:42 PM PST CLINICAL HISTORY: PT takes lupron. DXA Haynes Findings: Combined results for accessions [id number] and [id number] Self Reported History / Risk Factors: History of Fracture (Adult), (C) HX Lupron, (M) FX after age 51 Lowest T_Score: -3.3 Region: Forearm RADIUS 33 Left Lowest Z_Score: -2.0 Region: Forearm RADIUS 33 Left FRAX - Ten year risk for hip fracture: N/A FRAX - Ten year risk for other major osteoporotic fracture: N/A BMD CHANGE from DXA on 03/31/19: -1.0% AP Spine L1_L4 -19.6% Femur NECK Left -12.6% Femur TOTAL HIP Left 24.2% Femur NECK Right 80.7% Femur TOTAL HIP Right See [facility] tab for the full report containing DXA result details Treatment Recommendations (Men and Women): All Patients: Calcium 1,200 mg/daily; vitamin D 1,000 IU/daily; Weight-bearing and muscle-building exercise; Dermatology Nurse to stop smoking. If lowest T-scores = -2.5; OR FRAX Hip score = 3% OR FRAX Major osteoporotic score = 20% First line treatment - Alendronate 70 mg once weekly (risedronate 35 mg once weekly if alendronate is not tolerated or contraindicated). Check serum calcium, creatinine and vitamin D 25-hydroxy. See Clinical Practice Guidelines Osteoporosis Management for the treatment of vitamin D deficiency. Second line treatment - See Clinical Practice Guidelines ?Osteoporosis Management? If lowest Z-score = -2.0, or if fracture occurs while on treatment, work up for secondary causes and consider referral to Endocrinology or Rheumatology. Suggested labs prior to referral: TSH; AM testosterone (men); ALT; creatinine; albumin; alkaline phosphatase; vitamin D 25-hydroxy; 24 hr urine for calcium/creatinine; parathyroid hormone; serum calcium WHO Criteria for Osteoporosis and low bone mass Normal = T-score of -1.0 or higher Low bone mass = T-score between -1.0 and -2.4 Osteoporosis = T-score -2.5 or lower Other Comments: This report electronically signed by Catia Mccoy on 05/26/2024 4:42 PM Procedure Note Catia Mccoy M.D., Rianna - 05/26/2024 CLINICAL HISTORY: PT takes lupron. DXA Haynes Findings: Combined results for accessions [id number] and [id number] Self Reported History / Risk Factors: History of Fracture (Adult), (C) HXLupron, (M) FX after age 51 Lowest T_Score: -3.3 Region: Forearm RADIUS 33 Left Lowest Z_Score: -2.0 Region: Forearm RADIUS 33 Left FRAX - Ten year risk for hip fracture: N/A FRAX - Ten year risk for other major osteoporotic fracture: N/A BMD CHANGE from DXA on 03/31/19: -1.0% AP Spine L1_L4 -19.6% Femur NECK Left -12.6% Femur TOTAL HIP Left 24.2% Femur NECK Right 80.7% Femur TOTAL HIP Right See [facility] tab for the full report containing DXA resultdetails Treatment Recommendations (Men and Women): All Patients: Calcium 1,200 mg/daily; vitamin D 1,000 IU/daily;Weight-bearing and muscle-building exercise; Dermatology Nurse to stop smoking. If lowest T-scores = -2.5; OR FRAX Hip score = 3% OR FRAX Majorosteoporotic score = 20% First line treatment - Alendronate 70 mg once weekly (risedronate 35 mg once weekly ifalendronate is not tolerated or contraindicated). Check serum calcium,creatinine and vitamin D 25-hydroxy. See Clinical Practice Guidelines Osteoporosis Management for the treatmentof vitamin D deficiency. Second line treatment - See Clinical Practice Guidelines ?OsteoporosisManagement? If lowest Z-score = -2.0, or if fracture occurs while on treatment, workup for secondary causes and consider referral to Endocrinology orRheumatology. Suggested labs prior to referral: TSH; AM testosterone (men); ALT;creatinine; albumin; alkaline phosphatase; vitamin D 25-hydroxy; 24 hrurine for calcium/creatinine; parathyroid hormone; serum calcium WHO Criteria for Osteoporosis and low bone mass Normal = T-score of -1.0 or higher Low bone mass = T-score between -1.0 and -2.4 Osteoporosis = T-score -2.5 or lower Other Comments: This report electronically signed by Catia Mccoy on 05/26/2024 4:42 PM Bakari Vogel) Cecilia Blanca DEXA SCAN from Last 3 Months Insurance Payer Benefit Plan / Group Subscriber ID Effective Dates Phone Address Type KP MEDICARE KP SNR ADV D(E) PLAN [id number] / [facility] [id number] 2011-[place] love Medicare - Risk (for [place] only) MEDICAL FINANCIAL ASSISTANCE - 50 MFA 50% [id number] 2024-02/23 Advance Directives Documents on File Type Date Recorded Patient Apartment Hotel Manager Expl anation Advance Directives and Livin g Will 07/16/2018 6:26 AM ADV DIR Advance Directives and Livin g Will 07/16/2018 SCANNED * Full Code (Latest Code Status on File) Date Activated Date Inactivated Comments 06/23/2024 2:44 PM 06/23/2024 10:27 PM Question Answer Comments Result Release to patient? Immediate * Full Code Date Activated Date Inactivated Comments 12/09/2023 3:32 PM 12/13/2023 5:49 PM Question Answer Comments Result Release to patient? Immediate * Full Code Date Activated Date Inactivated Comments 08/31/2018 8:27 PM 09/06/2018 11:46 PM * Full Code Date Activated Date Inactivated Comments 08/20/2018 7:03 PM 08/25/2018 6:35 PM * Full Code Date Activated Date Inactivated Comments 08/20/2018 11:58 AM 08/20/2018 7:03 PM Care Teams E Marketing Specialist Relationship Specialty Start Date End Date Bakari Brooks)Jean. [address] [place] [phone] (Work) [phone] (Fax) PCP - General Family Practice 04/06/11
--- OUTSIDE RECORDS SUMMARY | 2024-08-21 17:06 | XMS_ITS | Encounter Summary ---
Author Organization [facility] Address [address] [place] [address] Care Team Providers Care New Car Salesperson Name Role Phone Bakari Brooks) Jean. Primary Care Prov ider -[phone] Reason for Visit * Reason Onset Date Comments PHARMACY ONCOLOGY SERVICE 06/17/2024 PHARMACY ORAL ONCOLOGY SERVICE 06/17/2024 Encounter Details Date Type Department Care Team (Late st Contact Info) Description 06/17/2024 Telephone DEFAULT PHARMACY [facility] [address] [place] [address] Salas Gaston (Pharm.D), PHARM.D. [address] [place] [address] PHARMACY ONCOLOGY SERVICE; PHARMACY ORAL ONCOLOGY SERVICE Social History Tobacco [...] as of this encounter Progress Notes * Priscilla Hess - 07/15/2024 11:04 AM PDT Oral Chemo Management Service -- LAB REMINDER Will do labs PRISCILLA HESS Hematology/Oncology Department 07/15/2024 11:04 AM * Salas Gaston (Pharm.D), PHARM.D. - 06/17/2024 8:10 AM PDT National Oncology Oral Chemotherapy Management Type of Oral Chemo Visit: (enc): Follow up [facility] (pat): Indication (pat): Prostate cancer Oncologist (pat): Dr. Pantoja Compendia/Formulary review (Pat): Yes Financial barrier review (pat): Yes Best # for pharmacist appointment (pat): Work HIPAA Authorized Neighborhood Coordinator(s) (pat): Spouse ok for information Okay to leave detailed message (pat): Yes [email or web address] (pat): Yes Preferred Pharmacy (pat): [facility] Special requests (delivery, other) (pat): [facility] $5483.59 Subjective/Objective Spoke with (enc): Patient Subjective/Objective additional documention (pat): CURRENT DOSE: Abiraterone(1000mg PO) Prednisone 5mg daily Dosing History: Abiraterone(1000mg PO) Treatment Parameters Lab Parameters To Assess: Total [...] 2 weeks for 3 months, then monthly. Component Latest Ref [facility] 06/16/2024 9:50 AM ALT <=63 U/L 18 ALKALINE PHOSPHATASE <=125 U/L 127 (H) BILIRUBIN, TOTAL <=1.0 mg/dL 1.0 AST <=34 U/L 19 PSA <=6.5 ng/mL 6.4 TESTOSTERONE, TOTAL 221 - 716 ng/dL <4 (L) PHOSPHORUS 2.7 - 4.5 mg/dL 3.8 POTASSIUM 3.5 - 5.0 mEq/L 3.9 Legend: (H) High (L) Low Medication Therapy Assessment/Plan Interventions: Continue treatment Medication Conversions (enc) Assessment/Plan notes: 06/17/2024 Spoke to patient 1) Labs within parameters to Cont Zytiga/Pred 2) Cont. Kcl 20 meq daily. Pt is still taking abx for UTI but UTI sxs has improved significantly 3) Next labs in 4 weeks 07/14/24 4) Dr. Pantoja last appointment 05/21/24, RTC 3 months LFTS q2w x 3 months (until 06/24/24) ; then monthly. Oral chemo follow up date: 07/15/24 Oral chemo follow up date comment: Labs Lab follow up date: 07/14/24 Electronically signed by: Catherine Gaston, PharmD., BCOP Woods Superintendent Pharmacist Hematology/Oncology [facility] 06/17/2024 9:40 AM documented in this encounter Plan of Treatment Upcoming Encounters Date Type Department Care Team (Late st Contact Info) Description 09/22/2024 10:30 AM PDT Office Visit HEMATOLOGY/ONCOLOGY [address] [place] [phone] Adonis Pantoja)Rianna [address] [place] [phone] documented as of this encounter Results * PHOSPHATE (07/15/2024 12:59 PM PDT) [facility] PHOSPHORUS 3.3 2.7 - 4.5 mg/dL [facility] BLOOD / Unknown 07/15/2024 1 2:59 PM PDT Narrative [facility] - 07/15/2024 7:13 PM PDT DAVID ACCN: [id number] Adonis Vogel) Kit Blanca SERUM CHEMISTRY [facility] [address] [place] [address] * (ABNORMAL) POTASSIUM (07/15/2024 12:59 PM PDT) POTASSIUM 3.2(L) 3.5 - 5.0 mEq/L [facility] BLOOD / Unknown 07/15/2024 1 2:59 PM PDT Narrative [facility] - 07/15/2024 7:13 PM PDT DAVID ACCN: [id number] Adonis Pantoja M.D. SERUM CHEMISTRY Performing Organization Address [facility] Co de Phone Number [facility] [id number] [place] [address] * LIVER FUNCTION PANEL (TBILI, ALT, ALKP) (07/15/2024 12:59 PM PDT) ALT 18 <=63 U/L [facility] ALKALINE PHOSPHATASE 116 <=125 U/L [facility] BILIRUBIN, TOTAL 0.9 <=1.0 mg/dL [facility] BLOOD / Unknown 07/15/2024 1 2:59 PM PDT Narrative [facility] - 07/15/2024 7:21 PM PDT DAVID ACCN: [id number] Adonis Pantoja M.D. 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 [address] [place] [phone] (Work) [phone] (Fax) PCP - General Family Practice 04/06/11 documented as of this encounter
--- OUTSIDE RECORDS SUMMARY | 2024-08-21 17:06 | XMS_ITS ---
Author Organization [facility] Address [address] [place] [address] Care Team Providers Care Auto Wrecker Name Role Phone Bakari Brooks) Jean. 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 Linked Problems CANCER METASTATIC TO BONE Treatment Medications Current Day (Day 2 53, Cycle 1 - Planned for 07/31/2024) Next Day (Day 1, Cycle 2 - Planned for 10/24/2024) Acetaminophen (TYLENOL)Alteplase (CATHFLO ACTIVASE)diphenhydrAMINE (BENADRYL)EPINEPHrineEPINE PHrine (ADRENACLICK/EPIPEN/AUVI-Q )Famotidine (PF) (PEPCID)methylPREDNISolone Sod Succ (PF) (SOLU-Medrol PF)Sodium Chloride 0.9 %sodium chloride 0.9%Zoledronic Acid IVPB Acetaminophen Tablet 650 mg (TYLENOL)Alteplase Inj 2 mg (CATHFLO ACTIVASE)diphenhydrAMINE Inj 50 mg (BENADRYL)EPINEPHrine Inj Syg 0.3 mg (ADRENACLICK/EPIPEN)Famotidine (PF) Inj 20 mg (PEPCID)methylPREDNISolone Sod Succ (PF) Inj 125 mg (SOLU-Medrol PF)Sodium Chloride 0.9 % IV BolusSodium Chloride 0.9% IV PremixZoledronic Acid 3.5 mg in Sodium Chloride 0.9% 100 mL IVPB Acetaminophen Tablet 650 mg (TYLENOL)Alteplase Inj 2 mg (CATHFLO ACTIVASE)diphenhydrAMINE Inj 50 mg (BENADRYL)EPINEPHrine HCL (PF) Inj 0.3 mg (ADRENALIN)Famotidine (PF) Inj 20 mg (PEPCID)methylPREDNISolone Sod Succ (PF) Inj 125 mg (SOLU-Medrol PF)Sodium Chloride 0.9 % IV BolusSodium Chloride 0.9% IV PremixZoledronic Acid 3.5 mg in Sodium Chloride 0.9% 100 mL IVPB Past Plans No past plan information found. Radiation Treatments * No radiation treatments are documented for this patient in [facility]. Treatments may have been administered in another system. 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 05/01/2011 COLORECTAL CANCER SCREENING COUNSELING, DISCUSSION ONLY 05/01/2011 05/05/2011
--- OUTSIDE RECORDS SUMMARY | 2024-08-21 17:06 | XMS_ITS | Encounter Summary ---
Author Organization [facility] Address [address] [place] [address] Care Team Providers Care Departmental Buyer Name Role Phone Bakari Brooks) Jean. Primary Care Prov ider -[phone] Reason for Visit * Reason Onset Date Comments PHARMACY ORAL ONCOLOGY SERVICE 07/16/2024 Encounter Details Date Type Department Care Team (Late st Contact Info) Description 07/16/2024 Telephone DEFAULT PHARMACY [facility] [address] [address] [place] [address] Ghada Harmon (Pharm.D.), PHARM.D. [address] [place] [address] PHARMACY ORAL ONCOLOGY SERVICE Social History Tobacco [...] as of this encounter Progress Notes * Ghada Harmon (Pharm.D.), PHARM.D. - 07/16/2024 11:20 AM PDT Images from the original note were not included. National Oncology Oral Chemotherapy Management Type of Oral Chemo Visit: (enc): Follow up [facility] (pat): RV Indication (pat): Prostate cancer Oncologist (pat): Dr. Pantoja Compendia/Formulary review (Pat): Yes Financial barrier review (pat): Yes Best # for pharmacist appointment (pat): Work HIPAA Authorized Aerial Installer(s) (pat): Spouse ok for information Okay to leave detailed message (pat): Yes [email or web address] (pat): Yes Preferred Pharmacy (pat): [facility] Special requests (delivery, other) (pat): Copay $5483.59 Subjective/Objective Subjective/Objective additional documention (pat): CURRENT DOSE: Abiraterone(1000mg [...] 2 weeks for 3 months, then monthly. Is patient taking medication as directed (enc): Adherent Medication Therapy Assessment/Plan Interventions: Continue treatment, Supportive medication Medication Conversions (enc) Assessment/Plan notes: 07/16/2024 Called and left voice message (1) [...] then monthly. Oral chemo follow up date: 08/13/24 Oral chemo follow up date comment: labs Lab follow up date: 08/12/24 Ghada Harmon Pharm.D. Clinical Pharmacist Hematology/Oncology Department [facility] 07/16/2024 11:37 AM documented in this encounter Plan of Treatment Upcoming Encounters Date Type Department Care Team (Late st Contact Info) Description 09/22/2024 10:30 AM PDT Office Visit HEMATOLOGY/ONCOLOGY [address] [place] [phone] Adonis Pantoja), [place] [address] [place] [phone] Scheduled Orders Name Type Priority Associated Diagnoses Orde r Schedule LIVER FUNCTION PANEL (TBILI, ALT, ALKP) Lab STAT CANCER METASTATIC TO BONE Expected: 08/12/2024, Expires: 12/16/2024 AST Lab STAT CANCER METASTATIC TO BONE Expected: 08/12/2024, Expires: 12/16/2024 POTASSIUM Lab STAT CANCER METASTATIC TO BONE Expected: 08/12/2024, Expires: 12/16/2024 PHOSPHATE Lab STAT CANCER METASTATIC TO BONE Expected: 08/12/2024, Expires: 12/16/2024 PSA Lab STAT CANCER METASTATIC TO BONE Expected: 08/12/2024, Expires: 12/16/2024 TESTOSTERONE Lab STAT CANCER METASTATIC TO BONE Expected: 08/12/2024, Expires: 12/16/2024 documented as of this encounter Visit Diagnoses Diagnosis CANCER METASTATIC TO BONE documented in this encounter Care Teams Departmental Buyer Relationship Specialty Start Date End Date Bakari Brooks M.D., M.D. [address] [place] [phone] (Work) [phone] (Fax) PCP - General Family Practice 04/06/11 documented as of this encounter
--- OUTSIDE RECORDS SUMMARY | 2024-08-21 17:06 | XMS_ITS | Encounter Summary ---
Author Organization [facility] Address [address] [place] [address] Care Team Providers Care Fish Dressing Machine Feeder Name Role Phone Bakari Brooks M.D., M.D. Primary Care Prov ider -[phone] Encounter Details Date Type Department Care Team (Late st Contact Info) Description 02/01/2022 Orders Only SCAL IE E-VISITS ADMIN DEPT [address] [place] [address] Scal E-Visit, Provider (Rianna), Rianna [address] [place] [address] VACCINATION FOR SARS-COV-2 Social History Tobacco Use [...] 09/22/2024 10:30 AM PDT Office Visit HEMATOLOGY/ONCOLOGY [address] [place] [address] Adonis Pantoja), Rianna [address] [place] [id number] documented as of this encounter Visit Diagnoses Diagnosis VACCINATION FOR SARS-COV-2 documented in this encounter Care Teams Fish Dressing Machine Feeder Relationship Specialty Start Date End Date Bakari Brooks), MRoverto. [address] [place] [address] [phone] (Work) [phone] (Fax) PCP - General Family Practice 04/06/11 documented as of this encounter
[2024-08-21 17:07] VITALS: BP 173/69; PULSE 65; RESP 16; TEMP 36.3; O2SAT 98; BMI 28.2
--- NOTE | 2024-08-21 17:37 | ED.GENADULT ---
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 He is from [place] and recently was taken off some of his medications so he could have some teeth pulled. His doctor back in [place] told him that he needs to get some labs checked now due to being off the medication. He told his provider that he will only be able to go to the emergency department because that is all his insurance covers at this time since he is in [place], and is provider told him that is fine. Due to that the patient came here to get lab checks. He has no other symptoms at this time. No concern Related Data Home Medications ?Medication ?Instructions ?Recorded ?Confirmed allopurinol 100 mg tablet 100 mg PO DAILY 09/19/23 08/21/24 aspirin 81 mg tablet,delayed 81 mg PO DAILY 09/19/23 10/03/23 release (Adult Aspirin Regimen) atenolol .Route 09/19/23 10/03/23 Held on 08/21/24. Instructions: Doctor's Order acetaminophen 500 mg tablet 1,000 mg PO QID PRN 10/03/23 10/03/23 (Tylenol Extra Strength) abiraterone 250 mg tablet 1,000 mg PO DAILY 08/21/24 08/21/24 atenolol 25 mg tablet 25 mg PO BID 08/21/24 08/21/24 hydrochlorothiazide 25 mg tablet 25 mg PO BID 08/21/24 08/21/24 pantoprazole 40 mg tablet,delayed 40 mg PO BID 08/21/24 08/21/24 release potassium chloride 10 mEq 10 meq PO BID 08/21/24 08/21/24 tablet,extended release prednisone 5 mg tablet 5 mg PO DAILY 08/21/24 08/21/24 simvastatin 20 mg tablet 20 mg PO QPM 08/21/24 08/21/24 tamsulosin 0.4 mg capsule PO 08/21/24 Previous Rx's ?Medication ?Instructions ?Recorded Walker- 4 Wheels #1 ea 09/19/23 Allergies Allergy/AdvReac Type Severity Reaction Status Date / Time acetaminophen (From Percocet) AdvReac Mild Depression Verified 10/03/23 15:21 oxycodone (From Percocet) AdvReac Mild Depression Verified 10/03/23 15:21 Review of Systems Narrative: Pertinent systems reviewed and were negative unless stated in HPI PFSH PFS Medical History History of prediabetes ?Z87.898 - Personal history of other specified conditions (ICD-10) Colon cancer ?C18.9 - Malignant neoplasm of colon, unspecified (ICD-10) Surgical History History of hernia repair ?Z98.890 - Other specified postprocedural states (ICD-10) ?Z87.19 - Personal history of other diseases of the digestive system (ICD-10) Hx of hemorrhoidectomy ?Z98.890 - Other specified postprocedural states (ICD-10) Hx of tonsillectomy ?Z90.89 - Acquired absence of other organs (ICD-10) Hx of CABG ?Z95.1 - Presence of aortocoronary bypass graft (ICD-10) History of aortic aneurysm repair ?Z98.890 - Other specified postprocedural states (ICD-10) ?Z86.79 - Personal history of other diseases of the circulatory system (ICD-10) Social History Smoking Status: Former smoker What tobacco products do you use: cigarettes Smoking quit date/years: >15 years ago Do you use any of these nicotine containing products: None How often do you have a drink containing alcohol: 2-4 times a month AUDIT-C Alcohol total score: 2 Non-prescribed substance use: denies use Exam Narrative: Exam Narrative: Const: Well-nourished, Well-developed, in no distress Eyes: PERRL, no conjunctival injection, and symmetrical lids HENT: Atraumatic external nose and ears. Moist mucous membranes. MSK:Extremities w/o deformity, Normal Active ROM Skin: Warm, Dry. No rashes or lesions. Neuro: Normal Muscle tone, No focal neurological deficits. Psych: Awake, Alert, & Oriented x3. Appropriate mood and affect. Const: Vital Signs, click to edit/add: Vital Signs - 24 hr 08/21/24 17:07 Temperature 97.4 F L Pulse Rate [Pulse Oximeter] 65 Respiratory Rate 16 Blood Pressure [Ri ght Upper Arm] 173/69 H Pulse Oximetry 98 Oxygen Delivery Me thod Room Air Course Vital Signs Vital signs: Initial Vital Signs Temperature 97.4 F L 08/21/24 17:07 Temperature Source Temporal Artery Scan 08/21/24 17:07 Pulse Rate 65 08/21/24 17:07 Respiratory Rate 16 08/21/24 17:07 Blood Pressure 173/69 H 08/21/24 17:07 Blood Pressure Mean 103 08/21/24 17:07 Blood Pressure Position Sitting 08/21/24 17:07 Pulse Oximetry 98 08/21/24 17:07 Oxygen Delivery Method Room Air 08/21/24 17:07 Vital Signs Temperature 97.4 F L 08/21/24 17:07 Pulse Rate 65 08/21/24 17:07 Respiratory Rate 16 08/21/24 17:07 Blood Pressure 173/69 H 08/21/24 17:07 Pulse Oximetry 98 08/21/24 17:07 Oxygen Delivery Method Room Air 08/21/24 17:07 Temperature 97.4 F L 08/21/24 17:07 Pulse Rate 65 08/21/24 17:07 Respiratory Rate 16 08/21/24 17:07 Blood Pressure 173/69 H 08/21/24 17:07 Pulse Oximetry 98 08/21/24 17:07 Oxygen Delivery Method Room Air 08/21/24 17:07 Medications Administered Medications: Generic Name Dose Route Start Last Admin Trade Name Freq PRN Reason Stop Dose Admin Potassium Chloride 40 meq 08/21/24 19:35 08/21/24 19:43 Potassium Chloride 10 Meq Capsule Er PO 08/21/24 19:36 40 meq ONCE ONE Administration Medical Decision Making MDM Narrative Medical decision making narrative: Patient is a 83-year-old male presenting for lab draws at the direction of his provider back in [place]. They want a BMP, phosphorus, LFTs. These were ordered. Lab work shows no concerning findings other than he does have a slightly low potassium. This was replenished. He will be discharged. Lab Data Labs: Lab Results 08/21/24 Range/Units 18:31 Sodium 137 (135-149) mmol/L Potassium 3.0 L (3.6-5.1) mmol/L Chloride 101 (96-114) mmol/L Carbon Dioxide 27 (20-32) mmol/L Anion Gap 9 (7-15) mEq/L BUN 28 (7-30) mg/dL Creatinine 1.1 (0.5-1.5) mg/dL Estimated Creat Clear 56.83 Estimated GFR 67 ml/min Glucose 112 (60-115) mg/dL Calcium 9.3 (8.4-10.6) mg/dL Phosphorus 2.6 (2.5-4.5) mg/dL Total Bilirubin 0.9 (0.1-1.5) mg/dL Direct Bilirubin 0.4 (0.0-0.5) mg/dL AST 26 (12-35) U/L ALT 17 (4-50) U/L Alkaline Phosphatase 130 (40-150) U/L Total Protein 7.3 (6.0-8.3) g/dL Albumin 4.3 (3.3-5.0) g/dL Discharge Plan Discharge Clinical Impression: Acute hypokalemia Patient Disposition: Home, Self-Care Condition: Stable Instructions: Hypokalemia (ED) Prescriptions: No Action acetaminophen [Tylenol Extra Strength] 500 mg tablet 1,000 mg PO QID PRN atenolol .Route aspirin [Adult Aspirin Regimen] 81 mg tablet,delayed release (DR/EC) 81 mg PO DAILY allopurinol 100 mg tablet 100 mg PO DAILY (DME) Walker- 4 Wheels [facility] See Rx Instructions .Route Qty: 1 0RF Rx Instructions: As directed prednisone 5 mg tablet 5 mg PO DAILY atenolol 25 mg tablet 25 mg PO BID potassium chloride 10 mEq tablet extended release 10 meq PO BID tamsulosin 0.4 mg capsule PO pantoprazole 40 mg tablet,delayed release (DR/EC) 40 mg PO BID simvastatin 20 mg tablet 20 mg PO QPM hydrochlorothiazide 25 mg tablet 25 mg PO BID abiraterone 250 mg tablet 1,000 mg PO DAILY Follow Up/Referrals: Provider,Not a Local [Primary Care Provider, Family Practice] Stand Alone Forms: [facility] Info Instructions
[2024-08-21 19:14] LABS: Chloride* 101 mmol/L (96-114)
[2024-08-21 19:15] LABS: Albumin* 4.3 g/dL (3.3-5.0); Sodium* 137 mmol/L (135-149)
[2024-08-21 19:17] LABS: Blood Urea Nitrogen* 28 mg/dL (7-30); Creatinine* 1.1 mg/dL (0.5-1.5); Est. Creatinine Clearance* 56.83; Estimated Glomerular Filt Rate 67 ml/min
[2024-08-21 19:18] LABS: Alanine Aminotransferase* 17 U/L (4-50); Alkaline Phosphatase* 130 U/L (40-150); Anion Gap 9 mEq/L (7-15); Aspartate Amino Transferase* 26 U/L (12-35); Bilirubin Direct* 0.4 mg/dL (0.0-0.5); Bilirubin Total* 0.9 mg/dL (0.1-1.5); Calcium* 9.3 mg/dL (8.4-10.6); Carbon Dioxide* 27 mmol/L (20-32); Glucose* 112 mg/dL (60-115); Phosphorus* 2.6 mg/dL (2.5-4.5); Total Protein* 7.3 g/dL (6.0-8.3)
[2024-08-21] MEDS: POTASSIUM CHLORIDE 10 MEQ CAPSULE ER 40 MEQ PO (19:43)
== END 2024-08-21 21:05 | disposition home or self-care (01) ==
PROVIDERS: Emergency Provider Student in an Organized Health Care Education/Training Program
DX: E87.6 Hypokalemia (principal); C61 Malignant neoplasm of prostate; C79.51 Secondary malignant neoplasm of bone
CPT/HCPCS: 36415; 80048; 80076; 84100; 99282; 99283; A9270